=== PATIENT | male | born 1960 | race African-American/Black ===

== ENCOUNTER 2018-01-24 15:12 | Emergency (ER) | payer MEDICAID, OTHER ==
[~2018-01-24] VITALS: Ht 193 cm; Wt 146.0 kg
[2018-01-24] MEDS ORDERED: KETOROLAC 30MG/ML VIAL IV ONE (15:45)
[2018-01-24 18:36] LABS: CLARITY URINE CLEAR (CLEAR); COLOR URINE DARK YELLOW (YELLOW); KETONES URINE TRACE (NEGATIVE); LEUKOCYTE ESTERASE URINE NEGATIVE (NEGATIVE); NITRITE URINE NEGATIVE (NEGATIVE); OCCULT BLOOD URINE 1+ (NEGATIVE); PH URINE 5.5 (4.5-8.0); PROTEIN URINE 3+ (NEGATIVE); SPECIFIC GRAVITY URINE 1.043 (1.005-1.030)
[2018-01-24] MEDS ORDERED: FENTANYL CITRATE/PF 50MCG/ML 2ML VIAL IV ONE (18:45)
[2018-01-24 21:05] VITALS: BP 192/101
== END 2018-01-24 22:15 | disposition home or self-care (01) ==
LOC: ER 15:12
DX: R07.89 Other chest pain (principal); R07.81 Pleurodynia; N40.0 Benign prostatic hyperplasia without lower urinary tract symptoms; K86.9 Disease of pancreas, unspecified; E11.9 Type 2 diabetes mellitus without complications; I10 Essential (primary) hypertension; V43.92XA Unspecified car occupant injured in collision with other type car in traffic accident, initial encounter; W22.10XA Striking against or struck by unspecified automobile airbag, initial encounter; Y93.89 Activity, other specified; Y92.488 Other paved roadways as the place of occurrence of the external cause
CPT/HCPCS: 71101; 71250; 74176; 76705; 81003; 96374; 96375; 99284; J1885; J3010

== ENCOUNTER 2021-02-03 13:32 | Inpatient (IN) | payer MEDICAID ==
[~2021-02-03] VITALS: Ht 170.2 cm; Wt 157.0 kg
[2021-02-03] VITALS (10 sets, daily range): BP systolic 68–129; BP diastolic 29–85
[2021-02-03] MEDS ORDERED: CEFTRIAXONE 1 G PREMIX 50 ML IV ONE (14:00)
[2021-02-03] MEDS ORDERED: SODIUM CHLORIDE 0.9% 1000ML BAG (SEPSIS BOLUS) IV ONE (14:00)
[2021-02-03 14:20] LABS: HEMOGLOBIN. 13.5 g/dL (14.0-18.0); MEAN CORPUSCULAR HEMOGLOBIN 27.5 pg (28.0-32.0); MEAN CORPUSCULAR VOLUME 85.8 fL (80.0-94.0); PLATELET 191 x1000/uL (130-400); RED CELL DISTRIBUTION WIDTH 14.1 % (11.6-14.6)
[2021-02-03 14:25] LABS: CHLORIDE 94 mEq/L (98-107)
[2021-02-03 14:29] LABS: INR 1.3; PROTHROMBIN TIME 13.5 sec (9.6-11.0)
[2021-02-03 14:42] LABS: CLARITY URINE TURBID (CLEAR); COLOR URINE YELLOW (YELLOW); KETONES URINE 1+ (NEGATIVE); LEUKOCYTE ESTERASE URINE 2+ (NEGATIVE); NITRITE URINE NEGATIVE (NEGATIVE); OCCULT BLOOD URINE 3+ (NEGATIVE); PROTEIN URINE 2+ (NEGATIVE)
[2021-02-03] MEDS ORDERED: ASPIRIN 81MG TABLET PO ONE (15:00)
[2021-02-03] MEDS ORDERED: HEPARIN 25,000 UNITS PREMIX 250 ML IV ONE (15:00)
[2021-02-03] MEDS ORDERED: HEPARIN 5000 UNITS/ML VIAL IV ONE (15:00)
[2021-02-03] MEDS ORDERED: PIPERACILLIN/TAZ 3.375G PREMIX 50 ML IV ONE (15:45)
[2021-02-03] MEDS ORDERED: VANCOMYCIN 1 G PREMIX 200 ML IV ONE (15:45)
[2021-02-03] MEDS ORDERED: HEPARIN BOLUS PRN aPTT 30-44 IV ×2 (15:45→15:52)
[2021-02-03] MEDS ORDERED: HEPARIN BOLUS PRN aPTT <30 IV ×2 (15:45→15:52)
[2021-02-03] MEDS ORDERED: INSULIN REGULAR (DRIP) 100 UNITS in SODIUM CHLORIDE 0.9% 100 ML IV SCH (16:00)
[2021-02-03] MEDS ORDERED: HEPARIN 60 UNITS/KG BOLUS IV NR (16:00)
[2021-02-03] MEDS ORDERED: HEPARIN 25,000 UNITS in DEXT 5% WATER 250 ML IV SCH (16:00)
[2021-02-03 16:16] LABS: PLATELET ESTIMATE NORMAL
[2021-02-03 16:25] LABS: CREATINE KINASE 9217 IU/L (39-308)
[2021-02-03 18:48] LABS: PHOSPHORUS 3.6 mg/dL (2.5-4.9)
[2021-02-03] MEDS ORDERED: INSULIN REGULAR (DRIP) 100 UNITS in SODIUM CHLORIDE 0.9% 99 ML IV ONE (19:45)
[2021-02-03] MEDS ORDERED: DEXTROSE 50% WATER 50ML SYRINGE IV PRN ×2 (20:00)
[2021-02-03] MEDS: BLOOD SUGAR DIAGNOSTIC STRIP TEST SCH ×5 (20:11→23:22)
[2021-02-03] MEDS ORDERED: ONDANSETRON HCL 4MG/2ML INJ IV PRN (20:15)
[2021-02-03] MEDS ORDERED: ACETAMINOPHEN 650MG/20.3ML UDC GT PRN (20:15)
[2021-02-03] MEDS ORDERED: IPRATROPIUM/ALBUTEROL 0.5-3(2.5)MG/3ML NEB HHN PRN (20:15)
[2021-02-03] MEDS ORDERED: SODIUM CHLORIDE 0.9% 1,000 ML IV ONE (20:30)
[2021-02-03 20:32] LABS: BG CARBOXYHEMOGLOBIN 0.3 % (0.5-1.5); BG DEOXYHEMOGLOBIN 4.3 % (0.0-5.0); BG FRACTION INSPIRED OXYGEN 32; BG HCO3 ACT 23.4 mmol/L (22.0-26.0); BG METHEMOGLOBIN 0.2 % (0.0-1.5); BG OXYGEN SATURATION 95.7 % (92.0-98.5); BG OXYHEMOGLOBIN 95.2 % (94.0-97.0); BG PCO2 30.7 mmHg (35.0-45.0); BG PO2 79.7 mmHg (75.0-100.0); BG SAMPLE SITE LEFT RADIAL; BG TOTAL HEMOGLOBIN 13.2 g/dL (12.0-18.0); BG VENT MODE NASAL CANNULA
[2021-02-03] MEDS ORDERED: SODIUM POLYSTYRENE SULFONATE 15 G/60 ML BOT PO NR ×2 (21:00→23:00)
[2021-02-03] MEDS ORDERED: SODIUM CHLORIDE 0.9% 1000ML BAG (SEPSIS BOLUS) IV NR (21:00)
[2021-02-03] MEDS ORDERED: VANCOMYCIN 1 G PREMIX 200 ML IV NR ×2 (21:00→23:00)
[2021-02-03] MEDS ORDERED: SODIUM BICARBONATE 8.4% 1 MEQ/ML 50ML SYR IV NR (21:00)
[2021-02-03] MEDS ORDERED: CALCIUM GLUCONATE 1GM PREMIX 50 ML IV NR (21:00)
[2021-02-03] MEDS ORDERED: HEPARIN 25,000 UNITS PREMIX 250 ML IV SCH (21:30)
[2021-02-03] MEDS ORDERED: PIPERACILLIN/TAZOBACTAM 3.375 G in DEXTROSE 5% WATER 50 ML IV SCH (22:00)
[2021-02-03] MEDS: PIPERACILLIN/TAZOBACTAM 3.375 G in DEXTROSE 5% WATER 50 ML IV SCH (22:18)
[2021-02-03] MEDS ORDERED: NOREPINEPHRINE 8 MG in DEXTROSE 5% WATER 250 ML IV PRN (22:45)
[2021-02-03] MEDS ORDERED: AMIODARONE HCL 150 MG in DEXT 5% WATER 100 ML IV NR (23:00)
[2021-02-03 23:36] LABS: PHOSPHORUS 1.5 mg/dL (2.5-4.9)
[2021-02-03 23:41] LABS: CREATINE KINASE MB FRACTION 22.1 ng/mL (0.5-3.6)
[2021-02-03 23:59] LABS: HEPATITIS B SURFACE ANTIGEN NEGATIVE
[2021-02-04] VITALS (93 sets, daily range): BP systolic 86–143; BP diastolic 22–97
[2021-02-04] MEDS ORDERED: INSULIN REGULAR (DRIP) 100 UNITS in SODIUM CHLORIDE 0.9% 100 ML IV SCH
[2021-02-04] MEDS: AMIODARONE HCL 900 MG in DEXT 5% WATER 500 ML IV SCH ×2 (00:41→15:52)
[2021-02-04] MEDS: INSULIN REGULAR (DRIP) 100 UNITS in SODIUM CHLORIDE 0.9% 100 ML IV SCH ×2 (01:13→16:54)
[2021-02-04 06:26] LABS: HEMATOCRIT. 37.5 % (42.0-52.0); HEMOGLOBIN. 12.6 g/dL (14.0-18.0); MEAN CORPUSCULAR HEMOGLOBIN 27.8 pg (28.0-32.0); MEAN CORPUSCULAR VOLUME 82.8 fL (80.0-94.0); MEAN PLATELET VOLUME 9.4 fl (7.4-10.4); PLATELET 164 x1000/uL (130-400); RED BLOOD CELL COUNT 4.53 mill/uL (4.7-6.1)
[2021-02-04 06:30] LABS: CHLORIDE 113 mEq/L (98-107)
[2021-02-04] MEDS ORDERED: PHENYLEPHRINE 50 MG in DEXT 5% WATER 245 ML IV PRN (07:30)
[2021-02-04] MEDS: BLOOD SUGAR DIAGNOSTIC STRIP TEST SCH ×3 (08:00→12:00)
[2021-02-04] MEDS ORDERED: SODIUM CHLORIDE 0.9% 1,000 ML IV SCH (08:00)
[2021-02-04 08:14] LABS: BG BASE EXCESS -0.3 mmol/L (-2.0-2.0); BG CARBOXYHEMOGLOBIN 0.3 % (0.5-1.5); BG DEOXYHEMOGLOBIN 2.8 % (0.0-5.0); BG FRACTION INSPIRED OXYGEN 36; BG HCO3 ACT 23.7 mmol/L (22.0-26.0); BG METHEMOGLOBIN 0.3 % (0.0-1.5); BG OXYGEN SATURATION 97.2 % (92.0-98.5); BG OXYHEMOGLOBIN 96.6 % (94.0-97.0); BG PCO2 36.9 mmHg (35.0-45.0); BG PH 7.426 (7.350-7.450); BG PO2 98.6 mmHg (75.0-100.0); BG SAMPLE SITE RIGHT RADIAL; BG TOTAL HEMOGLOBIN 12.5 g/dL (12.0-18.0)
[2021-02-04] MEDS ORDERED: ASPIRIN 325MG EC TABLET PO SCH (09:00)
[2021-02-04] MEDS: SODIUM CHLORIDE 0.45% 1,000 ML IV SCH ×3 (09:05→21:46)
[2021-02-04] MEDS ORDERED: LIDOCAINE HCL 1% 10 MG/ML 10ML VIAL ONE (11:08)
[2021-02-04] MEDS ORDERED: IPRATROPIUM/ALBUTEROL 0.5-3(2.5)MG/3ML NEB HHN PRN (11:15)
[2021-02-04 11:35] LABS: PLATELET ESTIMATE NORMAL
[2021-02-04] MEDS ORDERED: DILTIAZEM HCL 5MG/ML 5ML VIAL IV NR (14:15)
[2021-02-04] MEDS ORDERED: AMIODARONE HCL 50MG/ML 3ML VIAL IV ONE (14:30)
[2021-02-04] MEDS ORDERED: AMIODARONE HCL 150 MG in DEXT 5% WATER 100 ML IV NR (15:00)
[2021-02-04] MEDS: PANTOPRAZOLE SODIUM 40 MG/VIAL IV SCH ×2 (15:02→20:09)
[2021-02-04] MEDS: PIPERACILLIN/TAZOBACTAM 3.375 G in DEXTROSE 5% WATER 50 ML IV SCH ×3 (15:59→21:46)
[2021-02-04] MEDS ORDERED: AMIODARONE HCL 150 MG in DEXT 5% WATER 97 ML IV PRN (19:00)
[2021-02-04] MEDS: METOPROLOL TARTRATE 25MG TABLET PO SCH (20:09)
[2021-02-04] MEDS: IPRATROPIUM BROMIDE (0.02%) 0.5MG/2.5ML NEB HHN SCH (20:36)
[2021-02-05] VITALS (104 sets, daily range): BP systolic 56–162; BP diastolic 26–114
[2021-02-05] MEDS: IPRATROPIUM BROMIDE (0.02%) 0.5MG/2.5ML NEB HHN SCH ×4 (01:28→20:13)
[2021-02-05 05:19] LABS: CHLORIDE 111 mEq/L (98-107); HEMATOCRIT. 35.7 % (42.0-52.0); HEMOGLOBIN. 11.7 g/dL (14.0-18.0); MEAN CORPUSCULAR HEMOGLOBIN 27.5 pg (28.0-32.0); MEAN CORPUSCULAR VOLUME 83.9 fL (80.0-94.0); MEAN PLATELET VOLUME 9.5 fl (7.4-10.4); PLATELET 130 x1000/uL (130-400); RED BLOOD CELL COUNT 4.26 mill/uL (4.7-6.1)
[2021-02-05 05:32] LABS: PHOSPHORUS 3.1 mg/dL (2.5-4.9)
[2021-02-05 05:42] LABS: CREATINE KINASE 3024 IU/L (39-308)
[2021-02-05] MEDS: ACETAMINOPHEN 650MG/20.3ML UDC GT PRN (05:54)
[2021-02-05] MEDS: SODIUM CHLORIDE 0.45% 1,000 ML IV SCH ×5 (06:00→18:20)
[2021-02-05] MEDS: AMIODARONE HCL 900 MG in DEXT 5% WATER 500 ML IV SCH (06:17)
[2021-02-05] MEDS: PIPERACILLIN/TAZOBACTAM 3.375 G in DEXTROSE 5% WATER 50 ML IV SCH ×3 (06:17→21:00)
[2021-02-05] MEDS: BLOOD SUGAR DIAGNOSTIC STRIP TEST SCH ×9 (06:33→22:00)
[2021-02-05] MEDS: PANTOPRAZOLE SODIUM 40 MG/VIAL IV SCH ×2 (09:14→20:59)
[2021-02-05] MEDS: METOPROLOL TARTRATE 25MG TABLET PO SCH ×2 (09:14→20:59)
[2021-02-05 09:45] LABS: BG BASE EXCESS -3.3 mmol/L (-2.0-2.0); BG CARBOXYHEMOGLOBIN 0.7 % (0.5-1.5); BG DEOXYHEMOGLOBIN 2.5 % (0.0-5.0); BG FRACTION INSPIRED OXYGEN 36; BG METHEMOGLOBIN 0.2 % (0.0-1.5); BG OXYGEN SATURATION 97.5 % (92.0-98.5); BG OXYHEMOGLOBIN 96.6 % (94.0-97.0); BG PCO2 35.2 mmHg (35.0-45.0); BG PH 7.393 (7.350-7.450); BG PO2 101.9 mmHg (75.0-100.0); BG SAMPLE SITE RIGHT RADIAL; BG TOTAL HEMOGLOBIN 12.5 g/dL (12.0-18.0); BG VENT MODE NASAL CANNULA
[2021-02-05] MEDS ORDERED: LABETALOL HCL 5MG/ML VIAL 20ML IV ONE (10:20)
[2021-02-05 10:25] LABS: PLATELET ESTIMATE NORMAL
[2021-02-05] MEDS: INSULIN REGULAR (DRIP) 100 UNITS in SODIUM CHLORIDE 0.9% 100 ML IV SCH (22:50)
[2021-02-06] VITALS (48 sets, daily range): BP systolic 58–155; BP diastolic 35–97
[2021-02-06] MEDS ORDERED: DEXTROSE 50% WATER 50ML SYRINGE IV PRN (00:30)
[2021-02-06] MEDS: SODIUM CHLORIDE 0.45% 1,000 ML IV SCH ×3 (00:45→21:46)
[2021-02-06] MEDS: AMIODARONE HCL 900 MG in DEXT 5% WATER 482 ML IV SCH ×2 (00:45→23:18)
[2021-02-06] MEDS: INSULIN GLARGINE UD 100 UNITS/ML SYR SUBCUT SCH ×2 (00:56→21:44)
[2021-02-06] MEDS: IPRATROPIUM BROMIDE (0.02%) 0.5MG/2.5ML NEB HHN SCH ×4 (02:07→20:43)
[2021-02-06] MEDS: ACETAMINOPHEN 650MG/20.3ML UDC GT PRN (02:37)
[2021-02-06 05:48] LABS: HEMATOCRIT. 36.9 % (42.0-52.0); HEMOGLOBIN. 12.3 g/dL (14.0-18.0); MEAN CORPUSCULAR HEMOGLOBIN 27.6 pg (28.0-32.0); MEAN CORPUSCULAR VOLUME 82.8 fL (80.0-94.0); MEAN PLATELET VOLUME 9.7 fl (7.4-10.4); PLATELET 133 x1000/uL (130-400); RED BLOOD CELL COUNT 4.46 mill/uL (4.7-6.1); RED CELL DISTRIBUTION WIDTH 13.9 % (11.6-14.6)
[2021-02-06 05:49] LABS: CHLORIDE 110 mEq/L (98-107)
[2021-02-06 05:59] LABS: PHOSPHORUS 3.5 mg/dL (2.5-4.9)
[2021-02-06] MEDS: BLOOD SUGAR DIAGNOSTIC STRIP TEST SCH ×4 (06:04→21:34)
[2021-02-06] MEDS: PIPERACILLIN/TAZOBACTAM 3.375 G in DEXTROSE 5% WATER 50 ML IV SCH ×2 (06:41→14:55)
[2021-02-06] MEDS: INSULIN LISPRO 100 UNITS/ML SUBCUT SCH ×7 (06:44→21:45)
[2021-02-06 08:10] LABS: BG BASE EXCESS -4.8 mmol/L (-2.0-2.0); BG CARBOXYHEMOGLOBIN 0.8 % (0.5-1.5); BG DEOXYHEMOGLOBIN 2.3 % (0.0-5.0); BG HCO3 ACT 19.8 mmol/L (22.0-26.0); BG METHEMOGLOBIN 0.2 % (0.0-1.5); BG OXYGEN SATURATION 97.7 % (92.0-98.5); BG OXYHEMOGLOBIN 96.7 % (94.0-97.0); BG PCO2 35.2 mmHg (35.0-45.0); BG PH 7.368 (7.350-7.450); BG PO2 112.4 mmHg (75.0-100.0); BG SAMPLE SITE RIGHT RADIAL; BG TOTAL HEMOGLOBIN 13.1 g/dL (12.0-18.0); BG VENT MODE NASAL CANNULA
[2021-02-06] MEDS: METOPROLOL TARTRATE 25MG TABLET PO SCH ×2 (09:36→20:38)
[2021-02-06] MEDS: PANTOPRAZOLE SODIUM 40 MG/VIAL IV SCH ×2 (09:36→20:38)
[2021-02-06] MEDS ORDERED: VANCOMYCIN 1250MG in DEXTROSE 5% WATER 250ML IV SCH (11:00)
[2021-02-06 11:55] LABS: NUCLEATED RED BLOOD CELLS 1 /100 WBC
[2021-02-06 11:56] LABS: PLATELET ESTIMATE NORMAL
[2021-02-06] MEDS ORDERED: ALBUMIN HUMAN 25GM/100ML (25%) IV NR (14:00)
[2021-02-06] MEDS ORDERED: CEFTRIAXONE 2 G PREMIX 50 ML IV SCH (17:15)
[2021-02-06] MEDS: CEFTRIAXONE 2 G in DEXTROSE 5% WATER 50 ML IV SCH (19:51)
[2021-02-06] MEDS: CHLORPROMAZINE HCL 10 MG TABLET PO SCH (21:43)
[2021-02-07] VITALS (51 sets, daily range): BP systolic 125–183; BP diastolic 60–113
[2021-02-07] MEDS: IPRATROPIUM BROMIDE (0.02%) 0.5MG/2.5ML NEB HHN SCH ×4 (00:31→21:10)
[2021-02-07] MEDS: SODIUM CHLORIDE 0.45% 1,000 ML IV SCH ×4 (01:31→22:22)
[2021-02-07 05:07] LABS: HEMATOCRIT. 35.4 % (42.0-52.0); HEMOGLOBIN. 11.7 g/dL (14.0-18.0); MEAN CORPUSCULAR HEMOGLOBIN 27.3 pg (28.0-32.0); MEAN CORPUSCULAR VOLUME 82.6 fL (80.0-94.0); MEAN PLATELET VOLUME 9.5 fl (7.4-10.4); PLATELET 139 x1000/uL (130-400); RED BLOOD CELL COUNT 4.29 mill/uL (4.7-6.1); RED CELL DISTRIBUTION WIDTH 14.1 % (11.6-14.6)
[2021-02-07 05:30] LABS: PHOSPHORUS 3.4 mg/dL (2.5-4.9)
[2021-02-07] MEDS: BLOOD SUGAR DIAGNOSTIC STRIP TEST SCH ×4 (06:12→21:00)
[2021-02-07] MEDS: CHLORPROMAZINE HCL 10 MG TABLET PO SCH (06:15)
[2021-02-07] MEDS: INSULIN LISPRO 100 UNITS/ML SUBCUT SCH ×8 (06:16→22:08)
[2021-02-07] MEDS: PANTOPRAZOLE SODIUM 40 MG/VIAL IV SCH ×2 (09:00→22:05)
[2021-02-07] MEDS: METOPROLOL TARTRATE 25MG TABLET PO SCH ×2 (09:00→22:06)
[2021-02-07 09:15] LABS: PLATELET ESTIMATE NORMAL
[2021-02-07] MEDS ORDERED: CHLORPROMAZINE HCL 10 MG TABLET PO PRN (12:15)
[2021-02-07] MEDS ORDERED: CLONIDINE 0.1MG TABLET PO PRN (13:15)
[2021-02-07] MEDS: AMLODIPINE 5MG TABLET PO SCH ×2 (14:20→22:05)
[2021-02-07] MEDS: INSULIN GLARGINE UD 100 UNITS/ML SYR SUBCUT SCH ×2 (14:21→22:07)
[2021-02-07] MEDS: HYDRALAZINE HCL 25MG TABLET PO SCH (17:44)
[2021-02-07] MEDS: CEFTRIAXONE 2 G in DEXTROSE 5% WATER 50 ML IV SCH (22:34)
[2021-02-07] MEDS: AMIODARONE HCL 900 MG in DEXT 5% WATER 482 ML IV SCH (23:32)
[2021-02-08] VITALS (11 sets, daily range): BP systolic 120–144; BP diastolic 53–80
[2021-02-08] MEDS: IPRATROPIUM BROMIDE (0.02%) 0.5MG/2.5ML NEB HHN SCH ×3 (01:30→21:53)
[2021-02-08 06:16] LABS: HEMATOCRIT. 34.6 % (42.0-52.0); HEMOGLOBIN. 11.5 g/dL (14.0-18.0); MEAN CORPUSCULAR HEMOGLOBIN 27.3 pg (28.0-32.0); MEAN CORPUSCULAR VOLUME 82.2 fL (80.0-94.0); MEAN PLATELET VOLUME 9.4 fl (7.4-10.4); PLATELET 120 x1000/uL (130-400); RED BLOOD CELL COUNT 4.21 mill/uL (4.7-6.1); RED CELL DISTRIBUTION WIDTH 13.8 % (11.6-14.6)
[2021-02-08 07:30] LABS: PHOSPHORUS 3.2 mg/dL (2.5-4.9)
[2021-02-08] MEDS: BLOOD SUGAR DIAGNOSTIC STRIP TEST SCH ×4 (07:37→21:29)
[2021-02-08] MEDS: INSULIN LISPRO 100 UNITS/ML SUBCUT SCH ×8 (07:44→21:33)
[2021-02-08] MEDS: PANTOPRAZOLE SODIUM 40 MG/VIAL IV SCH ×2 (10:07→21:30)
[2021-02-08] MEDS: HYDRALAZINE HCL 25MG TABLET PO SCH ×2 (10:07→18:03)
[2021-02-08] MEDS: METOPROLOL TARTRATE 25MG TABLET PO SCH ×2 (10:08→21:31)
[2021-02-08] MEDS: AMLODIPINE 5MG TABLET PO SCH ×2 (10:08→21:30)
[2021-02-08] MEDS: INSULIN GLARGINE UD 100 UNITS/ML SYR SUBCUT SCH ×2 (10:09→21:34)
[2021-02-08] MEDS: SODIUM CHLORIDE 0.45% 1,000 ML IV SCH (10:15)
[2021-02-08] MEDS ORDERED: THROAT LOZENGES-BENZOCAINE/MENTH/CETYLPYRD CL LOZENGES MM PRN (10:30)
[2021-02-08 12:17] LABS: PLATELET ESTIMATE SLIGHTLY DECREASED
[2021-02-08] MEDS: SODIUM CHLORIDE 0.9% 1,000 ML IV SCH ×2 (14:33→23:25)
[2021-02-08] MEDS: CEFTRIAXONE 2 G in DEXTROSE 5% WATER 50 ML IV SCH (18:03)
[2021-02-09] VITALS (12 sets, daily range): BP systolic 107–160; BP diastolic 56–93
[2021-02-09] MEDS: IPRATROPIUM BROMIDE (0.02%) 0.5MG/2.5ML NEB HHN SCH ×3 (01:00→21:50)
[2021-02-09] MEDS: BLOOD SUGAR DIAGNOSTIC STRIP TEST SCH ×4 (06:19→21:41)
[2021-02-09 06:43] LABS: HEMATOCRIT. 34.5 % (42.0-52.0); HEMOGLOBIN. 11.6 g/dL (14.0-18.0); MEAN CORPUSCULAR HEMOGLOBIN 27.8 pg (28.0-32.0); MEAN CORPUSCULAR VOLUME 82.7 fL (80.0-94.0); MEAN PLATELET VOLUME 9.6 fl (7.4-10.4); PLATELET 126 x1000/uL (130-400); RED BLOOD CELL COUNT 4.17 mill/uL (4.7-6.1)
[2021-02-09 09:03] LABS: PHOSPHORUS 2.9 mg/dL (2.5-4.9)
[2021-02-09] MEDS: HYDRALAZINE HCL 25MG TABLET PO SCH ×2 (09:56→18:04)
[2021-02-09] MEDS: INSULIN LISPRO 100 UNITS/ML SUBCUT SCH ×8 (09:57→21:41)
[2021-02-09] MEDS: AMLODIPINE 5MG TABLET PO SCH ×2 (09:57→21:39)
[2021-02-09] MEDS: SODIUM CHLORIDE 0.9% 1,000 ML IV SCH ×2 (09:57→21:37)
[2021-02-09] MEDS: METOPROLOL TARTRATE 25MG TABLET PO SCH ×2 (09:57→21:39)
[2021-02-09] MEDS: PANTOPRAZOLE SODIUM 40 MG/VIAL IV SCH ×2 (09:59→21:39)
[2021-02-09] MEDS: INSULIN GLARGINE UD 100 UNITS/ML SYR SUBCUT SCH ×2 (10:06→21:42)
[2021-02-09] MEDS ORDERED: POTASSIUM CHLORIDE 20MEQ TABLET SR PO SCH (13:45)
[2021-02-09] MEDS: CEFTRIAXONE 2 G in DEXTROSE 5% WATER 50 ML IV SCH (18:04)
[2021-02-09 20:20] LABS: PLATELET ESTIMATE DECREASED
[2021-02-10] VITALS (11 sets, daily range): BP systolic 110–168; BP diastolic 55–86
[2021-02-10] MEDS: APIXABAN 5 MG TABLET PO SCH ×3 (01:05→17:44)
[2021-02-10] MEDS: ACETAMINOPHEN 650MG/20.3ML UDC GT PRN ×2 (01:16→10:29)
[2021-02-10] MEDS: IPRATROPIUM BROMIDE (0.02%) 0.5MG/2.5ML NEB HHN SCH ×4 (02:59→21:10)
[2021-02-10] MEDS: SODIUM CHLORIDE 0.9% 1,000 ML IV SCH (05:45)
[2021-02-10] MEDS: BLOOD SUGAR DIAGNOSTIC STRIP TEST SCH ×4 (06:28→20:26)
[2021-02-10] MEDS: INSULIN LISPRO 100 UNITS/ML SUBCUT SCH ×8 (06:28→20:42)
[2021-02-10 07:10] LABS: HEMATOCRIT. 32.1 % (42.0-52.0); HEMOGLOBIN. 10.8 g/dL (14.0-18.0); MEAN CORPUSCULAR HEMOGLOBIN 27.8 pg (28.0-32.0); MEAN CORPUSCULAR VOLUME 82.6 fL (80.0-94.0); MEAN PLATELET VOLUME 8.8 fl (7.4-10.4); PLATELET 157 x1000/uL (130-400); RED BLOOD CELL COUNT 3.89 mill/uL (4.7-6.1)
[2021-02-10] MEDS ORDERED: MAGNESIUM OXIDE 400MG TABLET PO SCH (08:30)
[2021-02-10 10:11] LABS: PLATELET ESTIMATE NORMAL
[2021-02-10] MEDS: ASPIRIN 81MG TABLET PO SCH (10:17)
[2021-02-10] MEDS: HYDRALAZINE HCL 50MG TABLET PO SCH ×2 (10:18→20:01)
[2021-02-10] MEDS: METOPROLOL TARTRATE 50MG TABLET PO SCH ×2 (10:19→20:01)
[2021-02-10] MEDS: AMLODIPINE 5MG TABLET PO SCH ×2 (10:19→20:01)
[2021-02-10] MEDS: PANTOPRAZOLE SODIUM 40 MG/VIAL IV SCH ×2 (10:19→20:01)
[2021-02-10] MEDS: INSULIN GLARGINE UD 100 UNITS/ML SYR SUBCUT SCH ×2 (10:22→22:31)
[2021-02-10] MEDS: CEFTRIAXONE 2 G in DEXTROSE 5% WATER 50 ML IV SCH (19:59)
[2021-02-11] VITALS (8 sets, daily range): BP systolic 124–170; BP diastolic 67–93
[2021-02-11] MEDS: IPRATROPIUM BROMIDE (0.02%) 0.5MG/2.5ML NEB HHN SCH ×3 (00:55→13:17)
[2021-02-11] MEDS: BLOOD SUGAR DIAGNOSTIC STRIP TEST SCH ×3 (06:10→17:08)
[2021-02-11 06:52] LABS: HEMATOCRIT. 31.8 % (42.0-52.0); HEMOGLOBIN. 10.8 g/dL (14.0-18.0); MEAN CORPUSCULAR HEMOGLOBIN 27.8 pg (28.0-32.0); MEAN PLATELET VOLUME 8.9 fl (7.4-10.4); PLATELET 244 x1000/uL (130-400); RED BLOOD CELL COUNT 3.88 mill/uL (4.7-6.1); RED CELL DISTRIBUTION WIDTH 14.2 % (11.6-14.6)
[2021-02-11 07:07] LABS: PHOSPHORUS 3.3 mg/dL (2.5-4.9)
[2021-02-11] MEDS: INSULIN LISPRO 100 UNITS/ML SUBCUT SCH ×6 (07:20→17:20)
[2021-02-11] MEDS: ASPIRIN 81MG TABLET PO SCH (08:40)
[2021-02-11] MEDS: PANTOPRAZOLE SODIUM 40 MG/VIAL IV SCH (08:40)
[2021-02-11] MEDS: AMLODIPINE 5MG TABLET PO SCH (08:41)
[2021-02-11] MEDS: APIXABAN 5 MG TABLET PO SCH ×2 (08:41→17:14)
[2021-02-11] MEDS: HYDRALAZINE HCL 50MG TABLET PO SCH (08:41)
[2021-02-11] MEDS: METOPROLOL TARTRATE 50MG TABLET PO SCH (08:41)
[2021-02-11] MEDS ORDERED: MAGNESIUM 2 G PREMIX 50 ML IV NR (11:00)
[2021-02-11 11:11] LABS: PLATELET ESTIMATE NORMAL
[2021-02-11] MEDS: INSULIN GLARGINE UD 100 UNITS/ML SYR SUBCUT SCH (11:22)
[2021-02-11] MEDS ORDERED: LEVOFLOXACIN 250MG TABLET PO SCH (16:30)
== END 2021-02-11 18:41 | DRG 720 ==
LOC: EDBEDREQSVC 14:37 → EDBEDREQTM 14:37 → ER 14:49 → EDBEDREQTM 15:48 → EDBEDREQ 15:48 → EDBEDREQSVC 15:48 → ENRESERV 20:22 → MICUNO 21:09 → 3WST 02-07 16:25
PROVIDERS: ADMIT Internal Medicine; ATTEND Internal Medicine
PROC: 02HV33Z Insertion of Infusion Device into Superior Vena Cava, Percutaneous Approach (ICD-10-PCS; principal; 2021-02-04)
PROC: B548ZZA Ultrasonography of Superior Vena Cava, Guidance (ICD-10-PCS; 2021-02-04)
DX: A41.51 Sepsis due to Escherichia coli [E. coli] (principal); N17.0 Acute kidney failure with tubular necrosis; J96.00 Acute respiratory failure, unspecified whether with hypoxia or hypercapnia; R65.21 Severe sepsis with septic shock; E11.10 Type 2 diabetes mellitus with ketoacidosis without coma; D68.59 Other primary thrombophilia; E43 Unspecified severe protein-calorie malnutrition; E87.1 Hypo-osmolality and hyponatremia; I21.4 Non-ST elevation (NSTEMI) myocardial infarction; G92.8 Other toxic encephalopathy; Z68.43 Body mass index [BMI] 50.0-59.9, adult; I27.29 Other secondary pulmonary hypertension; I48.20 Chronic atrial fibrillation, unspecified; E87.0 Hyperosmolality and hypernatremia; I42.9 Cardiomyopathy, unspecified; M62.82 Rhabdomyolysis; E86.1 Hypovolemia; I50.20 Unspecified systolic (congestive) heart failure; E87.5 Hyperkalemia; N12 Tubulo-interstitial nephritis, not specified as acute or chronic; E78.5 Hyperlipidemia, unspecified; G89.29 Other chronic pain; M54.50 Low back pain, unspecified; E78.00 Pure hypercholesterolemia, unspecified; R74.01 Elevation of levels of liver transaminase levels; K92.1 Melena; K40.90 Unilateral inguinal hernia, without obstruction or gangrene, not specified as recurrent; D64.9 Anemia, unspecified; E87.8 Other disorders of electrolyte and fluid balance, not elsewhere classified; S00.03XA Contusion of scalp, initial encounter; E66.9 Obesity, unspecified; M16.11 Unilateral primary osteoarthritis, right hip; R79.89 Other specified abnormal findings of blood chemistry; R19.7 Diarrhea, unspecified; I11.0 Hypertensive heart disease with heart failure; J45.909 Unspecified asthma, uncomplicated; E87.3 Alkalosis; X58.XXXA Exposure to other specified factors, initial encounter; Z79.01 Long term (current) use of anticoagulants; Y93.89 Activity, other specified; Y92.89 Other specified places as the place of occurrence of the external cause; Y99.8 Other external cause status; Z82.49 Family history of ischemic heart disease and other diseases of the circulatory system; Z83.3 Family history of diabetes mellitus; Z86.73 Personal history of transient ischemic attack (TIA), and cerebral infarction without residual deficits
CPT/HCPCS: 36415; 36600; 71045; 71250; 74176; 76937; 80048; 80053; 80061; 80202; 81003; 82010; 82140; 82270; 82375; 82550; 82553; 82805; 82962; 83036; 83605; 83735; 83930; 84100; 84145; 84484; 84550; 85025; 86705; 86709; 86803; 87077; 87186; 87340; 93005; 93306; 93970; 94640; 97110; 97162; 97166; 97530; 99291; C1725; C9113; J0282; J0610; J0696; J1644; J1815; J2405; J2543; J3370; J3475; J3490; J7030; J7040; J7050; J7060; P9047; Q0161

== ENCOUNTER 2021-04-04 20:56 | Emergency (ER) | payer MEDICAID ==
[~2021-04-04] VITALS: Ht 182.9 cm; Wt 127.0 kg
[2021-04-04 23:01] LABS: CLARITY URINE CLEAR (CLEAR); COLOR URINE YELLOW (YELLOW); KETONES URINE NEGATIVE (NEGATIVE); LEUKOCYTE ESTERASE URINE 1+ (NEGATIVE); NITRITE URINE NEGATIVE (NEGATIVE); OCCULT BLOOD URINE NEGATIVE (NEGATIVE); PH URINE 6.5 (4.5-8.0); PROTEIN URINE 1+ (NEGATIVE); SPECIFIC GRAVITY URINE 1.011 (1.005-1.030); UROBILINOGEN URINE 0.2 E.U./dL (0.2-1.0)
[2021-04-04 23:27] LABS: CHLORIDE 104 mEq/L (98-107)
[2021-04-04 23:31] LABS: BASOPHILS % 0.4 % (0.0-2.0); EOSINOPHILS % 0.2 % (0.0-5.0); HEMATOCRIT. 34.6 % (42.0-52.0); HEMOGLOBIN. 11.7 g/dL (14.0-18.0); LYMPHOCYTES % 11.8 % (20.0-50.0); MEAN CORPUSCULAR HEMOGLOBIN 27.6 pg (28.0-32.0); MEAN CORPUSCULAR VOLUME 81.3 fL (80.0-94.0); MEAN PLATELET VOLUME 8.2 fl (7.4-10.4); MONOCYTES % 6.2 % (2.0-8.0); NEUTROPHILS % 81.4 % (40.0-76.0); PLATELET 110 x1000/uL (130-400); RED BLOOD CELL COUNT 4.25 mill/uL (4.7-6.1); RED CELL DISTRIBUTION WIDTH 15.1 % (11.6-14.6)
[2021-04-05] MEDS ORDERED: CEFTRIAXONE 1 G PREMIX 50 ML IV ONE
[2021-04-05] MEDS ORDERED: IPRATROPIUM BROMIDE (0.02%) 0.5MG/2.5ML NEB HHN STA (00:31)
[2021-04-05] MEDS ORDERED: SODIUM CHLORIDE 0.9% 1,000 ML IV ONE (00:45)
[2021-04-05] MEDS ORDERED: ALBUTEROL (0.083%) 2.5MG/3ML NEB HHN SCH (01:00)
[2021-04-05 02:00] VITALS: BP 165/103
[2021-04-05] MEDS ORDERED: CEFP200T13 MT (02:01)
== END 2021-04-05 03:17 | disposition home or self-care (01) ==
LOC: ER 20:56
DX: N39.0 Urinary tract infection, site not specified (principal); E11.649 Type 2 diabetes mellitus with hypoglycemia without coma; I10 Essential (primary) hypertension; Z20.822 Contact with and (suspected) exposure to COVID-19; E78.00 Pure hypercholesterolemia, unspecified; Z79.4 Long term (current) use of insulin; Z79.899 Other long term (current) drug therapy
CPT/HCPCS: 36415; 71045; 80053; 81003; 82962; 83880; 84484; 85025; 87426; 93005; 96365; 99285; J0696; J7030

== ENCOUNTER 2022-02-09 08:35 | Inpatient (IN) | payer MEDICAID, OTHER ==
[~2022-02-09] VITALS: Ht 188 cm; Wt 131.5 kg
[~2022-02-09 08:35] MED LIST: CEFP200T13 MT
[2022-02-09] MEDS ORDERED: SODIUM CHLORIDE 0.9% 1,000 ML IV ONE (09:30)
[2022-02-09 10:07] LABS: HEMATOCRIT. 40.3 % (42.0-52.0); HEMOGLOBIN. 13.5 g/dL (14.0-18.0); MEAN CORPUSCULAR HEMOGLOBIN 27.2 pg (28.0-32.0); MEAN CORPUSCULAR VOLUME 80.9 fL (80.0-94.0); MEAN PLATELET VOLUME 8.8 fl (7.4-10.4); PLATELET 417 x1000/uL (130-400); RED BLOOD CELL COUNT 4.98 mill/uL (4.7-6.1); RED CELL DISTRIBUTION WIDTH 14.1 % (11.6-14.6)
[2022-02-09 10:16] LABS: INR 1.1; PROTHROMBIN TIME 11.9 sec (9.6-11.0)
[2022-02-09 10:18] LABS: CHLORIDE 95 mEq/L (98-107)
[2022-02-09 10:37] LABS: CREATINE KINASE 1248 IU/L (39-308)
[2022-02-09 10:50] LABS: PLATELET ESTIMATE INCREASED
[2022-02-09] MEDS ORDERED: CALCIUM CHLORIDE 1GM/10ML SYR IV ONE (11:00)
[2022-02-09] MEDS ORDERED: INSULIN REGULAR (HUMULIN R) 300UNITS/3ML VIAL IV ONE ×2 (11:00→13:15)
[2022-02-09 11:32] LABS: BG BASE EXCESS -7.8 mmol/L (-2.0-2.0); BG CARBOXYHEMOGLOBIN 0.8 % (0.5-1.5); BG DEOXYHEMOGLOBIN 3.9 % (0.0-5.0); BG FRACTION INSPIRED OXYGEN 21; BG HCO3 ACT 17.1 mmol/L (22.0-26.0); BG METHEMOGLOBIN 0.3 % (0.0-1.5); BG OXYGEN SATURATION 96.1 % (92.0-98.5); BG PCO2 33.2 mmHg (35.0-45.0); BG PO2 86.3 mmHg (75.0-100.0); BG SAMPLE SITE RIGHT RADIAL; BG TOTAL HEMOGLOBIN 13.4 g/dL (12.0-18.0); BG VENT MODE ROOM AIR
[2022-02-09] MEDS ORDERED: INSULIN REGULAR (DRIP) 100 UNITS in SODIUM CHLORIDE 0.9% 99 ML IV SCH (11:45)
[2022-02-09] MEDS ORDERED: MORPHINE SULFATE 4 MG/ML CPJ (NOT FOR IM USE) IV ONE ×2 (11:45→15:45)
[2022-02-09] MEDS ORDERED: INSULIN REGULAR 100U/100ML PMX 100 ML IV SCH (11:48)
[2022-02-09 12:14] LABS: CLARITY URINE CLEAR (CLEAR); COLOR URINE YELLOW (YELLOW); KETONES URINE 1+ (NEGATIVE); LEUKOCYTE ESTERASE URINE NEGATIVE (NEGATIVE); NITRITE URINE NEGATIVE (NEGATIVE); OCCULT BLOOD URINE 2+ (NEGATIVE); PROTEIN URINE 1+ (NEGATIVE); SPECIFIC GRAVITY URINE 1.023 (1.005-1.030); UROBILINOGEN URINE 0.2 E.U./dL (0.2-1.0)
[2022-02-09 16:03] LABS: PHOSPHORUS 4.2 mg/dL (2.5-4.9)
[2022-02-10] MEDS ORDERED: DEXAMETHASONE 4MG/ML 1ML VIAL IV SCH
[2022-02-10 01:14] VITALS: BP 114/57
[2022-02-10 08:00] VITALS: BP 98/62
[2022-02-10] MEDS ORDERED: DEXTROSE 50% WATER 50ML SYRINGE IV PRN (09:00)
[2022-02-10] MEDS ORDERED: ONDANSETRON HCL 4MG/2ML INJ IV PRN (09:00)
[2022-02-10] MEDS ORDERED: NALOXONE HCL 0.4MG/ML VIAL IV PRN (09:00)
[2022-02-10] MEDS ORDERED: ACETAMINOPHEN 325MG TABLET PO PRN (09:30)
[2022-02-10] MEDS: HYDROCODONE/ACETAMINOPHEN 10/325MG TABLET PO SCH ×3 (10:53→19:28)
[2022-02-10] MEDS: SODIUM CHLORIDE 0.9% 1,000 ML IV SCH ×2 (10:58→19:29)
[2022-02-10] MEDS: INSULIN GLARGINE 100 UNITS/ML SUBCUT SCH ×2 (10:59→22:04)
[2022-02-10 11:59] LABS: HEMATOCRIT. 35.9 % (42.0-52.0); HEMOGLOBIN. 11.9 g/dL (14.0-18.0); MEAN CORPUSCULAR HEMOGLOBIN 26.7 pg (28.0-32.0); MEAN CORPUSCULAR VOLUME 80.8 fL (80.0-94.0); MEAN PLATELET VOLUME 8.8 fl (7.4-10.4); PLATELET 398 x1000/uL (130-400); RED BLOOD CELL COUNT 4.45 mill/uL (4.7-6.1)
[2022-02-10] MEDS: BLOOD SUGAR DIAGNOSTIC STRIP TEST SCH ×3 (12:20→21:00)
[2022-02-10] MEDS ORDERED: SODIUM POLYSTYRENE SULFONATE 15 G/60 ML BOT PO NR (13:00)
[2022-02-10] MEDS: INSULIN LISPRO 100 UNITS/ML SUBCUT SCH ×3 (15:41→22:03)
[2022-02-10] MEDS ORDERED: INSULIN LISPRO 100 UNITS/ML SUBCUT SCH (17:20)
[2022-02-10 18:09] LABS: PLATELET ESTIMATE NORMAL
[2022-02-10 20:00] VITALS: BP 147/82
[2022-02-11] VITALS: BP 129/83
[2022-02-11 04:00] VITALS: BP 116/58
[2022-02-11] MEDS: HYDROCODONE/ACETAMINOPHEN 10/325MG TABLET PO SCH ×3 (05:03→20:00)
[2022-02-11] MEDS: SODIUM CHLORIDE 0.9% 1,000 ML IV SCH ×2 (05:04→16:27)
[2022-02-11] MEDS: BLOOD SUGAR DIAGNOSTIC STRIP TEST SCH ×4 (07:35→21:39)
[2022-02-11 07:54] LABS: BASOPHILS % 0.1 % (0.0-2.0); EOSINOPHILS % 0.5 % (0.0-5.0); HEMATOCRIT. 34.4 % (42.0-52.0); HEMOGLOBIN. 11.6 g/dL (14.0-18.0); LYMPHOCYTES % 15.3 % (20.0-50.0); MEAN CORPUSCULAR HEMOGLOBIN 26.9 pg (28.0-32.0); MEAN CORPUSCULAR VOLUME 79.7 fL (80.0-94.0); MEAN PLATELET VOLUME 8.4 fl (7.4-10.4); MONOCYTES % 10.7 % (2.0-8.0); NEUTROPHILS % 73.4 % (40.0-76.0); PLATELET 356 x1000/uL (130-400); RED BLOOD CELL COUNT 4.32 mill/uL (4.7-6.1); RED CELL DISTRIBUTION WIDTH 13.8 % (11.6-14.6)
[2022-02-11 08:00] VITALS: BP 126/75
[2022-02-11] MEDS: INSULIN GLARGINE 100 UNITS/ML SUBCUT SCH ×2 (10:01→21:38)
[2022-02-11] MEDS: INSULIN LISPRO 100 UNITS/ML SUBCUT SCH ×4 (10:02→21:39)
[2022-02-11 12:00] VITALS: BP 112/65
[2022-02-11] MEDS ORDERED: VANCOMYCIN 2,000 MG in DEXT 5% WATER 500 ML IV NR (15:00)
[2022-02-11 16:00] VITALS: BP 111/71
[2022-02-11] MEDS: CEFTRIAXONE 1,000 MG in DEXTROSE 5% WATER 50 ML IV SCH (16:25)
[2022-02-11] MEDS: MORPHINE SULFATE 2 MG/ML CPJ (NOT FOR IM USE) IV PRN ×2 (16:30→21:24)
[2022-02-11] MEDS ORDERED: GADOTERATE MEGLUMINE 5 MMOL/10 ML VIAL IV ONE (19:54)
[2022-02-11 20:00] VITALS: BP 102/60
[2022-02-12] VITALS (59 sets, daily range): BP systolic 90–159; BP diastolic 3–77
[2022-02-12] MEDS: SODIUM CHLORIDE 0.9% 1,000 ML IV SCH (01:08)
[2022-02-12] MEDS: HYDROCODONE/ACETAMINOPHEN 10/325MG TABLET PO SCH ×5 (04:00→20:12)
[2022-02-12] MEDS ORDERED: LIDOCAINE HCL 1%/EPI 1:200,000 30 ML VIAL ONE (06:19)
[2022-02-12] MEDS ORDERED: THROMBIN (BOVINE) 5000 UNITS/VIAL TOP ONE (06:19)
[2022-02-12] MEDS ORDERED: GENTAMICIN SULF 40MG/ML 2ML VIAL ONE (06:19)
[2022-02-12] MEDS ORDERED: PROPOFOL 200MG/20ML VIAL IV ONE (06:31)
[2022-02-12] MEDS ORDERED: ROCURONIUM BROMIDE 10MG/ML VIAL 5ML IV ONE ×4 (06:31→09:50)
[2022-02-12] MEDS ORDERED: FENTANYL CITRATE/PF 50MCG/ML 2ML VIAL ONE (06:31)
[2022-02-12] MEDS ORDERED: MIDAZOLAM HCL 2 MG/2 ML VIAL ONE (06:32)
[2022-02-12] MEDS: INSULIN LISPRO 100 UNITS/ML SUBCUT SCH ×3 (06:33→21:25)
[2022-02-12] MEDS: BLOOD SUGAR DIAGNOSTIC STRIP TEST SCH ×3 (06:33→21:31)
[2022-02-12] MEDS ORDERED: PHENYLEPHRINE HCL 10 MG/ML 1ML (IV VIAL) IV ONE (06:34)
[2022-02-12] MEDS ORDERED: HYDROMORPHONE HCL/PF 2MG/ML CPJ ONE (07:57)
[2022-02-12 08:10] LABS: BASOPHILS % 0.3 % (0.0-2.0); EOSINOPHILS % 0.7 % (0.0-5.0); HEMATOCRIT. 35.7 % (42.0-52.0); HEMOGLOBIN. 12.2 g/dL (14.0-18.0); LYMPHOCYTES % 17.6 % (20.0-50.0); MEAN CORPUSCULAR HEMOGLOBIN 27.5 pg (28.0-32.0); MEAN CORPUSCULAR VOLUME 80.8 fL (80.0-94.0); MEAN PLATELET VOLUME 8.3 fl (7.4-10.4); MONOCYTES % 12.8 % (2.0-8.0); NEUTROPHILS % 68.6 % (40.0-76.0); PLATELET 312 x1000/uL (130-400); RED BLOOD CELL COUNT 4.42 mill/uL (4.7-6.1)
[2022-02-12] MEDS ORDERED: EPHEDRINE SULFATE 50MG/ML VIAL ONE (08:28)
[2022-02-12 08:32] LABS: CHLORIDE 100 mEq/L (98-107)
[2022-02-12] MEDS ORDERED: LIDOCAINE HCL 1% 10 MG/ML 10ML VIAL ONE (08:33)
[2022-02-12] MEDS ORDERED: CEFAZOLIN SODIUM 1000MG/VIAL ONE (08:33)
[2022-02-12] MEDS: INSULIN GLARGINE 100 UNITS/ML SUBCUT SCH ×2 (10:00→21:23)
[2022-02-12] MEDS ORDERED: NEOSTIGMINE METHYLSULFATE 1MG/ML 10 ML VIAL ONE (10:04)
[2022-02-12] MEDS ORDERED: GLYCOPYRROLATE 0.2 MG/ML 2ML VIAL ONE ×2 (10:04→10:05)
[2022-02-12] MEDS: NICARDIPINE 100 MG in SODIUM CHLORIDE 0.9% 60 ML IV PRN ×2 (11:35→20:08)
[2022-02-12] MEDS: DEXT 5%/LACTATED RINGERS 1,000 ML IV SCH (11:36)
[2022-02-12] MEDS: VANCOMYCIN 1G PREMIX 200 ML IV SCH (13:44)
[2022-02-12] MEDS ORDERED: VANCOMYCIN 1.25GM PMX (XELLIA) 250 ML IV SCH (15:00)
[2022-02-12] MEDS: CEFTRIAXONE 1,000 MG in DEXTROSE 5% WATER 50 ML IV SCH (15:26)
[2022-02-12] MEDS: MORPHINE SULFATE 4 MG/ML CPJ (NOT FOR IM USE) IV PRN ×2 (18:17→21:22)
[2022-02-12] MEDS ORDERED: INSULIN LISPRO 100 UNITS/ML SUBCUT NR (21:00)
[2022-02-13] VITALS (89 sets, daily range): BP systolic 64–167; BP diastolic 46–165
[2022-02-13] MEDS: MORPHINE SULFATE 4 MG/ML CPJ (NOT FOR IM USE) IV PRN ×3 (02:40→14:37)
[2022-02-13] MEDS: DEXT 5%/LACTATED RINGERS 1,000 ML IV SCH ×3 (02:44→10:51)
[2022-02-13] MEDS: HYDROCODONE/ACETAMINOPHEN 10/325MG TABLET PO SCH ×6 (03:51→20:18)
[2022-02-13 05:34] LABS: BASOPHILS % 0.4 % (0.0-2.0); EOSINOPHILS % 0.1 % (0.0-5.0); HEMATOCRIT. 31.4 % (42.0-52.0); HEMOGLOBIN. 10.4 g/dL (14.0-18.0); MEAN CORPUSCULAR HEMOGLOBIN 27.1 pg (28.0-32.0); MEAN CORPUSCULAR VOLUME 81.7 fL (80.0-94.0); MEAN PLATELET VOLUME 8.5 fl (7.4-10.4); MONOCYTES % 12.6 % (2.0-8.0); NEUTROPHILS % 77.9 % (40.0-76.0); PLATELET 272 x1000/uL (130-400); RED BLOOD CELL COUNT 3.85 mill/uL (4.7-6.1); RED CELL DISTRIBUTION WIDTH 13.7 % (11.6-14.6)
[2022-02-13] MEDS: BLOOD SUGAR DIAGNOSTIC STRIP TEST SCH ×4 (05:53→21:13)
[2022-02-13] MEDS: VANCOMYCIN 1G PREMIX 200 ML IV SCH (05:53)
[2022-02-13] MEDS: INSULIN LISPRO 100 UNITS/ML SUBCUT SCH ×7 (06:01→21:18)
[2022-02-13] MEDS: NICARDIPINE 100 MG in SODIUM CHLORIDE 0.9% 60 ML IV PRN (09:12)
[2022-02-13] MEDS: INSULIN GLARGINE 100 UNITS/ML SUBCUT SCH ×2 (09:15→21:18)
[2022-02-13] MEDS ORDERED: CLONIDINE 0.1MG TABLET PO PRN (12:15)
[2022-02-13] MEDS ORDERED: HYDRALAZINE HCL 100MG TABLET PO NR (12:15)
[2022-02-13] MEDS: AMLODIPINE 10MG TABLET PO SCH (13:23)
[2022-02-13] MEDS: SODIUM CHLORIDE 0.9% 1,000 ML IV SCH (13:24)
[2022-02-13] MEDS: CEFTRIAXONE 1,000 MG in DEXTROSE 5% WATER 50 ML IV SCH (14:33)
[2022-02-13] MEDS: HYDRALAZINE HCL 100MG TABLET PO SCH (20:17)
[2022-02-14] VITALS (46 sets, daily range): BP systolic 99–149; BP diastolic 56–84
[2022-02-14] MEDS: VANCOMYCIN 1G PREMIX 200 ML IV SCH (00:28)
[2022-02-14] MEDS: HYDROCODONE/ACETAMINOPHEN 10/325MG TABLET PO SCH ×7 (04:16→21:30)
[2022-02-14 05:55] LABS: BASOPHILS % 0.1 % (0.0-2.0); EOSINOPHILS % 1.1 % (0.0-5.0); HEMOGLOBIN. 9.7 g/dL (14.0-18.0); LYMPHOCYTES % 15.5 % (20.0-50.0); MEAN CORPUSCULAR HEMOGLOBIN 26.8 pg (28.0-32.0); MEAN CORPUSCULAR VOLUME 80.5 fL (80.0-94.0); MEAN PLATELET VOLUME 8.3 fl (7.4-10.4); MONOCYTES % 12.4 % (2.0-8.0); NEUTROPHILS % 70.9 % (40.0-76.0); PLATELET 242 x1000/uL (130-400); RED BLOOD CELL COUNT 3.61 mill/uL (4.7-6.1); RED CELL DISTRIBUTION WIDTH 13.9 % (11.6-14.6)
[2022-02-14] MEDS: BLOOD SUGAR DIAGNOSTIC STRIP TEST SCH ×4 (06:04→21:00)
[2022-02-14] MEDS: INSULIN LISPRO 100 UNITS/ML SUBCUT SCH ×5 (06:06→21:32)
[2022-02-14] MEDS: HYDRALAZINE HCL 100MG TABLET PO SCH ×2 (08:35→21:00)
[2022-02-14] MEDS: SODIUM CHLORIDE 0.9% 1,000 ML IV SCH (08:35)
[2022-02-14] MEDS: AMLODIPINE 10MG TABLET PO SCH (08:36)
[2022-02-14] MEDS: INSULIN GLARGINE 100 UNITS/ML SUBCUT SCH ×2 (10:11→21:31)
[2022-02-14] MEDS: MORPHINE SULFATE 4 MG/ML CPJ (NOT FOR IM USE) IV PRN (11:42)
[2022-02-14] MEDS: TAMSULOSIN HCL 0.4MG SR CAPSULE PO SCH ×2 (12:30→18:10)
[2022-02-14] MEDS: FINASTERIDE 5MG TABLET PO SCH (13:47)
[2022-02-14] MEDS: CEFTRIAXONE 1,000 MG in DEXTROSE 5% WATER 50 ML IV SCH (16:10)
[2022-02-14] MEDS ORDERED: DIPHENHYDRAMINE 25MG CAPSULE PO PRN (18:15)
[2022-02-14] MEDS: RIFAMPIN 300MG CAPSULE PO SCH (21:30)
[2022-02-15] VITALS: BP 100/52
[2022-02-15 04:00] VITALS: BP 99/68
[2022-02-15] MEDS: SODIUM CHLORIDE 0.9% 1,000 ML IV SCH (04:15)
[2022-02-15] MEDS: HYDROCODONE/ACETAMINOPHEN 10/325MG TABLET PO SCH ×3 (04:30→08:44)
[2022-02-15] MEDS: INSULIN LISPRO 100 UNITS/ML SUBCUT SCH ×4 (06:27→21:00)
[2022-02-15] MEDS: BLOOD SUGAR DIAGNOSTIC STRIP TEST SCH ×4 (06:27→21:22)
[2022-02-15 06:28] LABS: HEMOGLOBIN. 8.6 g/dL (14.0-18.0); MEAN CORPUSCULAR HEMOGLOBIN 27.5 pg (28.0-32.0); MEAN CORPUSCULAR VOLUME 80.5 fL (80.0-94.0); MEAN PLATELET VOLUME 7.8 fl (7.4-10.4); PLATELET 235 x1000/uL (130-400); RED BLOOD CELL COUNT 3.11 mill/uL (4.7-6.1); RED CELL DISTRIBUTION WIDTH 13.9 % (11.6-14.6)
[2022-02-15 08:00] VITALS: BP 106/52
[2022-02-15] MEDS: FINASTERIDE 5MG TABLET PO SCH (08:43)
[2022-02-15] MEDS: AMLODIPINE 10MG TABLET PO SCH (08:43)
[2022-02-15] MEDS: TAMSULOSIN HCL 0.4MG SR CAPSULE PO SCH ×2 (08:43→17:36)
[2022-02-15] MEDS: RIFAMPIN 300MG CAPSULE PO SCH ×2 (08:43→21:30)
[2022-02-15] MEDS: HYDRALAZINE HCL 100MG TABLET PO SCH (08:44)
[2022-02-15 10:29] LABS: PLATELET ESTIMATE NORMAL
[2022-02-15] MEDS: INSULIN GLARGINE 100 UNITS/ML SUBCUT SCH ×2 (10:32→21:31)
[2022-02-15 12:00] VITALS: BP 94/54
[2022-02-15] MEDS: CEFTRIAXONE 1,000 MG in DEXTROSE 5% WATER 50 ML IV SCH (15:40)
[2022-02-15 16:00] VITALS: BP 107/56
[2022-02-15 20:00] VITALS: BP 122/66
[2022-02-15] MEDS: HYDRALAZINE HCL 25MG TABLET PO SCH (21:00)
[2022-02-16] VITALS (7 sets, daily range): BP systolic 97–183; BP diastolic 50–87
[2022-02-16] MEDS: HYDROCODONE/ACETAMINOPHEN 10/325MG TABLET PO PRN ×4 (02:36→22:46)
[2022-02-16] MEDS: SODIUM CHLORIDE 0.9% 1,000 ML IV SCH ×2 (02:40→21:00)
[2022-02-16] MEDS: INSULIN LISPRO 100 UNITS/ML SUBCUT SCH ×4 (06:15→21:00)
[2022-02-16] MEDS: BLOOD SUGAR DIAGNOSTIC STRIP TEST SCH ×4 (06:15→21:00)
[2022-02-16 06:16] LABS: BASOPHILS % 0.5 % (0.0-2.0); EOSINOPHILS % 1.8 % (0.0-5.0); HEMOGLOBIN. 8.2 g/dL (14.0-18.0); LYMPHOCYTES % 15.5 % (20.0-50.0); MEAN CORPUSCULAR HEMOGLOBIN 27.8 pg (28.0-32.0); MEAN PLATELET VOLUME 7.7 fl (7.4-10.4); MONOCYTES % 14.5 % (2.0-8.0); NEUTROPHILS % 67.7 % (40.0-76.0); PLATELET 230 x1000/uL (130-400); RED BLOOD CELL COUNT 2.96 mill/uL (4.7-6.1)
[2022-02-16 07:27] LABS: CLARITY URINE CLEAR (CLEAR); COLOR URINE YELLOW (YELLOW); KETONES URINE NEGATIVE (NEGATIVE); LEUKOCYTE ESTERASE URINE NEGATIVE (NEGATIVE); NITRITE URINE NEGATIVE (NEGATIVE); OCCULT BLOOD URINE 1+ (NEGATIVE); PROTEIN URINE 1+ (NEGATIVE); UROBILINOGEN URINE 0.2 E.U./dL (0.2-1.0)
[2022-02-16] MEDS: RIFAMPIN 300MG CAPSULE PO SCH ×2 (08:48→21:00)
[2022-02-16] MEDS: TAMSULOSIN HCL 0.4MG SR CAPSULE PO SCH ×2 (08:48→18:12)
[2022-02-16] MEDS: FINASTERIDE 5MG TABLET PO SCH (08:48)
[2022-02-16] MEDS: AMLODIPINE 10MG TABLET PO SCH (08:49)
[2022-02-16] MEDS: HYDRALAZINE HCL 25MG TABLET PO SCH ×2 (08:49→21:00)
[2022-02-16] MEDS: INSULIN GLARGINE 100 UNITS/ML SUBCUT SCH ×2 (10:37→22:00)
[2022-02-16] MEDS ORDERED: VANCOMYCIN 1G PREMIX 200 ML IV NR (14:00)
[2022-02-16] MEDS: FAMOTIDINE 20MG TABLET PO SCH (18:13)
[2022-02-16] MEDS: DOCUSATE SODIUM 250MG CAPSULE PO SCH (18:13)
[2022-02-17] MEDS: HYDROCODONE/ACETAMINOPHEN 10/325MG TABLET PO PRN (03:22)
[2022-02-17 04:00] VITALS: BP 149/69
[2022-02-17] MEDS: INSULIN LISPRO 100 UNITS/ML SUBCUT SCH ×2 (05:57→12:57)
[2022-02-17] MEDS: BLOOD SUGAR DIAGNOSTIC STRIP TEST SCH ×2 (05:57→12:53)
[2022-02-17 07:55] VITALS: BP 147/78
[2022-02-17] MEDS ORDERED: LIDOCAINE HCL 1% 10 MG/ML 10ML VIAL ONE (09:06)
[2022-02-17] MEDS: FINASTERIDE 5MG TABLET PO SCH (09:16)
[2022-02-17] MEDS: FAMOTIDINE 20MG TABLET PO SCH (09:16)
[2022-02-17] MEDS: TAMSULOSIN HCL 0.4MG SR CAPSULE PO SCH (09:16)
[2022-02-17] MEDS: AMLODIPINE 10MG TABLET PO SCH (09:16)
[2022-02-17] MEDS: DOCUSATE SODIUM 250MG CAPSULE PO SCH (09:16)
[2022-02-17] MEDS: HYDRALAZINE HCL 25MG TABLET PO SCH (09:16)
[2022-02-17] MEDS: RIFAMPIN 300MG CAPSULE PO SCH (09:16)
[2022-02-17] MEDS: INSULIN GLARGINE 100 UNITS/ML SUBCUT SCH (10:27)
[2022-02-17 11:54] VITALS: BP 150/69
[2022-02-17] MEDS ORDERED: TAMS-11 PO (13:44)
[2022-02-17] MEDS ORDERED: LANTUSUD SUBCUT (13:44)
[2022-02-17] MEDS ORDERED: HYDR-4009 PO (13:44)
[2022-02-17] MEDS ORDERED: DOCU250C14 PO (13:44)
[2022-02-17] MEDS ORDERED: HYDR-4135 MT (13:44)
[2022-02-17] MEDS ORDERED: FINA5TAB11 PO (13:44)
[2022-02-17] MEDS ORDERED: AMLO10TA80 PO (13:44)
[2022-02-17 14:02] VITALS: BP 150/69
== END 2022-02-17 15:10 | disposition home health service (06) | DRG 304 ==
LOC: ER 08:35 → EDBEDREQSVC 12:31 → 6EST 21:20 → EDBEDREQ 21:25 → EDBEDREQTM 21:25 → EDBEDREQSVC 21:25 → MICUNO 02-12 12:11 → 8WST 02-14 13:27
PROVIDERS: ADMIT Internal Medicine; ATTEND Internal Medicine
PROC: 0SG3071 Fusion of Lumbosacral Joint with Autologous Tissue Substitute, Posterior Approach, Posterior Column, Open Approach (ICD-10-PCS; principal; 2022-02-11)
PROC: 01NR0ZZ Release Sacral Nerve, Open Approach (ICD-10-PCS; 2022-02-11)
PROC: 01NB0ZZ Release Lumbar Nerve, Open Approach (ICD-10-PCS; 2022-02-11)
PROC: 02HV33Z Insertion of Infusion Device into Superior Vena Cava, Percutaneous Approach (ICD-10-PCS; 2022-02-17)
PROC: B5181ZA Fluoroscopy of Superior Vena Cava using Low Osmolar Contrast, Guidance (ICD-10-PCS; 2022-02-17)
PROC: B548ZZA Ultrasonography of Superior Vena Cava, Guidance (ICD-10-PCS; 2022-02-17)
DX: M48.07 Spinal stenosis, lumbosacral region (principal); N17.0 Acute kidney failure with tubular necrosis; S14.103A Unspecified injury at C3 level of cervical spinal cord, initial encounter; G06.1 Intraspinal abscess and granuloma; G82.50 Quadriplegia, unspecified; E87.1 Hypo-osmolality and hyponatremia; M46.22 Osteomyelitis of vertebra, cervical region; M47.12 Other spondylosis with myelopathy, cervical region; I48.91 Unspecified atrial fibrillation; M46.26 Osteomyelitis of vertebra, lumbar region; M48.02 Spinal stenosis, cervical region; S14.109A Unspecified injury at unspecified level of cervical spinal cord, initial encounter; S91.301A Unspecified open wound, right foot, initial encounter; S91.302A Unspecified open wound, left foot, initial encounter; E11.65 Type 2 diabetes mellitus with hyperglycemia; E87.5 Hyperkalemia; E66.01 Morbid (severe) obesity due to excess calories; Z68.37 Body mass index [BMI] 37.0-37.9, adult; E86.9 Volume depletion, unspecified; I12.9 Hypertensive chronic kidney disease with stage 1 through stage 4 chronic kidney disease, or unspecified chronic kidney disease; N18.9 Chronic kidney disease, unspecified; E11.22 Type 2 diabetes mellitus with diabetic chronic kidney disease; E78.00 Pure hypercholesterolemia, unspecified; E78.5 Hyperlipidemia, unspecified; M46.47 Discitis, unspecified, lumbosacral region; E11.69 Type 2 diabetes mellitus with other specified complication; G89.29 Other chronic pain; N40.0 Benign prostatic hyperplasia without lower urinary tract symptoms; J45.909 Unspecified asthma, uncomplicated; M48.57XA Collapsed vertebra, not elsewhere classified, lumbosacral region, initial encounter for fracture; Z83.3 Family history of diabetes mellitus; Z91.81 History of falling; Z96.649 Presence of unspecified artificial hip joint; W18.30XA Fall on same level, unspecified, initial encounter; X58.XXXA Exposure to other specified factors, initial encounter; Y93.89 Activity, other specified; Y92.89 Other specified places as the place of occurrence of the external cause; Y99.8 Other external cause status
CPT/HCPCS: 36415; 36573; 36600; 71045; 72100; 72131; 72141; 72142; 72146; 72148; 72192; 76000; 80048; 80053; 80202; 81003; 82010; 82375; 82550; 82805; 82947; 82962; 83735; 83880; 84100; 84145; 84484; 85025; 85651; 86850; 86900; 87070; 87075; 87077; 87186; 87426; 88304; 88311; 93005; 93306; 93923; 97162; 97166; 97530; 99285; A9577; C1725; C1769; J0690; J0696; J1100; J1170; J1580; J1815; J2250; J2270; J2370; J2704; J2710; J3010; J3370; J3490; J7030; J7050; J7060; J7121; A4315; C1713; C1762

== ENCOUNTER 2024-10-05 13:54 | Inpatient (IN) | payer MEDICAID ==
[~2024-10-05] VITALS: Ht 177.8 cm; Wt 120.0 kg
[2024-10-05] VITALS (36 sets, daily range): BP systolic 82–150; BP diastolic 62–107; PULSE 89–114; RESP 10–23; TEMP 36.5292–37.3; O2SAT 98–100
[~2024-10-05 13:54] MED LIST changes: +AMLO10TA80 PO; +APIX5TAB MT; -CEFP200T13 MT; +DOCU250C14 PO; +FINA5TAB11 PO; +HYDR-4009 PO; +HYDR50TA40 MT; +LANTUSUD SUBCUT; +TAMS-54 PO
[2024-10-05] MEDS: FENTANYL 2500MCG/250ML PMX 250 ML IV SCH (14:15)
[2024-10-05] MEDS: PROPOFOL 10MG/ML 100ML 100 ML IV PRN (14:29)
[2024-10-05] MEDS: NOREPINEPHRINE 8MG/250ML PMX 250 ML IV PRN (14:31)
[2024-10-05] MEDS: ROCURONIUM BROMIDE 10MG/ML VIAL 5ML IV ONE (14:32)
[2024-10-05 14:49] LABS: BASOPHILS % 0.3 % (0.0-2.0); EOSINOPHILS % 0.1 % (0.0-5.0); HEMATOCRIT. 27.5 % (42.0-52.0); HEMOGLOBIN. 9.0 g/dL (14.0-18.0); LYMPHOCYTES % 13.1 % (20.0-50.0); MEAN PLATELET VOLUME 7.7 fl (7.4-10.4); MONOCYTES % 7.0 % (2.0-8.0); NEUTROPHILS % 79.5 % (40.0-76.0); PLATELET 354 x1000/uL (130-400); RED BLOOD CELL COUNT 3.29 mill/uL (4.7-6.1); RED CELL DISTRIBUTION WIDTH 16.2 % (11.6-14.6)
[2024-10-05 14:56] LABS: INR 1.1
[2024-10-05 15:08] LABS: ETHANOL BLOOD < 10 mg/dL (<10); TROPONIN I HIGH SENSITIVITY 7 ng/L (3.0-53); UREA NITROGEN BLOOD 62 mg/dL (9-23)
[2024-10-05 15:09] LABS: BILIRUBIN DIRECT 0.2 mg/dL (<=3.0)
[2024-10-05 15:10] LABS: BILIRUBIN TOTAL 0.5 mg/dL (0.1-1.0); PROTEIN TOTAL 6.9 g/dL (6.0-8.3)
[2024-10-05 15:12] LABS: ASPARTATE AMINOTRANSFERASE < 8 IU/L (<34); CREATININE 3.2 mg/dL (0.6-1.3)
[2024-10-05] MEDS ORDERED: VANCOMYCIN 1G PREMIX 200 ML IV ONE (15:45)
[2024-10-05] MEDS: PIPERACILLIN/TAZO 3.375G/50ML 50 ML IV ONE (16:11)
[2024-10-05] MEDS: SODIUM CHLORIDE 0.9% (SEPSIS BOLUS) IV ONE (16:11)
[2024-10-05] MEDS ORDERED: ACETAMINOPHEN 650MG SUPP PR PRN (16:15)
[2024-10-05] MEDS ORDERED: SODIUM BICARBONATE 8.4% 50MEQ/50ML VIAL IV NR (16:15)
[2024-10-05] MEDS: DEXTROSE 50% WATER 50ML SYRINGE IV NR (16:36)
[2024-10-05] MEDS: CALCIUM GLUCONATE 100MG/ML 10ML VIAL IV NR (16:36)
[2024-10-05 16:37] LABS: COLOR URINE YELLOW (YELLOW); GLUCOSE URINE 3+ (NEGATIVE); KETONES URINE TRACE (NEGATIVE); LEUKOCYTE ESTERASE URINE NEGATIVE (NEGATIVE); NITRITE URINE NEGATIVE (NEGATIVE); OCCULT BLOOD URINE 2+ (NEGATIVE); PH URINE 5.0 (4.5-8.0); PROTEIN URINE 1+ (NEGATIVE); SPECIFIC GRAVITY URINE 1.018 (1.005-1.030); UROBILINOGEN URINE 0.2 E.U./dL (0.2-1.0)
[2024-10-05] MEDS: INSULIN REGULAR (HUMULIN R) 1000UNITS/10ML VIAL IV NR (16:37)
[2024-10-05] MEDS: SODIUM CHLORIDE 0.9% 1,000 ML IV NR (16:46)
[2024-10-05 16:50] LABS: *AMPHETAMINES SCREEN URINE NEGATIVE (NEGATIVE); *BARBITURATES SCREEN URINE NEGATIVE (NEGATIVE); *BENZODIAZEPINES SCREEN URINE NEGATIVE (NEGATIVE); *COCAINE SCREEN URINE NEGATIVE (NEGATIVE); CANNABINOID URINE SCREEN NEGATIVE (NEGATIVE); ECSTASY MDMA SCREEN URINE NEGATIVE (NEGATIVE); METHADONE URINE SCREEN NEGATIVE (NEGATIVE); OPIATES URINE SCREEN NEGATIVE (NEGATIVE); PHENCYCLIDINE URINE SCREEN NEGATIVE (NEGATIVE)
[2024-10-05 16:53] LABS: TROPONIN I HIGH SENSITIVITY 51 ng/L (3.0-53)
[2024-10-05] MEDS: SODIUM BICARBONATE 8.4% 50MEQ/50ML VIAL IV NR (16:55)
[2024-10-05 17:11] LABS: CLARITY URINE SL HAZY (CLEAR)
[2024-10-05 17:14] LABS: BACTERIA URINE TRACE; SQUAMOUS EPITHELIAL CELL URINE RARE /lpf (RARE/1+); YEAST URINE 1+
[2024-10-05 17:15] LABS: HYALINE CASTS URINE 0-5 /lpf; MUCUS URINE TRACE /lpf (NONE/TRACE)
[2024-10-05 18:15] LABS: BG BASE EXCESS -13.2 mmol/L (-2.0-3.0); BG CARBOXYHEMOGLOBIN 0.4 % (0.5-1.5); BG DEOXYHEMOGLOBIN 1.3 % (0.0-5.0); BG FRACTION INSPIRED OXYGEN 100; BG HCO3 ACT 12.5 mmol/L (21.0-28.0); BG METHEMOGLOBIN 0.2 % (0.5-1.5); BG OXYGEN SATURATION 98.7 % (94.0-98.0); BG OXYHEMOGLOBIN 98.1 % (94.0-98.0); BG PCO2 28.4 mmHg (35.0-48.0); BG PEEP (cmH2O) 5.0 cmH2O; BG PH 7.261 (7.350-7.450); BG PO2 140.2 mmHg (83.0-108.0); BG SAMPLE SITE RIGHT RADIAL; BG TIDAL VOLUME(mL) 550.0 mL; BG TOTAL HEMOGLOBIN 11.1 g/dL (13.5-17.5); BG VENT MODE VENT - AC; BG VENT RATE 14.0 set
[2024-10-05] MEDS: BLOOD SUGAR DIAGNOSTIC STRIP TEST SCH (18:47)
[2024-10-05] MEDS: SODIUM BICARBONATE 8.4% 50MEQ/50ML SYR IV NR (18:52)
[2024-10-05] MEDS: INSULIN LISPRO 100 UNITS/ML SUBCUT SCH (18:53)
[2024-10-05] MEDS ORDERED: PROPOFOL 10MG/ML 100ML 100 ML IV PRN (19:00)
[2024-10-05 19:51] LABS: TROPONIN I HIGH SENSITIVITY 456 ng/L (3.0-53)
[2024-10-05] MEDS: IPRATROPIUM/ALBUTEROL 0.5-3(2.5)MG/3ML NEB HHN SCH (20:15)
[2024-10-05 21:06] LABS: BG BASE EXCESS -6.9 mmol/L (-2.0-3.0); BG CARBOXYHEMOGLOBIN 0.3 % (0.5-1.5); BG DEOXYHEMOGLOBIN 1.3 % (0.0-5.0); BG FRACTION INSPIRED OXYGEN 40; BG HCO3 ACT 17.1 mmol/L (21.0-28.0); BG METHEMOGLOBIN 0.3 % (0.5-1.5); BG OXYGEN SATURATION 98.7 % (94.0-98.0); BG OXYHEMOGLOBIN 98.1 % (94.0-98.0); BG PCO2 29.3 mmHg (35.0-48.0); BG PEEP (cmH2O) 5.0 cmH2O; BG PH 7.383 (7.350-7.450); BG PO2 145.5 mmHg (83.0-108.0); BG SAMPLE SITE RIGHT RADIAL; BG TIDAL VOLUME(mL) 500.0 mL; BG TOTAL HEMOGLOBIN 10.6 g/dL (13.5-17.5); BG VENT MODE VENT - AC; BG VENT RATE 16.0 set
[2024-10-05] MEDS: VANCOMYCIN 1.5GM PMX (XELLIA) 300 ML IV SCH (21:30)
[2024-10-05] MEDS: ENOXAPARIN 30MG/0.3ML SYR SUBCUT SCH (21:31)
[2024-10-05] MEDS: PIPERACILLIN/TAZO 3.375G/50ML 50 ML IV SCH (21:32)
[2024-10-05] MEDS: IOHEXOL-350 100 ML BOTTLE ONE (23:28)
[2024-10-05 23:30] LABS: CREATININE 3.0 mg/dL (0.6-1.3); UREA NITROGEN BLOOD 54.0 mg/dL (9-23)
[2024-10-06] VITALS (115 sets, daily range): BP systolic 62–168; BP diastolic 41–114; PULSE 70–99; RESP 0–33; TEMP 36.4–37.5; O2SAT 85–100
[2024-10-06] MEDS: SODIUM BICARBONATE 8.4% 50MEQ/50ML SYR IV SCH ×2 (00:49→08:34)
[2024-10-06] MEDS: CALCIUM GLUCONATE 100MG/ML 10ML VIAL IV SCH (00:49)
[2024-10-06] MEDS: DEXTROSE 50% WATER 50ML SYRINGE IV PRN (00:50)
[2024-10-06] MEDS: SODIUM ZIRCONIUM CYCLOSILICATE 10GM/PACKET PO SCH (00:50)
[2024-10-06] MEDS: INSULIN REGULAR (HUMULIN R) 1000UNITS/10ML VIAL IV SCH ×2 (00:50→08:48)
[2024-10-06] MEDS: DEXTROSE 50% WATER 50ML SYRINGE IV SCH ×2 (01:00→08:33)
[2024-10-06] MEDS: NOREPINEPHRINE 8MG/250ML PMX 250 ML IV PRN (03:22)
[2024-10-06 05:17] LABS: HEMATOCRIT. 27.5 % (42.0-52.0); HEMOGLOBIN. 9.3 g/dL (14.0-18.0); MEAN PLATELET VOLUME 7.7 fl (7.4-10.4); PLATELET 343 x1000/uL (130-400); RED BLOOD CELL COUNT 3.41 mill/uL (4.7-6.1); RED CELL DISTRIBUTION WIDTH 16.3 % (11.6-14.6)
[2024-10-06 05:36] LABS: CREATININE 2.7 mg/dL (0.6-1.3)
[2024-10-06 05:37] LABS: TRIGLYCERIDE 87 mg/dL (0-150); TROPONIN I HIGH SENSITIVITY 1131 ng/L (3.0-53); UREA NITROGEN BLOOD 59 mg/dL (9-23)
[2024-10-06] MEDS ORDERED: CALCIUM GLUCONATE 100MG/ML 10ML VIAL IV ONE (07:45)
[2024-10-06] MEDS ORDERED: ACETAMINOPHEN 325MG TABLET PO PRN (08:00)
[2024-10-06] MEDS ORDERED: DOCUSATE SODIUM 100MG CAPSULE PO PRN (08:00)
[2024-10-06] MEDS ORDERED: ONDANSETRON HCL 4MG/2ML INJ IV PRN (08:00)
[2024-10-06] MEDS: ACETAMINOPHEN 325MG TABLET PO PRN (08:33)
[2024-10-06] MEDS: PANTOPRAZOLE SODIUM 40 MG/VIAL IV SCH (08:34)
[2024-10-06] MEDS: FUROSEMIDE 40MG/4ML VIAL IV SCH (08:34)
[2024-10-06] MEDS: ASPIRIN 81MG TABLET PO SCH (08:37)
[2024-10-06] MEDS: CALCIUM CHLORIDE 1GM/10ML SYR IV SCH (08:56)
[2024-10-06] MEDS: ALBUTEROL (0.5%) 2.5MG/0.5ML NEB HHN SCH (09:00)
[2024-10-06 10:59] LABS: BG BASE EXCESS -6.6 mmol/L (-2.0-3.0); BG FRACTION INSPIRED OXYGEN 40; BG HCO3 ACT 17.8 mmol/L (21.0-28.0); BG PCO2 32.5 mmHg (35.0-48.0); BG PEEP (cmH2O) 5.0 cmH2O; BG PH 7.356 (7.350-7.450); BG PO2 102.2 mmHg (83.0-108.0); BG SAMPLE SITE RIGHT BRACHIAL; BG TIDAL VOLUME(mL) 500.0 mL; BG TOTAL HEMOGLOBIN 0.0 g/dL (13.5-17.5); BG VENT MODE VENT - AC; BG VENT RATE 16.0 set
[2024-10-06] MEDS: LIDOCAINE HCL 1% 10 MG/ML 10ML VIAL ONE (12:08)
[2024-10-06] MEDS ORDERED: AZITHROMYCIN 500MG/250ML 250 ML IV SCH (13:00)
[2024-10-06] MEDS: AZITHROMYCIN 500MG/250ML 250 ML IV SCH (13:40)
[2024-10-06 14:09] LABS: HEPATITIS A AB IGM NEGATIVE (Negative)
[2024-10-06 14:10] LABS: HEPATITIS B CORE AB IGM NEGATIVE (Negative)
[2024-10-06 14:11] LABS: HEPATITIS C AB NON REACTIVE (Neg) (Negative)
[2024-10-06] MEDS ORDERED: SODIUM BICARBONATE 8.4% 50MEQ/50ML SYR IV NR (16:00)
[2024-10-06 16:10] LABS: BAND% 7.0 % (1.0-6.0); LYMPHOCYTES % MANUAL 5.0 % (20.0-50.0); MONOCYTES % MANUAL 4.0 % (2.0-8.0); NEUTROPHILS % MANUAL 84.0 % (45.0-75.0); PLATELET ESTIMATE NORMAL
[2024-10-06] MEDS: VANCOMYCIN 500MG/100ML IV SCH (17:05)
[2024-10-06] MEDS: ATORVASTATIN CALCIUM 40MG TABLET PO SCH (20:35)
[2024-10-07] VITALS (103 sets, daily range): BP systolic 65–132; BP diastolic 44–95; PULSE 80–95; RESP 0–29; TEMP 37.3; O2SAT 99–100
[2024-10-07 06:09] LABS: HEMATOCRIT. 30.7 % (42.0-52.0); HEMOGLOBIN. 10.1 g/dL (14.0-18.0); MEAN PLATELET VOLUME 8.0 fl (7.4-10.4); PLATELET 404 x1000/uL (130-400); RED BLOOD CELL COUNT 3.78 mill/uL (4.7-6.1); RED CELL DISTRIBUTION WIDTH 16.7 % (11.6-14.6)
[2024-10-07 06:14] LABS: INR 1.2
[2024-10-07 06:32] LABS: CREATININE 2.0 mg/dL (0.6-1.3); FOLIC ACID (FOLATE) SERUM 1.62 ng/mL (>5.38); TRIGLYCERIDE 104 mg/dL (0-150); UREA NITROGEN BLOOD 38 mg/dL (9-23)
[2024-10-07 06:33] LABS: LDL CHOLESTEROL 71 mg/dL (5-100); VITAMIN B12 SERUM 555 pg/mL (211-911)
[2024-10-07 06:34] LABS: ASPARTATE AMINOTRANSFERASE 28 IU/L (<34); BILIRUBIN DIRECT 0.4 mg/dL (<=3.0); PHOSPHORUS 4.5 mg/dL (2.5-4.9)
[2024-10-07 06:35] LABS: BILIRUBIN TOTAL 0.8 mg/dL (0.1-1.0); PROTEIN TOTAL 6.3 g/dL (6.0-8.3)
[2024-10-07 09:56] LABS: BG BASE EXCESS 0.3 mmol/L (-2.0-3.0); BG CARBOXYHEMOGLOBIN 0.0 % (0.5-1.5); BG DEOXYHEMOGLOBIN 0.8 % (0.0-5.0); BG FRACTION INSPIRED OXYGEN 40; BG HCO3 ACT 23.6 mmol/L (21.0-28.0); BG METHEMOGLOBIN 0.3 % (0.5-1.5); BG OXYGEN SATURATION 99.2 % (94.0-98.0); BG OXYHEMOGLOBIN 98.9 % (94.0-98.0); BG PCO2 33.5 mmHg (35.0-48.0); BG PEEP (cmH2O) 5.0 cmH2O; BG PH 7.466 (7.350-7.450); BG PO2 145.0 mmHg (83.0-108.0); BG SAMPLE SITE RIGHT BRACHIAL; BG TIDAL VOLUME(mL) 500.0 mL; BG TOTAL HEMOGLOBIN 10.4 g/dL (13.5-17.5); BG TOTAL RESPIRATORY RATE 22 b/min; BG VENT MODE VENT - AC; BG VENT RATE 16.0 set
[2024-10-07] MEDS: FOLIC ACID 1 MG in SODIUM CHLORIDE 0.9% 500 ML IV SCH (11:39)
[2024-10-07 12:54] LABS: BAND% 4.0 % (1.0-6.0); LYMPHOCYTES % MANUAL 7.0 % (20.0-50.0); NEUTROPHILS % MANUAL 89.0 % (45.0-75.0)
[2024-10-07 12:55] LABS: PLATELET ESTIMATE SLIGHTLY INCREASED
[2024-10-07] MEDS ORDERED: DOCUSATE SODIUM SUGAR FREE 100MG/10ML UDC NG PRN (13:59)
[2024-10-07] MEDS: ACETAMINOPHEN 650MG/20.3ML UDC NG PRN (15:53)
[2024-10-07] MEDS: ENOXAPARIN 40MG/0.4ML SYR SUBCUT SCH (15:54)
[2024-10-07] MEDS: VANCOMYCIN 1GM/200ML PMX (BAXTER) IV SCH (15:54)
[2024-10-07] MEDS: ATORVASTATIN CALCIUM 40MG TABLET NG SCH (21:50)
[2024-10-08] VITALS (105 sets, daily range): BP systolic 66–133; BP diastolic 45–88; PULSE 81–93; RESP 6–27; TEMP 36.4–37.1; O2SAT 94–100
[2024-10-08 05:53] LABS: PLATELET 369 x1000/uL (130-400); RED BLOOD CELL COUNT 3.54 mill/uL (4.7-6.1); RED CELL DISTRIBUTION WIDTH 16.2 % (11.6-14.6)
[2024-10-08 06:03] LABS: CREATININE 2.3 mg/dL (0.6-1.3)
[2024-10-08 06:04] LABS: UREA NITROGEN BLOOD 41.0 mg/dL (9-23)
[2024-10-08] MEDS: FERROUS SULFATE 325MG TABLET PO SCH (06:09)
[2024-10-08 09:30] LABS: BG BASE EXCESS 2.3 mmol/L (-2.0-3.0); BG CARBOXYHEMOGLOBIN 0.1 % (0.5-1.5); BG DEOXYHEMOGLOBIN 0.7 % (0.0-5.0); BG FRACTION INSPIRED OXYGEN 40; BG HCO3 ACT 26.0 mmol/L (21.0-28.0); BG METHEMOGLOBIN 0.3 % (0.5-1.5); BG OXYGEN SATURATION 99.3 % (94.0-98.0); BG OXYHEMOGLOBIN 98.9 % (94.0-98.0); BG PCO2 36.8 mmHg (35.0-48.0); BG PEEP (cmH2O) 5.0 cmH2O; BG PH 7.467 (7.350-7.450); BG PO2 161.7 mmHg (83.0-108.0); BG SAMPLE SITE LEFT BRACHIAL; BG TIDAL VOLUME(mL) 500.0 mL; BG TOTAL HEMOGLOBIN 9.8 g/dL (13.5-17.5); BG TOTAL RESPIRATORY RATE 17 b/min; BG VENT MODE VENT - AC; BG VENT RATE 16.0 set
[2024-10-08] MEDS: FOLIC ACID/VITAMIN B COMP W-C TABLET NG SCH (09:36)
[2024-10-08] MEDS: FOLIC ACID 1MG TABLET PO SCH (09:36)
[2024-10-08] MEDS: ASPIRIN 81MG TABLET NG SCH (09:36)
[2024-10-09] VITALS (99 sets, daily range): BP systolic 85–141; BP diastolic 61–116; PULSE 86–98; RESP 8–21; TEMP 36.8–37.4; O2SAT 95–100
[2024-10-09 06:41] LABS: HEMATOCRIT. 28.4 % (42.0-52.0); HEMOGLOBIN. 9.4 g/dL (14.0-18.0); MEAN PLATELET VOLUME 8.2 fl (7.4-10.4); PLATELET 367 x1000/uL (130-400); RED BLOOD CELL COUNT 3.42 mill/uL (4.7-6.1); RED CELL DISTRIBUTION WIDTH 16.1 % (11.6-14.6)
[2024-10-09 07:06] LABS: CREATININE 2.5 mg/dL (0.6-1.3); UREA NITROGEN BLOOD 44.0 mg/dL (9-23)
[2024-10-09 11:21] LABS: BG BASE EXCESS -1.3 mmol/L (-2.0-3.0); BG CARBOXYHEMOGLOBIN 0.1 % (0.5-1.5); BG DEOXYHEMOGLOBIN 0.9 % (0.0-5.0); BG FRACTION INSPIRED OXYGEN 40; BG HCO3 ACT 22.9 mmol/L (21.0-28.0); BG METHEMOGLOBIN 0.1 % (0.5-1.5); BG OXYGEN SATURATION 99.1 % (94.0-98.0); BG OXYHEMOGLOBIN 98.9 % (94.0-98.0); BG PCO2 36.3 mmHg (35.0-48.0); BG PEEP (cmH2O) 5.0 cmH2O; BG PH 7.418 (7.350-7.450); BG PO2 162.5 mmHg (83.0-108.0); BG SAMPLE SITE LEFT RADIAL; BG TIDAL VOLUME(mL) 500.0 mL; BG TOTAL HEMOGLOBIN 9.4 g/dL (13.5-17.5); BG VENT MODE VENT - SIMV; BG VENT RATE 16.0 set
[2024-10-09 15:11] LABS: EOSINOPHILS % MANUAL 1.0 % (0.0-5.0); LYMPHOCYTES % MANUAL 12.0 % (20.0-50.0); MONOCYTES % MANUAL 9.0 % (2.0-8.0); NEUTROPHILS % MANUAL 78.0 % (45.0-75.0); PLATELET ESTIMATE NORMAL
[2024-10-09 15:37] LABS: BG BASE EXCESS -0.1 mmol/L (-2.0-3.0); BG CARBOXYHEMOGLOBIN 0.5 % (0.5-1.5); BG DEOXYHEMOGLOBIN 0.8 % (0.0-5.0); BG FRACTION INSPIRED OXYGEN 40; BG HCO3 ACT 23.4 mmol/L (21.0-28.0); BG METHEMOGLOBIN 0.0 % (0.5-1.5); BG OXYGEN SATURATION 99.2 % (94.0-98.0); BG OXYHEMOGLOBIN 98.7 % (94.0-98.0); BG PCO2 33.7 mmHg (35.0-48.0); BG PEEP (cmH2O) 5.0 cmH2O; BG PH 7.460 (7.350-7.450); BG PO2 147.0 mmHg (83.0-108.0); BG SAMPLE SITE RIGHT BRACHIAL; BG TOTAL HEMOGLOBIN 9.2 g/dL (13.5-17.5); BG VENT MODE VENT - CPAP
[2024-10-09] MEDS: FAMOTIDINE 20MG/2ML VIAL IV SCH (22:14)
[2024-10-10] VITALS (98 sets, daily range): BP systolic 93–145; BP diastolic 62–99; PULSE 52–98; RESP 0–30; TEMP 36.6–37.4; O2SAT 90–100
[2024-10-10 06:18] LABS: PLATELET 336 x1000/uL (130-400); RED BLOOD CELL COUNT 3.17 mill/uL (4.7-6.1); RED CELL DISTRIBUTION WIDTH 16.2 % (11.6-14.6)
[2024-10-10 07:31] LABS: CREATININE 2.5 mg/dL (0.6-1.3); UREA NITROGEN BLOOD 46 mg/dL (9-23)
[2024-10-10 07:33] LABS: PHOSPHORUS 2.8 mg/dL (2.5-4.9)
[2024-10-10 08:35] LABS: BG BASE EXCESS 1.9 mmol/L (-2.0-3.0); BG CARBOXYHEMOGLOBIN 0.3 % (0.5-1.5); BG DEOXYHEMOGLOBIN 0.8 % (0.0-5.0); BG FRACTION INSPIRED OXYGEN 40; BG HCO3 ACT 26.3 mmol/L (21.0-28.0); BG METHEMOGLOBIN 0.3 % (0.5-1.5); BG OXYGEN SATURATION 99.2 % (94.0-98.0); BG OXYHEMOGLOBIN 98.6 % (94.0-98.0); BG PCO2 40.7 mmHg (35.0-48.0); BG PEEP (cmH2O) 5.0 cmH2O; BG PH 7.429 (7.350-7.450); BG PO2 163.4 mmHg (83.0-108.0); BG SAMPLE SITE LEFT BRACHIAL; BG TIDAL VOLUME(mL) 500.0 mL; BG TOTAL HEMOGLOBIN 9.9 g/dL (13.5-17.5); BG VENT MODE VENT - SIMV; BG VENT RATE 16.0 set
[2024-10-10] MEDS: VANCOMYCIN 1.25GM/250ML IV SCH (09:07)
[2024-10-11] VITALS (74 sets, daily range): BP systolic 89–159; BP diastolic 66–94; PULSE 85–100; RESP 0–19; TEMP 36.7–37; O2SAT 94–100
[2024-10-11 05:38] LABS: HEMATOCRIT. 26.6 % (42.0-52.0); HEMOGLOBIN. 8.7 g/dL (14.0-18.0); MEAN PLATELET VOLUME 8.1 fl (7.4-10.4); PLATELET 374 x1000/uL (130-400); RED BLOOD CELL COUNT 3.22 mill/uL (4.7-6.1); RED CELL DISTRIBUTION WIDTH 16.4 % (11.6-14.6)
[2024-10-11 05:55] LABS: CREATININE 2.2 mg/dL (0.6-1.3); UREA NITROGEN BLOOD 45.0 mg/dL (9-23)
[2024-10-11] MEDS: FERROUS SULFATE 300MG/5ML UDC PO SCH (06:31)
[2024-10-11] MEDS: POTASSIUM CHLORIDE 20MEQ/PACKET PO NR (07:10)
[2024-10-11] MEDS: INSULIN GLARGINE 100 UNITS/ML SUBCUT SCH (11:08)
[2024-10-11 11:27] LABS: BG BASE EXCESS 4.0 mmol/L (-2.0-3.0); BG CARBOXYHEMOGLOBIN 0.3 % (0.5-1.5); BG DEOXYHEMOGLOBIN 0.8 % (0.0-5.0); BG FRACTION INSPIRED OXYGEN 40; BG HCO3 ACT 28.1 mmol/L (21.0-28.0); BG METHEMOGLOBIN 0.2 % (0.5-1.5); BG OXYGEN SATURATION 99.2 % (94.0-98.0); BG OXYHEMOGLOBIN 98.7 % (94.0-98.0); BG PCO2 40.2 mmHg (35.0-48.0); BG PEEP (cmH2O) 5.0 cmH2O; BG PH 7.462 (7.350-7.450); BG PO2 179.9 mmHg (83.0-108.0); BG SAMPLE SITE LEFT RADIAL; BG TOTAL HEMOGLOBIN 13.0 g/dL (13.5-17.5); BG VENT MODE VENT - CPAP
[2024-10-11] MEDS: POTASSIUM CHLORIDE 20MEQ/PACKET PO SCH (11:30)
[2024-10-11] MEDS: IPRATROPIUM/ALBUTEROL 0.5-3(2.5)MG/3ML NEB HHN PRN (12:13)
[2024-10-12 07:28] LABS: CREATININE 2.2 mg/dL (0.6-1.3); UREA NITROGEN BLOOD 40 mg/dL (9-23)
[2024-10-12 07:30] LABS: ASPARTATE AMINOTRANSFERASE 14 IU/L (<34)
[2024-10-12 07:31] LABS: BILIRUBIN DIRECT 0.2 mg/dL (<=3.0); BILIRUBIN TOTAL 0.5 mg/dL (0.1-1.0); PHOSPHORUS 2.0 mg/dL (2.5-4.9); PROTEIN TOTAL 6.7 g/dL (6.0-8.3)
[2024-10-12 07:39] LABS: HEMATOCRIT. 30.7 % (42.0-52.0); HEMOGLOBIN. 10.0 g/dL (14.0-18.0); MEAN PLATELET VOLUME 7.9 fl (7.4-10.4); PLATELET 416 x1000/uL (130-400); RED BLOOD CELL COUNT 3.69 mill/uL (4.7-6.1); RED CELL DISTRIBUTION WIDTH 16.4 % (11.6-14.6)
[2024-10-12 08:00] VITALS: BP 86/55; PULSE 88; RESP 18; TEMP 36.7; O2SAT 97
[2024-10-12 12:00] VITALS: BP 85/54; PULSE 95; RESP 18; TEMP 36.5; O2SAT 98
[2024-10-12 14:02] LABS: BAND% 4.0 % (1.0-6.0); EOSINOPHILS % MANUAL 3.0 % (0.0-5.0); LYMPHOCYTES % MANUAL 15.0 % (20.0-50.0); MONOCYTES % MANUAL 7.0 % (2.0-8.0); NEUTROPHILS % MANUAL 71.0 % (45.0-75.0); PLATELET ESTIMATE INCREASED
[2024-10-12 14:40] LABS: BAND% 1.0 % (1.0-6.0); BASOPHILS % MANUAL 1.0 % (0.0-2.0); EOSINOPHILS % MANUAL 5.0 % (0.0-5.0); LYMPHOCYTES % MANUAL 17.0 % (20.0-50.0); METAMYELOCYTES % 1.0 % (0-0); MONOCYTES % MANUAL 8.0 % (2.0-8.0); NEUTROPHILS % MANUAL 67.0 % (45.0-75.0); PLATELET ESTIMATE NORMAL
[2024-10-12 16:00] VITALS: BP 85/51; PULSE 93; RESP 18; TEMP 36.5; O2SAT 98
[2024-10-12 20:00] VITALS: BP 83/53; PULSE 103; RESP 22; TEMP 36.6; O2SAT 96
[2024-10-12] MEDS: VANCOMYCIN 1GM PMX (XELLIA) 200 ML IV SCH (22:31)
[2024-10-13] VITALS (85 sets, daily range): BP systolic 77–206; BP diastolic 35–127; PULSE 81–127; RESP 6–39; TEMP 36.3–37.4; O2SAT 85–100
[2024-10-13] MEDS: MIDODRINE HCL 5MG TABLET PO PRN (01:15)
[2024-10-13] MEDS: EPINEPHRINE 10 MG in SODIUM CHLORIDE 0.9% 240 ML IV PRN (06:49)
[2024-10-13] MEDS: PHENYLEPHRINE 50MG/250ML PMX 250 ML IV PRN (06:50)
[2024-10-13] MEDS: VASOPRESSIN 20 UNIT in SODIUM CHLORIDE 0.9% 99 ML IV PRN (06:50)
[2024-10-13] MEDS: DOPAMINE 400MG/250ML PREMIX 250 ML IV PRN (06:51)
[2024-10-13] MEDS: NOREPINEPHRINE 8MG/250ML PMX 250 ML IV PRN (06:51)
[2024-10-13] MEDS: NOREPINEPHRINE 32 MG in DEXT 5% WATER 218 ML IV PRN (07:58)
[2024-10-13] MEDS: PHENYLEPHRINE 100 MG in DEXT 5% WATER 240 ML IV PRN (07:58)
[2024-10-13 08:46] LABS: BG BASE EXCESS -1.6 mmol/L (-2.0-3.0); BG CARBOXYHEMOGLOBIN 0.3 % (0.5-1.5); BG DEOXYHEMOGLOBIN 12.5 % (0.0-5.0); BG FRACTION INSPIRED OXYGEN 100; BG HCO3 ACT 24.1 mmol/L (21.0-28.0); BG METHEMOGLOBIN 0.3 % (0.5-1.5); BG OXYGEN SATURATION 87.4 % (94.0-98.0); BG OXYHEMOGLOBIN 86.9 % (94.0-98.0); BG PCO2 44.4 mmHg (35.0-48.0); BG PEEP (cmH2O) 5.0 cmH2O; BG PH 7.352 (7.350-7.450); BG PO2 57.3 mmHg (83.0-108.0); BG SAMPLE SITE RIGHT BRACHIAL; BG TIDAL VOLUME(mL) 500.0 mL; BG TOTAL HEMOGLOBIN 11.7 g/dL (13.5-17.5); BG VENT MODE VENT - AC; BG VENT RATE 20.0 set
[2024-10-13 10:56] LABS: HEMATOCRIT. 44.1 % (42.0-52.0); HEMOGLOBIN. 13.3 g/dL (14.0-18.0); MEAN PLATELET VOLUME 7.5 fl (7.4-10.4); PLATELET 479 x1000/uL (130-400); RED BLOOD CELL COUNT 4.94 mill/uL (4.7-6.1); RED CELL DISTRIBUTION WIDTH 16.9 % (11.6-14.6)
[2024-10-13 10:59] LABS: CREATININE 2.7 mg/dL (0.6-1.3); UREA NITROGEN BLOOD 44 mg/dL (9-23)
[2024-10-13 11:01] LABS: ASPARTATE AMINOTRANSFERASE 46 IU/L (<34); BILIRUBIN TOTAL 0.8 mg/dL (0.1-1.0); PHOSPHORUS 3.4 mg/dL (2.5-4.9); PROTEIN TOTAL 7.8 g/dL (6.0-8.3)
[2024-10-13 12:14] LABS: BAND% 2.0 % (1.0-6.0); EOSINOPHILS % MANUAL 1.0 % (0.0-5.0); LYMPHOCYTES % MANUAL 3.0 % (20.0-50.0); METAMYELOCYTES % 1.0 % (0-0); MONOCYTES % MANUAL 5.0 % (2.0-8.0); NEUTROPHILS % MANUAL 88.0 % (45.0-75.0); PLATELET ESTIMATE INCREASED
[2024-10-13] MEDS: SODIUM CHLORIDE 0.45% 500 ML IV ONE (13:28)
[2024-10-13 13:58] LABS: PLATELET 533 x1000/uL (130-400); RED BLOOD CELL COUNT 3.84 mill/uL (4.7-6.1); RED CELL DISTRIBUTION WIDTH 16.4 % (11.6-14.6)
[2024-10-13 14:29] LABS: TROPONIN I HIGH SENSITIVITY 224 ng/L (3.0-53)
[2024-10-13 15:26] LABS: TROPONIN I HIGH SENSITIVITY 277 ng/L (3.0-53)
[2024-10-14] VITALS (101 sets, daily range): BP systolic 74–116; BP diastolic 53–96; PULSE 79–102; RESP 13–25; TEMP 36.6–38.1; O2SAT 80–100
[2024-10-14 06:25] LABS: HEMATOCRIT. 28.5 % (42.0-52.0); HEMOGLOBIN. 9.1 g/dL (14.0-18.0); MEAN PLATELET VOLUME 8.2 fl (7.4-10.4); PLATELET 473 x1000/uL (130-400); RED BLOOD CELL COUNT 3.44 mill/uL (4.7-6.1); RED CELL DISTRIBUTION WIDTH 16.1 % (11.6-14.6)
[2024-10-14 06:40] LABS: FOLIC ACID (FOLATE) SERUM 9.43 ng/mL (>5.38); VITAMIN B12 SERUM 569 pg/mL (211-911)
[2024-10-14 06:54] LABS: CREATININE 2.9 mg/dL (0.6-1.3); UREA NITROGEN BLOOD 57.0 mg/dL (9-23)
[2024-10-14 07:20] LABS: TROPONIN I HIGH SENSITIVITY 172 ng/L (3.0-53)
[2024-10-14 09:01] LABS: BG BASE EXCESS -0.6 mmol/L (-2.0-3.0); BG CARBOXYHEMOGLOBIN 0.3 % (0.5-1.5); BG DEOXYHEMOGLOBIN 1.7 % (0.0-5.0); BG FRACTION INSPIRED OXYGEN 100; BG HCO3 ACT 22.5 mmol/L (21.0-28.0); BG METHEMOGLOBIN 0.3 % (0.5-1.5); BG OXYGEN SATURATION 98.3 % (94.0-98.0); BG OXYHEMOGLOBIN 97.7 % (94.0-98.0); BG PCO2 31.2 mmHg (35.0-48.0); BG PEEP (cmH2O) 5.0 cmH2O; BG PH 7.475 (7.350-7.450); BG PO2 109.4 mmHg (83.0-108.0); BG SAMPLE SITE RIGHT RADIAL; BG TIDAL VOLUME(mL) 500.0 mL; BG TOTAL HEMOGLOBIN 9.7 g/dL (13.5-17.5); BG VENT MODE VENT - AC; BG VENT RATE 20.0 set
[2024-10-14] MEDS ORDERED: NON FORMULARY MED XX SCH (10:45)
[2024-10-14] MEDS: IRON SUCROSE COMPLEX 100 MG/5 ML ML IV SCH (11:14)
[2024-10-14] MEDS: MIDODRINE HCL 5MG TABLET PO SCH (12:52)
[2024-10-14] MEDS ORDERED: MIDODRINE HCL 5MG TABLET PO SCH (13:00)
[2024-10-14] MEDS: ACETAMINOPHEN 650MG/20.3ML UDC NG PRN (16:11)
[2024-10-14 16:43] LABS: LYMPHOCYTES % MANUAL 9.0 % (20.0-50.0); MONOCYTES % MANUAL 6.0 % (2.0-8.0); NEUTROPHILS % MANUAL 85.0 % (45.0-75.0); PLATELET ESTIMATE NORMAL
[2024-10-15] VITALS (105 sets, daily range): BP systolic 64–198; BP diastolic 50–105; PULSE 75–88; RESP 8–22; TEMP 36.1–37.1; O2SAT 92–100
[2024-10-15 04:52] LABS: HEMATOCRIT. 25.4 % (42.0-52.0); HEMOGLOBIN. 8.2 g/dL (14.0-18.0); MEAN PLATELET VOLUME 8.2 fl (7.4-10.4); PLATELET 403 x1000/uL (130-400); RED BLOOD CELL COUNT 3.07 mill/uL (4.7-6.1); RED CELL DISTRIBUTION WIDTH 16.6 % (11.6-14.6)
[2024-10-15 04:54] LABS: CREATININE 2.8 mg/dL (0.6-1.3)
[2024-10-15 04:55] LABS: UREA NITROGEN BLOOD 67.0 mg/dL (9-23)
[2024-10-15 08:55] LABS: BG BASE EXCESS 0.9 mmol/L (-2.0-3.0); BG CARBOXYHEMOGLOBIN 0.9 % (0.5-1.5); BG DEOXYHEMOGLOBIN 1.7 % (0.0-5.0); BG FRACTION INSPIRED OXYGEN 50; BG HCO3 ACT 25.1 mmol/L (21.0-28.0); BG METHEMOGLOBIN 0.1 % (0.5-1.5); BG OXYGEN SATURATION 98.3 % (94.0-98.0); BG OXYHEMOGLOBIN 97.3 % (94.0-98.0); BG PCO2 38.1 mmHg (35.0-48.0); BG PEEP (cmH2O) 5.0 cmH2O; BG PH 7.437 (7.350-7.450); BG PO2 108.7 mmHg (83.0-108.0); BG SAMPLE SITE LEFT BRACHIAL; BG TIDAL VOLUME(mL) 500.0 mL; BG TOTAL HEMOGLOBIN 8.2 g/dL (13.5-17.5); BG VENT MODE VENT - AC; BG VENT RATE 16.0 set
[2024-10-15] MEDS: SODIUM CHLORIDE 0.45% 1,000 ML IV SCH (13:34)
[2024-10-15] MEDS ORDERED: FENTANYL CITRATE/PF 50MCG/ML 2ML VIAL ONE (20:52)
[2024-10-15] MEDS ORDERED: ROCURONIUM BROMIDE 10MG/ML VIAL 5ML IV ONE (20:54)
[2024-10-16] VITALS (103 sets, daily range): BP systolic 61–187; BP diastolic 47–100; PULSE 72–90; RESP 8–25; TEMP 36.5–37.1; O2SAT 93–100
[2024-10-16 04:44] LABS: CREATININE 2.9 mg/dL (0.6-1.3); UREA NITROGEN BLOOD 67 mg/dL (9-23)
[2024-10-16 04:45] LABS: ASPARTATE AMINOTRANSFERASE 27 IU/L (<34); HEMATOCRIT. 27.6 % (42.0-52.0); HEMOGLOBIN. 8.6 g/dL (14.0-18.0); MEAN PLATELET VOLUME 8.4 fl (7.4-10.4); PLATELET 387 x1000/uL (130-400); RED BLOOD CELL COUNT 3.23 mill/uL (4.7-6.1); RED CELL DISTRIBUTION WIDTH 16.5 % (11.6-14.6)
[2024-10-16 04:46] LABS: BILIRUBIN DIRECT 0.2 mg/dL (<=3.0); BILIRUBIN TOTAL 0.3 mg/dL (0.1-1.0); PROTEIN TOTAL 6.2 g/dL (6.0-8.3)
[2024-10-16 09:25] LABS: BG BASE EXCESS -0.4 mmol/L (-2.0-3.0); BG CARBOXYHEMOGLOBIN 0.3 % (0.5-1.5); BG DEOXYHEMOGLOBIN 3.9 % (0.0-5.0); BG FRACTION INSPIRED OXYGEN 50; BG HCO3 ACT 23.6 mmol/L (21.0-28.0); BG METHEMOGLOBIN 0.3 % (0.5-1.5); BG OXYGEN SATURATION 96.1 % (94.0-98.0); BG OXYHEMOGLOBIN 95.5 % (94.0-98.0); BG PCO2 35.7 mmHg (35.0-48.0); BG PEEP (cmH2O) 5.0 cmH2O; BG PH 7.438 (7.350-7.450); BG PO2 83.7 mmHg (83.0-108.0); BG SAMPLE SITE RIGHT RADIAL; BG TIDAL VOLUME(mL) 500.0 mL; BG TOTAL HEMOGLOBIN 8.2 g/dL (13.5-17.5); BG VENT MODE VENT - AC; BG VENT RATE 16.0 set
[2024-10-16 09:41] LABS: BAND% 5.0 % (1.0-6.0); EOSINOPHILS % MANUAL 1.0 % (0.0-5.0); LYMPHOCYTES % MANUAL 6.0 % (20.0-50.0); MONOCYTES % MANUAL 2.0 % (2.0-8.0); NEUTROPHILS % MANUAL 86.0 % (45.0-75.0)
[2024-10-16 09:48] LABS: PLATELET ESTIMATE SLIGHTLY INCREASED
[2024-10-16] MEDS ORDERED: LIDOCAINE HCL 1% 10 MG/ML 10ML VIAL ONE (10:21)
[2024-10-16 12:11] LABS: BAND% 2.0 % (1.0-6.0); LYMPHOCYTES % MANUAL 10.0 % (20.0-50.0); MONOCYTES % MANUAL 5.0 % (2.0-8.0); NEUTROPHILS % MANUAL 83.0 % (45.0-75.0); PLATELET ESTIMATE NORMAL
[2024-10-16] MEDS: SODIUM CHLORIDE 0.9% 1,000 ML IV ONE (18:43)
[2024-10-16] MEDS: MICAFUNGIN 100 MG in SODIUM CHLORIDE 0.9% 100 ML IV SCH (18:44)
[2024-10-16] MEDS ORDERED: ENOXAPARIN 30MG/0.3ML SYR SUBCUT SCH (21:00)
[2024-10-16] MEDS: ENOXAPARIN 40MG/0.4ML SYR SUBCUT SCH (21:00)
[2024-10-16] MEDS: MIDODRINE HCL 5MG TABLET PO SCH (21:10)
[2024-10-17] VITALS (106 sets, daily range): BP systolic 69–151; BP diastolic 48–78; PULSE 67–83; RESP 8–24; TEMP 36.3–36.8; O2SAT 90–100
[2024-10-17 06:24] LABS: BASOPHILS % 0.4 % (0.0-2.0); EOSINOPHILS % 1.5 % (0.0-5.0); HEMATOCRIT. 23.8 % (42.0-52.0); HEMOGLOBIN. 7.9 g/dL (14.0-18.0); LYMPHOCYTES % 8.6 % (20.0-50.0); MEAN PLATELET VOLUME 8.3 fl (7.4-10.4); MONOCYTES % 5.3 % (2.0-8.0); NEUTROPHILS % 84.2 % (40.0-76.0); PLATELET 470 x1000/uL (130-400); RED BLOOD CELL COUNT 2.89 mill/uL (4.7-6.1); RED CELL DISTRIBUTION WIDTH 16.4 % (11.6-14.6)
[2024-10-17 06:45] LABS: CREATININE 3.2 mg/dL (0.6-1.3); UREA NITROGEN BLOOD 72.0 mg/dL (9-23)
[2024-10-17] MEDS: FUROSEMIDE 20MG/2ML VIAL IVP NR (09:03)
[2024-10-17] MEDS: POTASSIUM CHLORIDE 20MEQ/PACKET PO NR (09:03)
[2024-10-17 09:32] LABS: BG BASE EXCESS 0.6 mmol/L (-2.0-3.0); BG CARBOXYHEMOGLOBIN 0.1 % (0.5-1.5); BG DEOXYHEMOGLOBIN 4.1 % (0.0-5.0); BG FRACTION INSPIRED OXYGEN 40; BG HCO3 ACT 24.6 mmol/L (21.0-28.0); BG METHEMOGLOBIN 0.1 % (0.5-1.5); BG OXYGEN SATURATION 95.9 % (94.0-98.0); BG OXYHEMOGLOBIN 95.7 % (94.0-98.0); BG PCO2 36.7 mmHg (35.0-48.0); BG PEEP (cmH2O) 5.0 cmH2O; BG PH 7.445 (7.350-7.450); BG PO2 79.5 mmHg (83.0-108.0); BG SAMPLE SITE RIGHT RADIAL; BG TIDAL VOLUME(mL) 500.0 mL; BG TOTAL HEMOGLOBIN 6.6 g/dL (13.5-17.5); BG VENT MODE VENT - AC; BG VENT RATE 16.0 set
[2024-10-18] VITALS (32 sets, daily range): BP systolic 97–130; BP diastolic 56–74; PULSE 70–80; RESP 0–25; TEMP 36.1–37.5; O2SAT 89–100
[2024-10-18 07:36] LABS: BASOPHILS % 0.3 % (0.0-2.0); EOSINOPHILS % 1.7 % (0.0-5.0); HEMATOCRIT. 26.1 % (42.0-52.0); HEMOGLOBIN. 8.4 g/dL (14.0-18.0); LYMPHOCYTES % 9.4 % (20.0-50.0); MEAN PLATELET VOLUME 8.2 fl (7.4-10.4); MONOCYTES % 7.3 % (2.0-8.0); NEUTROPHILS % 81.3 % (40.0-76.0); PLATELET 466 x1000/uL (130-400); RED BLOOD CELL COUNT 3.17 mill/uL (4.7-6.1); RED CELL DISTRIBUTION WIDTH 16.4 % (11.6-14.6)
[2024-10-18 08:00] LABS: CREATININE 3.4 mg/dL (0.6-1.3); UREA NITROGEN BLOOD 76.0 mg/dL (9-23)
[2024-10-18 09:02] LABS: BG BASE EXCESS -1.3 mmol/L (-2.0-3.0); BG CARBOXYHEMOGLOBIN 1.4 % (0.5-1.5); BG DEOXYHEMOGLOBIN 3.1 % (0.0-5.0); BG FRACTION INSPIRED OXYGEN 40; BG HCO3 ACT 22.3 mmol/L (21.0-28.0); BG METHEMOGLOBIN 0.1 % (0.5-1.5); BG OXYGEN SATURATION 96.9 % (94.0-98.0); BG OXYHEMOGLOBIN 95.4 % (94.0-98.0); BG PCO2 32.6 mmHg (35.0-48.0); BG PEEP (cmH2O) 5.0 cmH2O; BG PH 7.452 (7.350-7.450); BG PO2 86.6 mmHg (83.0-108.0); BG SAMPLE SITE RIGHT RADIAL; BG TIDAL VOLUME(mL) 500.0 mL; BG TOTAL HEMOGLOBIN 8.5 g/dL (13.5-17.5); BG VENT MODE VENT - AC; BG VENT RATE 16.0 set
[2024-10-19] VITALS (23 sets, daily range): BP systolic 92–133; BP diastolic 53–67; PULSE 69–81; RESP 11–24; TEMP 36.8–37.4; O2SAT 93–99
[2024-10-19 08:14] LABS: BASOPHILS % 0.5 % (0.0-2.0); EOSINOPHILS % 1.5 % (0.0-5.0); HEMATOCRIT. 25.8 % (42.0-52.0); HEMOGLOBIN. 8.5 g/dL (14.0-18.0); LYMPHOCYTES % 11.1 % (20.0-50.0); MEAN PLATELET VOLUME 8.3 fl (7.4-10.4); MONOCYTES % 9.2 % (2.0-8.0); NEUTROPHILS % 77.7 % (40.0-76.0); PLATELET 472 x1000/uL (130-400); RED BLOOD CELL COUNT 3.12 mill/uL (4.7-6.1); RED CELL DISTRIBUTION WIDTH 16.8 % (11.6-14.6)
[2024-10-19 08:44] LABS: CREATININE 3.2 mg/dL (0.6-1.3)
[2024-10-19 08:45] LABS: UREA NITROGEN BLOOD 77 mg/dL (9-23)
[2024-10-19 08:47] LABS: PHOSPHORUS 3.3 mg/dL (2.5-4.9)
[2024-10-20] VITALS (17 sets, daily range): BP systolic 109–146; BP diastolic 57–69; PULSE 72–85; RESP 0–27; TEMP 36.3–37.1; O2SAT 97–99
[2024-10-20 07:20] LABS: BASOPHILS % 0.6 % (0.0-2.0); CREATININE 3.0 mg/dL (0.6-1.3); EOSINOPHILS % 1.7 % (0.0-5.0); HEMATOCRIT. 23.7 % (42.0-52.0); HEMOGLOBIN. 7.9 g/dL (14.0-18.0); LYMPHOCYTES % 9.2 % (20.0-50.0); MEAN PLATELET VOLUME 8.3 fl (7.4-10.4); MONOCYTES % 9.8 % (2.0-8.0); NEUTROPHILS % 78.7 % (40.0-76.0); PLATELET 501 x1000/uL (130-400); RED BLOOD CELL COUNT 2.87 mill/uL (4.7-6.1); RED CELL DISTRIBUTION WIDTH 16.7 % (11.6-14.6); UREA NITROGEN BLOOD 74.0 mg/dL (9-23)
[2024-10-21] VITALS (23 sets, daily range): BP systolic 103–133; BP diastolic 58–72; PULSE 70–92; RESP 0–28; TEMP 36.4–36.6; O2SAT 93–99
[2024-10-21 06:05] LABS: INR 1.1
[2024-10-21 06:16] LABS: CREATININE 2.6 mg/dL (0.6-1.3)
[2024-10-21 06:17] LABS: UREA NITROGEN BLOOD 71.0 mg/dL (9-23)
[2024-10-21 06:44] LABS: BASOPHILS % 0.9 % (0.0-2.0); EOSINOPHILS % 2.2 % (0.0-5.0); HEMATOCRIT. 23.3 % (42.0-52.0); HEMOGLOBIN. 7.8 g/dL (14.0-18.0); LYMPHOCYTES % 15.5 % (20.0-50.0); MEAN PLATELET VOLUME 8.1 fl (7.4-10.4); MONOCYTES % 11.1 % (2.0-8.0); NEUTROPHILS % 70.3 % (40.0-76.0); PLATELET 538 x1000/uL (130-400); RED BLOOD CELL COUNT 2.83 mill/uL (4.7-6.1); RED CELL DISTRIBUTION WIDTH 16.8 % (11.6-14.6)
[2024-10-21] MEDS: DEXT 5%/0.45% NACL 1000ML 1,000 ML IV SCH (09:39)
[2024-10-22] VITALS (25 sets, daily range): BP systolic 122–137; BP diastolic 66–79; PULSE 75–89; RESP 8–20; TEMP 37.2–37.8; O2SAT 9–100
[2024-10-22 06:20] LABS: CREATININE 2.3 mg/dL (0.6-1.3); UREA NITROGEN BLOOD 58.0 mg/dL (9-23)
[2024-10-22 06:33] LABS: BASOPHILS % 0.6 % (0.0-2.0); EOSINOPHILS % 2.3 % (0.0-5.0); HEMATOCRIT. 24.7 % (42.0-52.0); HEMOGLOBIN. 8.2 g/dL (14.0-18.0); LYMPHOCYTES % 12.9 % (20.0-50.0); MEAN PLATELET VOLUME 8.0 fl (7.4-10.4); MONOCYTES % 7.9 % (2.0-8.0); NEUTROPHILS % 76.3 % (40.0-76.0); PLATELET 592 x1000/uL (130-400); RED BLOOD CELL COUNT 2.93 mill/uL (4.7-6.1); RED CELL DISTRIBUTION WIDTH 17.6 % (11.6-14.6)
[2024-10-22] MEDS: ASCORBIC ACID 250 MG TABLET NG SCH (10:35)
[2024-10-22] MEDS: FERROUS SULFATE 300MG/5ML UDC NG SCH (10:35)
[2024-10-22] MEDS: PIPERACILLIN/TAZO 3.375G/50ML 50 ML IV SCH (14:50)
[2024-10-22] MEDS ORDERED: VANCOMYCIN 750MG PMX (XELLIA) 150 ML IV NR (15:00)
[2024-10-22] MEDS: VANCOMYCIN 1.5GM PMX (XELLIA) 300 ML IV SCH (17:11)
[2024-10-22] MEDS: DEXTROSE 5% WATER 1,000 ML IV SCH (23:45)
[2024-10-23] VITALS (23 sets, daily range): BP systolic 95–137; BP diastolic 62–87; PULSE 76–92; RESP 7–22; TEMP 36.1–36.7; O2SAT 92–100
[2024-10-23 10:53] LABS: BASOPHILS % 0.4 % (0.0-2.0); EOSINOPHILS % 1.8 % (0.0-5.0); HEMATOCRIT. 28.0 % (42.0-52.0); HEMOGLOBIN. 8.9 g/dL (14.0-18.0); LYMPHOCYTES % 7.9 % (20.0-50.0); MEAN PLATELET VOLUME 7.7 fl (7.4-10.4); MONOCYTES % 6.3 % (2.0-8.0); NEUTROPHILS % 83.6 % (40.0-76.0); PLATELET 649 x1000/uL (130-400); RED BLOOD CELL COUNT 3.29 mill/uL (4.7-6.1); RED CELL DISTRIBUTION WIDTH 17.9 % (11.6-14.6)
[2024-10-23 11:10] LABS: INR 1.1
[2024-10-23 11:18] LABS: CREATININE 2.0 mg/dL (0.6-1.3)
[2024-10-23 11:19] LABS: UREA NITROGEN BLOOD 47.0 mg/dL (9-23)
[2024-10-23] MEDS ORDERED: EPHEDRINE SULFATE 50MG/ML VIAL ONE (16:22)
[2024-10-23] MEDS ORDERED: PROPOFOL 200MG/20ML VIAL IV ONE (16:22)
[2024-10-24] VITALS (22 sets, daily range): BP systolic 82–157; BP diastolic 57–90; PULSE 70–90; RESP 10–19; TEMP 36.6–37.4; O2SAT 94–100
[2024-10-24 07:35] LABS: HEMATOCRIT. 24.5 % (42.0-52.0); HEMOGLOBIN. 7.8 g/dL (14.0-18.0); MEAN PLATELET VOLUME 8.0 fl (7.4-10.4); PLATELET 697 x1000/uL (130-400); RED BLOOD CELL COUNT 2.89 mill/uL (4.7-6.1); RED CELL DISTRIBUTION WIDTH 17.1 % (11.6-14.6)
[2024-10-24 07:54] LABS: CREATININE 1.9 mg/dL (0.6-1.3); UREA NITROGEN BLOOD 43.0 mg/dL (9-23)
[2024-10-24 13:41] LABS: BAND% 3.0 % (1.0-6.0); EOSINOPHILS % MANUAL 3.0 % (0.0-5.0); LYMPHOCYTES % MANUAL 6.0 % (20.0-50.0); MONOCYTES % MANUAL 6.0 % (2.0-8.0); NEUTROPHILS % MANUAL 82.0 % (45.0-75.0); PLATELET ESTIMATE INCREASED
[2024-10-24] MEDS ORDERED: IPRATROPIUM/ALBUTEROL 0.5-3(2.5)MG/3ML NEB HHN PRN (17:15)
[2024-10-25] VITALS (23 sets, daily range): BP systolic 101–147; BP diastolic 67–91; PULSE 68–84; RESP 13–22; TEMP 36.4–37; O2SAT 98–100
[2024-10-25] MEDS: ACETYLCYSTEINE 200MG/ML 20% VIAL 4ML INH SCH (00:44)
[2024-10-25] MEDS: IPRATROPIUM/ALBUTEROL 0.5-3(2.5)MG/3ML NEB HHN SCH (00:44)
[2024-10-25 07:43] LABS: BASOPHILS % 0.6 % (0.0-2.0); EOSINOPHILS % 2.9 % (0.0-5.0); HEMATOCRIT. 25.0 % (42.0-52.0); HEMOGLOBIN. 8.2 g/dL (14.0-18.0); LYMPHOCYTES % 11.3 % (20.0-50.0); MEAN PLATELET VOLUME 7.7 fl (7.4-10.4); MONOCYTES % 5.0 % (2.0-8.0); NEUTROPHILS % 80.2 % (40.0-76.0); PLATELET 680 x1000/uL (130-400); RED BLOOD CELL COUNT 3.00 mill/uL (4.7-6.1); RED CELL DISTRIBUTION WIDTH 17.6 % (11.6-14.6)
[2024-10-25 08:11] LABS: CREATININE 2.0 mg/dL (0.6-1.3); UREA NITROGEN BLOOD 40.0 mg/dL (9-23)
[2024-10-25] MEDS: VANCOMYCIN 750MG PMX (XELLIA) 150 ML IV SCH (21:58)
[2024-10-26] VITALS (22 sets, daily range): BP systolic 87–154; BP diastolic 62–95; PULSE 71–84; RESP 11–22; TEMP 36.4–37.2; O2SAT 99–100
[2024-10-26 05:29] LABS: CREATININE 1.9 mg/dL (0.6-1.3); UREA NITROGEN BLOOD 34.0 mg/dL (9-23)
[2024-10-26 07:03] LABS: BASOPHILS % 0.6 % (0.0-2.0); EOSINOPHILS % 3.0 % (0.0-5.0); HEMATOCRIT. 24.5 % (42.0-52.0); HEMOGLOBIN. 7.8 g/dL (14.0-18.0); LYMPHOCYTES % 12.0 % (20.0-50.0); MEAN PLATELET VOLUME 7.6 fl (7.4-10.4); MONOCYTES % 6.9 % (2.0-8.0); NEUTROPHILS % 77.5 % (40.0-76.0); PLATELET 641 x1000/uL (130-400); RED BLOOD CELL COUNT 2.92 mill/uL (4.7-6.1); RED CELL DISTRIBUTION WIDTH 17.3 % (11.6-14.6)
[2024-10-26] MEDS: METOCLOPRAMIDE HCL 10MG/2ML VIAL IV NR (13:18)
[2024-10-26] MEDS: METOCLOPRAMIDE HCL 10MG/2ML VIAL IV SCH (17:33)
[2024-10-27] VITALS (23 sets, daily range): BP systolic 88–136; BP diastolic 52–83; PULSE 60–86; RESP 11–24; TEMP 36.2–37; O2SAT 99–100
[2024-10-27 05:36] LABS: CREATININE 1.7 mg/dL (0.6-1.3); UREA NITROGEN BLOOD 29.0 mg/dL (9-23)
[2024-10-27] MEDS: DEXTROSE 5% WATER 1,000 ML IV SCH (06:22)
[2024-10-27 06:37] LABS: PLATELET 684 x1000/uL (130-400); RED BLOOD CELL COUNT 2.81 mill/uL (4.7-6.1); RED CELL DISTRIBUTION WIDTH 17.5 % (11.6-14.6)
[2024-10-27] MEDS: VANCOMYCIN 1GM PMX (XELLIA) 200 ML IV SCH (20:03)
[2024-10-28] VITALS (24 sets, daily range): BP systolic 102–135; BP diastolic 60–89; PULSE 73–99; RESP 12–23; TEMP 36.6–37.9; O2SAT 90–100
[2024-10-28 06:51] LABS: CREATININE 1.7 mg/dL (0.6-1.3); UREA NITROGEN BLOOD 25.0 mg/dL (9-23)
[2024-10-28 07:21] LABS: BASOPHILS % 0.4 % (0.0-2.0); EOSINOPHILS % 2.5 % (0.0-5.0); HEMATOCRIT. 27.1 % (42.0-52.0); HEMOGLOBIN. 8.9 g/dL (14.0-18.0); LYMPHOCYTES % 8.0 % (20.0-50.0); MEAN PLATELET VOLUME 7.2 fl (7.4-10.4); MONOCYTES % 7.3 % (2.0-8.0); NEUTROPHILS % 81.8 % (40.0-76.0); PLATELET 739 x1000/uL (130-400); RED BLOOD CELL COUNT 3.29 mill/uL (4.7-6.1); RED CELL DISTRIBUTION WIDTH 17.6 % (11.6-14.6)
[2024-10-28] MEDS ORDERED: TOBRAMYCIN SULFATE 80MG/2ML 30ML INH SCH (12:00)
[2024-10-29] VITALS (26 sets, daily range): BP systolic 110–148; BP diastolic 71–119; PULSE 70–100; RESP 12–21; TEMP 36.8–37; O2SAT 98–100
[2024-10-29 08:51] LABS: HEMATOCRIT. 22.3 % (42.0-52.0); HEMOGLOBIN. 7.6 g/dL (14.0-18.0); MEAN PLATELET VOLUME 7.2 fl (7.4-10.4); PLATELET 649 x1000/uL (130-400); RED BLOOD CELL COUNT 2.73 mill/uL (4.7-6.1); RED CELL DISTRIBUTION WIDTH 17.1 % (11.6-14.6)
[2024-10-29 09:03] LABS: CREATININE 1.7 mg/dL (0.6-1.3)
[2024-10-29 09:04] LABS: UREA NITROGEN BLOOD 27.0 mg/dL (9-23)
[2024-10-29 10:56] LABS: BAND% 2.0 % (1.0-6.0); EOSINOPHILS % MANUAL 1.0 % (0.0-5.0); LYMPHOCYTES % MANUAL 6.0 % (20.0-50.0); MONOCYTES % MANUAL 2.0 % (2.0-8.0); NEUTROPHILS % MANUAL 89.0 % (45.0-75.0)
[2024-10-29 10:57] LABS: PLATELET ESTIMATE INCREASED
[2024-10-30] VITALS (25 sets, daily range): BP systolic 118–150; BP diastolic 70–90; PULSE 66–89; RESP 13–20; TEMP 36.1–37.1; O2SAT 91–100
[2024-10-30] MEDS ORDERED: CEFEPIME 2GM IN DEXT 5% 100ML IV SCH
[2024-10-30] MEDS: CEFEPIME 2GM PREMIX 100ML IV SCH (00:43)
[2024-10-30] MEDS: TOBRAMYCIN SULFATE 40MG/ML 2ML INH SCH (01:00)
[2024-10-30] MEDS: IPRATROPIUM/ALBUTEROL 0.5-3(2.5)MG/3ML NEB HHN SCH (17:59)
[2024-10-30] MEDS: ACETYLCYSTEINE 200MG/ML 20% VIAL 4ML INH SCH (18:00)
[2024-10-31] VITALS (23 sets, daily range): BP systolic 105–157; BP diastolic 68–92; PULSE 70–95; RESP 15–21; TEMP 36.6–37.1; O2SAT 98–100
[2024-10-31 06:35] LABS: BASOPHILS % 0.5 % (0.0-2.0); EOSINOPHILS % 4.6 % (0.0-5.0); HEMATOCRIT. 21.4 % (42.0-52.0); HEMOGLOBIN. 7.2 g/dL (14.0-18.0); LYMPHOCYTES % 10.5 % (20.0-50.0); MEAN PLATELET VOLUME 7.4 fl (7.4-10.4); MONOCYTES % 7.8 % (2.0-8.0); NEUTROPHILS % 76.6 % (40.0-76.0); PLATELET 572 x1000/uL (130-400); RED BLOOD CELL COUNT 2.66 mill/uL (4.7-6.1); RED CELL DISTRIBUTION WIDTH 17.0 % (11.6-14.6)
[2024-10-31 06:55] LABS: CREATININE 1.7 mg/dL (0.6-1.3); UREA NITROGEN BLOOD 28.0 mg/dL (9-23)
[2024-11-01] VITALS (25 sets, daily range): BP systolic 124–148; BP diastolic 74–87; PULSE 71–85; RESP 9–19; TEMP 36.4–37.2; O2SAT 96–100
[2024-11-02] VITALS (23 sets, daily range): BP systolic 107–130; BP diastolic 64–82; PULSE 66–83; RESP 1–18; TEMP 36.4–36.9; O2SAT 33–100
[2024-11-02 17:41] LABS: BASOPHILS % 1.2 % (0.0-2.0); EOSINOPHILS % 5.1 % (0.0-5.0); HEMATOCRIT. 22.2 % (42.0-52.0); HEMOGLOBIN. 7.2 g/dL (14.0-18.0); LYMPHOCYTES % 14.6 % (20.0-50.0); MEAN PLATELET VOLUME 7.7 fl (7.4-10.4); MONOCYTES % 8.5 % (2.0-8.0); NEUTROPHILS % 70.6 % (40.0-76.0); PLATELET 522 x1000/uL (130-400); RED BLOOD CELL COUNT 2.74 mill/uL (4.7-6.1); RED CELL DISTRIBUTION WIDTH 17.1 % (11.6-14.6)
[2024-11-02 17:58] LABS: CREATININE 1.7 mg/dL (0.6-1.3); UREA NITROGEN BLOOD 33.0 mg/dL (9-23)
[2024-11-02] MEDS: INSULIN LISPRO 100 UNITS/ML SUBCUT SCH (23:00)
[2024-11-02] MEDS: BLOOD SUGAR DIAGNOSTIC STRIP TEST SCH (23:26)
[2024-11-03] VITALS (29 sets, daily range): BP systolic 105–178; BP diastolic 64–107; PULSE 72–94; RESP 10–22; TEMP 36.44736–37.16964; O2SAT 97–100
[2024-11-03 07:35] LABS: BASOPHILS % 1.0 % (0.0-2.0); EOSINOPHILS % 4.2 % (0.0-5.0); LYMPHOCYTES % 14.5 % (20.0-50.0); MONOCYTES % 9.8 % (2.0-8.0); NEUTROPHILS % 70.5 % (40.0-76.0); RED BLOOD CELL COUNT 2.45 mill/uL (4.7-6.1); RED CELL DISTRIBUTION WIDTH 17.3 % (11.6-14.6)
[2024-11-03 07:51] LABS: CREATININE 1.7 mg/dL (0.6-1.3)
[2024-11-03 07:52] LABS: UREA NITROGEN BLOOD 41.0 mg/dL (9-23)
[2024-11-03 08:25] LABS: HEMATOCRIT. 20.3 % (42.0-52.0); HEMOGLOBIN. 6.7 g/dL (14.0-18.0)
[2024-11-03 09:51] LABS: PLATELET 514 x1000/uL (130-400)
[2024-11-03] MEDS: SODIUM ZIRCONIUM CYCLOSILICATE 10GM/PACKET PO NR (13:41)
[2024-11-03] MEDS ORDERED: SODIUM ZIRCONIUM CYCLOSILICATE 10GM/PACKET PO SCH (14:00)
[2024-11-03] MEDS: DEXTROSE 50% WATER 50ML SYRINGE IV PRN (16:27)
[2024-11-03] MEDS: PANTOPRAZOLE SODIUM 40 MG/VIAL IV SCH (20:29)
[2024-11-03] MEDS: DEXTROSE 5% WATER 1,000 ML IV SCH (23:33)
[2024-11-04] VITALS (24 sets, daily range): BP systolic 124–158; BP diastolic 76–91; PULSE 75–91; RESP 12–19; TEMP 36.8–37.4; O2SAT 99–100
[2024-11-04 02:41] LABS: BASOPHILS % 1.2 % (0.0-2.0); EOSINOPHILS % 3.2 % (0.0-5.0); HEMATOCRIT. 26.9 % (42.0-52.0); HEMOGLOBIN. 8.9 g/dL (14.0-18.0); LYMPHOCYTES % 12.4 % (20.0-50.0); MEAN PLATELET VOLUME 7.2 fl (7.4-10.4); MONOCYTES % 11.8 % (2.0-8.0); NEUTROPHILS % 71.4 % (40.0-76.0); PLATELET 492 x1000/uL (130-400); RED BLOOD CELL COUNT 3.36 mill/uL (4.7-6.1); RED CELL DISTRIBUTION WIDTH 17.7 % (11.6-14.6)
[2024-11-04 02:52] LABS: CREATININE 1.7 mg/dL (0.6-1.3)
[2024-11-04 02:53] LABS: UREA NITROGEN BLOOD 35.0 mg/dL (9-23)
[2024-11-04] MEDS: HYDRALAZINE 20MG/ML VIAL IV PRN (06:44)
[2024-11-04 07:12] LABS: CLARITY URINE TURBID (CLEAR); COLOR URINE RED (YELLOW)
[2024-11-04 07:32] LABS: GLUCOSE URINE NEGATIVE (NEGATIVE); KETONES URINE NEGATIVE (NEGATIVE); PH URINE 6.5 (4.5-8.0); PROTEIN URINE 2+ (NEGATIVE); SPECIFIC GRAVITY URINE 1.013 (1.005-1.030)
[2024-11-04 07:33] LABS: LEUKOCYTE ESTERASE URINE TRACE (NEGATIVE); NITRITE URINE NEGATIVE (NEGATIVE); OCCULT BLOOD URINE 3+ (NEGATIVE); UROBILINOGEN URINE 0.2 E.U./dL (0.2-1.0)
[2024-11-04 08:23] LABS: RBC URINE TNTC /hpf (0-2)
[2024-11-04 08:24] LABS: SQUAMOUS EPITHELIAL CELL URINE FEW /lpf (RARE/1+)
[2024-11-04 08:27] LABS: WBC URINE 25-50 /hpf (0-2)
[2024-11-04 08:28] LABS: BACTERIA URINE NONE SEEN; YEAST URINE NONE SEEN
[2024-11-05] VITALS (24 sets, daily range): BP systolic 106–141; BP diastolic 68–84; PULSE 72–84; RESP 14–18; TEMP 36.8–37.2; O2SAT 95–100
[2024-11-05 05:53] LABS: CREATININE 1.8 mg/dL (0.6-1.3); UREA NITROGEN BLOOD 36.0 mg/dL (9-23)
[2024-11-05 05:57] LABS: HEMATOCRIT. 25.0 % (42.0-52.0); HEMOGLOBIN. 8.3 g/dL (14.0-18.0); MEAN PLATELET VOLUME 7.5 fl (7.4-10.4); PLATELET 465 x1000/uL (130-400); RED BLOOD CELL COUNT 3.13 mill/uL (4.7-6.1); RED CELL DISTRIBUTION WIDTH 17.6 % (11.6-14.6)
[2024-11-05 19:38] LABS: EOSINOPHILS % MANUAL 3.0 % (0.0-5.0); LYMPHOCYTES % MANUAL 13.0 % (20.0-50.0); MONOCYTES % MANUAL 12.0 % (2.0-8.0); NEUTROPHILS % MANUAL 72.0 % (45.0-75.0); PLATELET ESTIMATE INCREASED
[2024-11-06] VITALS (25 sets, daily range): BP systolic 102–144; BP diastolic 63–100; PULSE 70–96; RESP 12–20; TEMP 36.8–37.1; O2SAT 93–100
[2024-11-06 07:00] LABS: BASOPHILS % 1.2 % (0.0-2.0); EOSINOPHILS % 4.8 % (0.0-5.0); HEMATOCRIT. 25.6 % (42.0-52.0); HEMOGLOBIN. 8.5 g/dL (14.0-18.0); LYMPHOCYTES % 19.8 % (20.0-50.0); MEAN PLATELET VOLUME 7.3 fl (7.4-10.4); MONOCYTES % 9.2 % (2.0-8.0); NEUTROPHILS % 65.0 % (40.0-76.0); PLATELET 484 x1000/uL (130-400); RED BLOOD CELL COUNT 3.19 mill/uL (4.7-6.1); RED CELL DISTRIBUTION WIDTH 18.1 % (11.6-14.6)
[2024-11-06 07:04] LABS: CREATININE 1.8 mg/dL (0.6-1.3); UREA NITROGEN BLOOD 37.0 mg/dL (9-23)
[2024-11-07] VITALS (24 sets, daily range): BP systolic 92–137; BP diastolic 57–80; PULSE 71–88; RESP 9–16; TEMP 36.3–37; O2SAT 97–100
[2024-11-07 07:15] LABS: BASOPHILS % 0.9 % (0.0-2.0); EOSINOPHILS % 3.9 % (0.0-5.0); HEMATOCRIT. 24.0 % (42.0-52.0); HEMOGLOBIN. 8.1 g/dL (14.0-18.0); LYMPHOCYTES % 14.6 % (20.0-50.0); MEAN PLATELET VOLUME 7.4 fl (7.4-10.4); MONOCYTES % 9.1 % (2.0-8.0); NEUTROPHILS % 71.5 % (40.0-76.0); PLATELET 414 x1000/uL (130-400); RED BLOOD CELL COUNT 2.96 mill/uL (4.7-6.1); RED CELL DISTRIBUTION WIDTH 17.4 % (11.6-14.6)
[2024-11-07 07:36] LABS: CREATININE 1.9 mg/dL (0.6-1.3); UREA NITROGEN BLOOD 36.0 mg/dL (9-23)
[2024-11-07] MEDS: SODIUM ZIRCONIUM CYCLOSILICATE 10GM/PACKET ONE (10:06)
[2024-11-07] MEDS: SODIUM ZIRCONIUM CYCLOSILICATE 10GM/PACKET PO NR (10:07)
[2024-11-08] VITALS (20 sets, daily range): BP systolic 110–147; BP diastolic 68–77; PULSE 71–85; RESP 0–18; TEMP 36.7–37.2; O2SAT 95–100
[2024-11-08 07:44] LABS: BASOPHILS % 1.0 % (0.0-2.0); EOSINOPHILS % 4.0 % (0.0-5.0); HEMATOCRIT. 23.1 % (42.0-52.0); HEMOGLOBIN. 7.9 g/dL (14.0-18.0); LYMPHOCYTES % 14.2 % (20.0-50.0); MEAN PLATELET VOLUME 7.3 fl (7.4-10.4); MONOCYTES % 7.1 % (2.0-8.0); NEUTROPHILS % 73.7 % (40.0-76.0); PLATELET 442 x1000/uL (130-400); RED BLOOD CELL COUNT 2.88 mill/uL (4.7-6.1); RED CELL DISTRIBUTION WIDTH 18.0 % (11.6-14.6)
[2024-11-08 08:03] LABS: CREATININE 1.9 mg/dL (0.6-1.3)
[2024-11-08 08:04] LABS: UREA NITROGEN BLOOD 35.0 mg/dL (9-23)
[2024-11-09] VITALS (24 sets, daily range): BP systolic 102–138; BP diastolic 63–80; PULSE 71–88; RESP 0–21; TEMP 36.7–37.503; O2SAT 96–100
[2024-11-09 06:42] LABS: BASOPHILS % 1.0 % (0.0-2.0); EOSINOPHILS % 4.0 % (0.0-5.0); HEMATOCRIT. 21.1 % (42.0-52.0); LYMPHOCYTES % 14.3 % (20.0-50.0); MEAN PLATELET VOLUME 7.4 fl (7.4-10.4); MONOCYTES % 6.0 % (2.0-8.0); NEUTROPHILS % 74.7 % (40.0-76.0); PLATELET 422 x1000/uL (130-400); RED BLOOD CELL COUNT 2.63 mill/uL (4.7-6.1); RED CELL DISTRIBUTION WIDTH 18.1 % (11.6-14.6)
[2024-11-09 06:49] LABS: CREATININE 1.9 mg/dL (0.6-1.3); UREA NITROGEN BLOOD 40.0 mg/dL (9-23)
[2024-11-09 07:04] LABS: HEMOGLOBIN. 7.0 g/dL (14.0-18.0)
[2024-11-09 14:09] LABS: BG BASE EXCESS -1.1 mmol/L (-2.0-3.0); BG CARBOXYHEMOGLOBIN 0.8 % (0.5-1.5); BG DEOXYHEMOGLOBIN 1.7 % (0.0-5.0); BG FRACTION INSPIRED OXYGEN 35; BG HCO3 ACT 21.9 mmol/L (21.0-28.0); BG METHEMOGLOBIN 0.1 % (0.5-1.5); BG OXYGEN SATURATION 98.3 % (94.0-98.0); BG OXYHEMOGLOBIN 97.4 % (94.0-98.0); BG PCO2 28.9 mmHg (35.0-48.0); BG PEEP (cmH2O) 5.0 cmH2O; BG PH 7.497 (7.350-7.450); BG PO2 107.9 mmHg (83.0-108.0); BG SAMPLE SITE LEFT RADIAL; BG TIDAL VOLUME(mL) 500.0 mL; BG TOTAL HEMOGLOBIN 7.2 g/dL (13.5-17.5); BG TOTAL RESPIRATORY RATE 16 b/min; BG VENT MODE VENT - AC; BG VENT RATE 16.0 set
[2024-11-10] VITALS (20 sets, daily range): BP systolic 112–146; BP diastolic 70–87; PULSE 77–94; RESP 0–21; TEMP 37.2–38.2; O2SAT 91–100
[2024-11-10 00:22] LABS: INR 1.1
[2024-11-10 06:26] LABS: BASOPHILS % 0.7 % (0.0-2.0); EOSINOPHILS % 2.4 % (0.0-5.0); HEMATOCRIT. 26.8 % (42.0-52.0); HEMOGLOBIN. 9.0 g/dL (14.0-18.0); LYMPHOCYTES % 11.3 % (20.0-50.0); MEAN PLATELET VOLUME 7.4 fl (7.4-10.4); MONOCYTES % 5.9 % (2.0-8.0); NEUTROPHILS % 79.7 % (40.0-76.0); PLATELET 418 x1000/uL (130-400); RED BLOOD CELL COUNT 3.23 mill/uL (4.7-6.1); RED CELL DISTRIBUTION WIDTH 19.2 % (11.6-14.6)
[2024-11-10 06:34] LABS: CREATININE 1.8 mg/dL (0.6-1.3)
[2024-11-10 06:35] LABS: UREA NITROGEN BLOOD 33.0 mg/dL (9-23)
[2024-11-11] VITALS (20 sets, daily range): BP systolic 115–151; BP diastolic 72–90; PULSE 72–83; RESP 10–18; TEMP 36.8–37.6; O2SAT 99–100
[2024-11-11 06:35] LABS: BASOPHILS % 0.7 % (0.0-2.0); EOSINOPHILS % 2.5 % (0.0-5.0); HEMATOCRIT. 23.5 % (42.0-52.0); HEMOGLOBIN. 7.8 g/dL (14.0-18.0); LYMPHOCYTES % 13.3 % (20.0-50.0); MEAN PLATELET VOLUME 7.4 fl (7.4-10.4); MONOCYTES % 6.8 % (2.0-8.0); NEUTROPHILS % 76.7 % (40.0-76.0); PLATELET 433 x1000/uL (130-400); RED BLOOD CELL COUNT 2.86 mill/uL (4.7-6.1); RED CELL DISTRIBUTION WIDTH 19.2 % (11.6-14.6)
[2024-11-11 07:25] LABS: CREATININE 1.7 mg/dL (0.6-1.3); UREA NITROGEN BLOOD 35.0 mg/dL (9-23)
[2024-11-11 07:31] LABS: ASPARTATE AMINOTRANSFERASE 33 IU/L (<34); BILIRUBIN DIRECT 0.2 mg/dL (<=3.0); BILIRUBIN TOTAL 0.4 mg/dL (0.1-1.0); PHOSPHORUS 2.4 mg/dL (2.5-4.9); PROTEIN TOTAL 6.0 g/dL (6.0-8.3)
[2024-11-11] MEDS: MAGNESIUM 2 G PREMIX 50 ML IV SCH (12:29)
[2024-11-11] MEDS: ACETAMINOPHEN 650MG/20.3ML UDC PO PRN (14:24)
[2024-11-11] MEDS: POTASSIUM PHOSPHATE 10 MMOL in DEXT 5% WATER 246.6667 ML IV SCH (14:34)
[2024-11-12] VITALS (23 sets, daily range): BP systolic 133–154; BP diastolic 77–101; PULSE 70–91; RESP 7–20; TEMP 36.8–37.2; O2SAT 97–100
[2024-11-12 05:34] LABS: BASOPHILS % 0.6 % (0.0-2.0); EOSINOPHILS % 2.9 % (0.0-5.0); HEMATOCRIT. 24.8 % (42.0-52.0); HEMOGLOBIN. 8.3 g/dL (14.0-18.0); LYMPHOCYTES % 12.9 % (20.0-50.0); MEAN PLATELET VOLUME 7.1 fl (7.4-10.4); MONOCYTES % 8.6 % (2.0-8.0); NEUTROPHILS % 75.0 % (40.0-76.0); PLATELET 434 x1000/uL (130-400); RED BLOOD CELL COUNT 3.00 mill/uL (4.7-6.1); RED CELL DISTRIBUTION WIDTH 19.4 % (11.6-14.6)
[2024-11-12 05:49] LABS: CREATININE 1.6 mg/dL (0.6-1.3)
[2024-11-12 05:50] LABS: UREA NITROGEN BLOOD 34.0 mg/dL (9-23)
[2024-11-12] MEDS: INSULIN GLARGINE 100 UNITS/ML SUBCUT SCH (23:40)
[2024-11-13] VITALS (23 sets, daily range): BP systolic 124–159; BP diastolic 70–90; PULSE 71–83; RESP 10–18; TEMP 36.8–37.6; O2SAT 95–100
[2024-11-13 09:11] LABS: BG BASE EXCESS 1.2 mmol/L (-2.0-3.0); BG CARBOXYHEMOGLOBIN 0.5 % (0.5-1.5); BG DEOXYHEMOGLOBIN 5.2 % (0.0-5.0); BG FRACTION INSPIRED OXYGEN 35; BG HCO3 ACT 25.9 mmol/L (21.0-28.0); BG METHEMOGLOBIN 0.3 % (0.5-1.5); BG OXYGEN SATURATION 94.8 % (94.0-98.0); BG OXYHEMOGLOBIN 94.0 % (94.0-98.0); BG PCO2 41.2 mmHg (35.0-48.0); BG PEEP (cmH2O) 5.0 cmH2O; BG PH 7.416 (7.350-7.450); BG PO2 71.5 mmHg (83.0-108.0); BG SAMPLE SITE RIGHT RADIAL; BG TIDAL VOLUME(mL) 500.0 mL; BG TOTAL HEMOGLOBIN 9.0 g/dL (13.5-17.5); BG VENT MODE VENT - AC; BG VENT RATE 14.0 set
[2024-11-14] VITALS (54 sets, daily range): BP systolic 66–147; BP diastolic 45–91; PULSE 66–130; RESP 0–28; TEMP 36.4–39.5; O2SAT 90–100
[2024-11-14] MEDS: IPRATROPIUM/ALBUTEROL 0.5-3(2.5)MG/3ML NEB HHN SCH (02:52)
[2024-11-14 07:24] LABS: BG BASE EXCESS -1.0 mmol/L (-2.0-3.0); BG CARBOXYHEMOGLOBIN 0.2 % (0.5-1.5); BG DEOXYHEMOGLOBIN 14.2 % (0.0-5.0); BG FRACTION INSPIRED OXYGEN 100; BG HCO3 ACT 22.4 mmol/L (21.0-28.0); BG METHEMOGLOBIN 0.3 % (0.5-1.5); BG OXYGEN SATURATION 85.7 % (94.0-98.0); BG OXYHEMOGLOBIN 85.3 % (94.0-98.0); BG PCO2 33.4 mmHg (35.0-48.0); BG PEEP (cmH2O) 10.0 cmH2O; BG PH 7.445 (7.350-7.450); BG PIP 18.0 cmH2O; BG PO2 47.7 mmHg (83.0-108.0); BG SAMPLE SITE LEFT RADIAL; BG TOTAL HEMOGLOBIN 13.1 g/dL (13.5-17.5); BG TOTAL RESPIRATORY RATE 18 b/min; BG VENT MODE VENT - P/C
[2024-11-14] MEDS: FUROSEMIDE 20MG/2ML VIAL IVP SCH (09:00)
[2024-11-14] MEDS ORDERED: CEFEPIME 2GM IN DEXT 5% 100ML IV SCH (09:15)
[2024-11-14] MEDS: SODIUM CHLORIDE 0.9% 250 ML IV ONE ×2 (09:54→11:00)
[2024-11-14] MEDS: MIDODRINE HCL 5MG TABLET PO SCH (09:55)
[2024-11-14] MEDS: IPRATROPIUM BROMIDE (0.02%) 0.5MG/2.5ML NEB HHN SCH (10:01)
[2024-11-14 10:45] LABS: HEMATOCRIT. 27.0 % (42.0-52.0); HEMOGLOBIN. 8.9 g/dL (14.0-18.0); MEAN PLATELET VOLUME 7.1 fl (7.4-10.4); PLATELET 422 x1000/uL (130-400); RED BLOOD CELL COUNT 3.17 mill/uL (4.7-6.1); RED CELL DISTRIBUTION WIDTH 19.7 % (11.6-14.6)
[2024-11-14 11:00] LABS: BG BASE EXCESS -4.7 mmol/L (-2.0-3.0); BG CARBOXYHEMOGLOBIN 0.3 % (0.5-1.5); BG DEOXYHEMOGLOBIN 0.7 % (0.0-5.0); BG FRACTION INSPIRED OXYGEN 100; BG HCO3 ACT 18.0 mmol/L (21.0-28.0); BG METHEMOGLOBIN 0.3 % (0.5-1.5); BG OXYGEN SATURATION 99.3 % (94.0-98.0); BG OXYHEMOGLOBIN 98.7 % (94.0-98.0); BG PCO2 25.3 mmHg (35.0-48.0); BG PEEP (cmH2O) 5.0 cmH2O; BG PH 7.471 (7.350-7.450); BG PIP 20.0 cmH2O; BG PO2 151.6 mmHg (83.0-108.0); BG SAMPLE SITE LEFT RADIAL; BG TOTAL HEMOGLOBIN 8.8 g/dL (13.5-17.5); BG TOTAL RESPIRATORY RATE 15 b/min; BG VENT MODE VENT - P/C; BG VENT RATE 14.0 set
[2024-11-14 11:01] LABS: CREATININE 1.6 mg/dL (0.6-1.3); UREA NITROGEN BLOOD 32.0 mg/dL (9-23)
[2024-11-14] MEDS ORDERED: NOREPINEPHRINE 8MG/250ML PMX 250 ML IV PRN (11:30)
[2024-11-14] MEDS: CEFEPIME 2GM PREMIX 100ML IV SCH (14:24)
[2024-11-14] MEDS: METHYLPREDNISOLONE SOD SUCC 125MG/2ML (ACT-O-VIAL) IV SCH (14:24)
[2024-11-14 14:26] LABS: BAND% 20.0 % (1.0-6.0); EOSINOPHILS % MANUAL 1.0 % (0.0-5.0); LYMPHOCYTES % MANUAL 7.0 % (20.0-50.0); MONOCYTES % MANUAL 11.0 % (2.0-8.0); NEUTROPHILS % MANUAL 61.0 % (45.0-75.0); PLATELET ESTIMATE INCREASED
[2024-11-14] MEDS: AZITHROMYCIN 500 MG TABLET GT SCH (18:57)
[2024-11-14 21:51] LABS: INFLUENZA TYPE A Presumptive Negative (Pres. Neg.); INFLUENZA TYPE B Presumptive Negative (Pres. Neg.)
[2024-11-14 21:52] LABS: RESPIRATORY SYNCYTIAL VIRUS Not Detected (Not Detectd)
[2024-11-15] VITALS (53 sets, daily range): BP systolic 107–157; BP diastolic 63–95; PULSE 70–99; RESP 11–29; TEMP 36.6–37.7; O2SAT 96–100
[2024-11-15] MEDS: TOBRAMYCIN SULFATE 80MG/2ML 30ML INH SCH (08:25)
[2024-11-15 08:30] LABS: BG BASE EXCESS -2.0 mmol/L (-2.0-3.0); BG CARBOXYHEMOGLOBIN 0.3 % (0.5-1.5); BG DEOXYHEMOGLOBIN 4.0 % (0.0-5.0); BG FRACTION INSPIRED OXYGEN 50; BG HCO3 ACT 22.2 mmol/L (21.0-28.0); BG METHEMOGLOBIN 0.3 % (0.5-1.5); BG OXYGEN SATURATION 96.0 % (94.0-98.0); BG OXYHEMOGLOBIN 95.4 % (94.0-98.0); BG PCO2 35.2 mmHg (35.0-48.0); BG PEEP (cmH2O) 5.0 cmH2O; BG PH 7.417 (7.350-7.450); BG PO2 76.9 mmHg (83.0-108.0); BG SAMPLE SITE RIGHT RADIAL; BG TOTAL HEMOGLOBIN 9.6 g/dL (13.5-17.5); BG VENT MODE VENT - P/C; BG VENT RATE 14.0 set
[2024-11-15] MEDS: METHYLPREDNISOLONE SOD SUCC 40MG/ML (ACT-O-VIAL) IV SCH (16:04)
[2024-11-16] VITALS (24 sets, daily range): BP systolic 112–158; BP diastolic 62–96; PULSE 71–91; RESP 12–21; TEMP 37–37.4; O2SAT 99–100
[2024-11-16 06:33] LABS: HEMATOCRIT. 24.1 % (42.0-52.0); HEMOGLOBIN. 8.1 g/dL (14.0-18.0); MEAN PLATELET VOLUME 8.0 fl (7.4-10.4); PLATELET 387 x1000/uL (130-400); RED BLOOD CELL COUNT 2.89 mill/uL (4.7-6.1); RED CELL DISTRIBUTION WIDTH 20.1 % (11.6-14.6)
[2024-11-16 06:39] LABS: UREA NITROGEN BLOOD 67.0 mg/dL (9-23)
[2024-11-16 06:41] LABS: CREATININE 3.0 mg/dL (0.6-1.3)
[2024-11-16] MEDS: SODIUM CHLORIDE 0.45% 1,000 ML IV SCH (13:14)
[2024-11-16 13:58] LABS: BAND% 16.0 % (1.0-6.0); LYMPHOCYTES % MANUAL 4.0 % (20.0-50.0); MONOCYTES % MANUAL 1.0 % (2.0-8.0); NEUTROPHILS % MANUAL 79.0 % (45.0-75.0); PLATELET ESTIMATE NORMAL
[2024-11-17] VITALS (24 sets, daily range): BP systolic 109–146; BP diastolic 68–85; PULSE 66–85; RESP 0–20; TEMP 36.4–37.5; O2SAT 98–100
[2024-11-17 06:56] LABS: HEMATOCRIT. 24.3 % (42.0-52.0); HEMOGLOBIN. 7.9 g/dL (14.0-18.0); MEAN PLATELET VOLUME 8.1 fl (7.4-10.4); PLATELET 361 x1000/uL (130-400); RED BLOOD CELL COUNT 2.90 mill/uL (4.7-6.1); RED CELL DISTRIBUTION WIDTH 19.8 % (11.6-14.6)
[2024-11-17 07:32] LABS: CREATININE 3.5 mg/dL (0.6-1.3); UREA NITROGEN BLOOD 78.0 mg/dL (9-23)
[2024-11-17] MEDS: INSULIN GLARGINE 100 UNITS/ML SUBCUT SCH (11:13)
[2024-11-17 14:31] LABS: EOSINOPHILS % MANUAL 1.0 % (0.0-5.0); LYMPHOCYTES % MANUAL 6.0 % (20.0-50.0); MONOCYTES % MANUAL 2.0 % (2.0-8.0); NEUTROPHILS % MANUAL 91.0 % (45.0-75.0); PLATELET ESTIMATE NORMAL
[2024-11-17] MEDS ORDERED: INSULIN GLARGINE 100 UNITS/ML SUBCUT SCH (22:00)
[2024-11-18] VITALS (23 sets, daily range): BP systolic 113–154; BP diastolic 67–85; PULSE 63–85; RESP 0–20; TEMP 36.6–37.3; O2SAT 96–100
[2024-11-18] MEDS: AMPICILLIN SOD/SULBACTAM NA 9 G in SODIUM CHLORIDE 0.9% 200 ML IV SCH (02:05)
[2024-11-18 05:45] LABS: HEMATOCRIT. 25.9 % (42.0-52.0); HEMOGLOBIN. 8.5 g/dL (14.0-18.0); MEAN PLATELET VOLUME 8.4 fl (7.4-10.4); PLATELET 349 x1000/uL (130-400); RED BLOOD CELL COUNT 3.09 mill/uL (4.7-6.1); RED CELL DISTRIBUTION WIDTH 19.4 % (11.6-14.6)
[2024-11-18 05:54] LABS: CREATININE 4.1 mg/dL (0.6-1.3)
[2024-11-18 05:56] LABS: UREA NITROGEN BLOOD 92.0 mg/dL (9-23)
[2024-11-18] MEDS: INSULIN LISPRO 100 UNITS/ML SUBCUT SCH ×2 (08:42→13:07)
[2024-11-18] MEDS: BLOOD SUGAR DIAGNOSTIC STRIP TEST SCH (13:05)
[2024-11-18 13:52] LABS: BAND% 8.0 % (1.0-6.0); LYMPHOCYTES % MANUAL 3.0 % (20.0-50.0); MONOCYTES % MANUAL 4.0 % (2.0-8.0); NEUTROPHILS % MANUAL 85.0 % (45.0-75.0); PLATELET ESTIMATE NORMAL
[2024-11-18] MEDS: COLISTIMETHATE SODIUM 75MG/3ML NEB SOLN NEB SCH (16:19)
[2024-11-19] VITALS (23 sets, daily range): BP systolic 124–150; BP diastolic 70–89; PULSE 69–93; RESP 13–27; TEMP 36.5–37.7; O2SAT 94–100
[2024-11-19] MEDS: AMPICILLIN/SULBACTAM 3G in SODIUM CHLORIDE 0.9% 100ML IV SCH (02:27)
[2024-11-19 08:21] LABS: HEMATOCRIT. 27.0 % (42.0-52.0); HEMOGLOBIN. 9.1 g/dL (14.0-18.0); MEAN PLATELET VOLUME 8.5 fl (7.4-10.4); PLATELET 346 x1000/uL (130-400); RED BLOOD CELL COUNT 3.25 mill/uL (4.7-6.1); RED CELL DISTRIBUTION WIDTH 19.6 % (11.6-14.6)
[2024-11-19 08:40] LABS: CREATININE 4.4 mg/dL (0.6-1.3)
[2024-11-19 09:04] LABS: UREA NITROGEN BLOOD 110.0 mg/dL (9-23)
[2024-11-19] MEDS: SODIUM CHLORIDE 0.9% 1,000 ML IV SCH (09:22)
[2024-11-19] MEDS: INSULIN LISPRO 100 UNITS/ML SUBCUT NR (13:53)
[2024-11-19 17:08] LABS: LYMPHOCYTES % MANUAL 4.0 % (20.0-50.0); MONOCYTES % MANUAL 7.0 % (2.0-8.0); NEUTROPHILS % MANUAL 89.0 % (45.0-75.0); PLATELET ESTIMATE NORMAL
[2024-11-20] VITALS (27 sets, daily range): BP systolic 96–148; BP diastolic 58–89; PULSE 78–92; RESP 13–22; TEMP 36.2–37.2; O2SAT 83–100
[2024-11-20 05:34] LABS: HEMATOCRIT. 26.5 % (42.0-52.0); HEMOGLOBIN. 8.7 g/dL (14.0-18.0); MEAN PLATELET VOLUME 8.3 fl (7.4-10.4); PLATELET 361 x1000/uL (130-400); RED BLOOD CELL COUNT 3.21 mill/uL (4.7-6.1); RED CELL DISTRIBUTION WIDTH 19.8 % (11.6-14.6)
[2024-11-20 05:43] LABS: CREATININE 4.8 mg/dL (0.6-1.3)
[2024-11-20 05:52] LABS: UREA NITROGEN BLOOD 125.0 mg/dL (9-23)
[2024-11-20] MEDS: IPRATROPIUM/ALBUTEROL 0.5-3(2.5)MG/3ML NEB HHN PRN (09:06)
[2024-11-20] MEDS ORDERED: LIDOCAINE HCL 1% 10 MG/ML 10ML VIAL ONE (10:09)
[2024-11-20 12:32] LABS: HEPATITIS A AB IGM NEGATIVE (Negative)
[2024-11-20 12:33] LABS: HEPATITIS B CORE AB IGM NEGATIVE (Negative)
[2024-11-20 12:34] LABS: HEPATITIS C AB NON REACTIVE (Neg) (Negative)
[2024-11-20] MEDS: INSULIN GLARGINE 100 UNITS/ML SUBCUT SCH (13:30)
[2024-11-20 14:10] LABS: LYMPHOCYTES % MANUAL 3.0 % (20.0-50.0); MONOCYTES % MANUAL 4.0 % (2.0-8.0); NEUTROPHILS % MANUAL 93.0 % (45.0-75.0); PLATELET ESTIMATE NORMAL
[2024-11-20] MEDS: ENOXAPARIN 30MG/0.3ML SYR SUBCUT SCH (18:29)
[2024-11-21] VITALS (22 sets, daily range): BP systolic 94–123; BP diastolic 58–72; PULSE 80–92; RESP 11–19; TEMP 36.4–37.3; O2SAT 92–100
[2024-11-21 06:59] LABS: HEMATOCRIT. 27.4 % (42.0-52.0); HEMOGLOBIN. 9.6 g/dL (14.0-18.0); MEAN PLATELET VOLUME 8.2 fl (7.4-10.4); PLATELET 352 x1000/uL (130-400); RED BLOOD CELL COUNT 3.42 mill/uL (4.7-6.1); RED CELL DISTRIBUTION WIDTH 20.4 % (11.6-14.6)
[2024-11-21 07:21] LABS: CREATININE 3.7 mg/dL (0.6-1.3); UREA NITROGEN BLOOD 89.0 mg/dL (9-23)
[2024-11-21 16:06] LABS: LYMPHOCYTES % MANUAL 6.0 % (20.0-50.0); MONOCYTES % MANUAL 13.0 % (2.0-8.0); NEUTROPHILS % MANUAL 81.0 % (45.0-75.0); PLATELET ESTIMATE NORMAL
[2024-11-22] VITALS (28 sets, daily range): BP systolic 89–137; BP diastolic 57–77; PULSE 81–91; RESP 0–20; TEMP 36.61404–37.1; O2SAT 93–100
[2024-11-22 11:36] LABS: HEMATOCRIT. 24.1 % (42.0-52.0); HEMOGLOBIN. 8.2 g/dL (14.0-18.0); MEAN PLATELET VOLUME 8.6 fl (7.4-10.4); PLATELET 292 x1000/uL (130-400); RED BLOOD CELL COUNT 2.94 mill/uL (4.7-6.1); RED CELL DISTRIBUTION WIDTH 20.5 % (11.6-14.6)
[2024-11-22 12:14] LABS: CREATININE 4.4 mg/dL (0.6-1.3); UREA NITROGEN BLOOD 100.0 mg/dL (9-23)
[2024-11-22 16:39] LABS: BAND% 3.0 % (1.0-6.0); EOSINOPHILS % MANUAL 2.0 % (0.0-5.0); LYMPHOCYTES % MANUAL 4.0 % (20.0-50.0); MONOCYTES % MANUAL 7.0 % (2.0-8.0); NEUTROPHILS % MANUAL 84.0 % (45.0-75.0); PLATELET ESTIMATE NORMAL
[2024-11-22] MEDS: ATORVASTATIN CALCIUM 40MG TABLET PO SCH (20:22)
[2024-11-23] VITALS (26 sets, daily range): BP systolic 89–121; BP diastolic 55–83; PULSE 79–90; RESP 8–21; TEMP 36.55848–37.1; O2SAT 36–100
[2024-11-23 06:07] LABS: HEMATOCRIT. 23.4 % (42.0-52.0); HEMOGLOBIN. 7.9 g/dL (14.0-18.0); MEAN PLATELET VOLUME 8.6 fl (7.4-10.4); PLATELET 310 x1000/uL (130-400); RED BLOOD CELL COUNT 2.83 mill/uL (4.7-6.1); RED CELL DISTRIBUTION WIDTH 20.1 % (11.6-14.6)
[2024-11-23 06:14] LABS: CREATININE 3.3 mg/dL (0.6-1.3); UREA NITROGEN BLOOD 63.0 mg/dL (9-23)
[2024-11-23] MEDS: ASPIRIN 81MG TABLET PO SCH (09:44)
[2024-11-23] MEDS: POTASSIUM CHLORIDE 20MEQ TABLET SR PO NR (09:44)
[2024-11-23] MEDS: POTASSIUM CHLORIDE 20MEQ/PACKET PO NR (10:03)
[2024-11-23] MEDS: MICAFUNGIN 100 MG in SODIUM CHLORIDE 0.9% 100 ML IV SCH (11:46)
[2024-11-23 19:56] LABS: BAND% 5.0 % (1.0-6.0); LYMPHOCYTES % MANUAL 5.0 % (20.0-50.0); METAMYELOCYTES % 2.0 % (0-0); MONOCYTES % MANUAL 9.0 % (2.0-8.0); MYELOCYTES % 2.0 % (0-0); NEUTROPHILS % MANUAL 77.0 % (45.0-75.0); PLATELET ESTIMATE NORMAL
[2024-11-24] VITALS (34 sets, daily range): BP systolic 105–149; BP diastolic 71–90; PULSE 74–104; RESP 0–27; TEMP 36.6–36.9; O2SAT 85–100
[2024-11-24 08:16] LABS: HEMATOCRIT. 23.3 % (42.0-52.0); HEMOGLOBIN. 7.9 g/dL (14.0-18.0); MEAN PLATELET VOLUME 8.7 fl (7.4-10.4); PLATELET 363 x1000/uL (130-400); RED BLOOD CELL COUNT 2.89 mill/uL (4.7-6.1); RED CELL DISTRIBUTION WIDTH 21.0 % (11.6-14.6)
[2024-11-24 08:22] LABS: CREATININE 3.8 mg/dL (0.6-1.3); UREA NITROGEN BLOOD 79.0 mg/dL (9-23)
[2024-11-24 17:30] LABS: BAND% 7.0 % (1.0-6.0); LYMPHOCYTES % MANUAL 8.0 % (20.0-50.0); METAMYELOCYTES % 2.0 % (0-0); MONOCYTES % MANUAL 7.0 % (2.0-8.0); MYELOCYTES % 2.0 % (0-0); NEUTROPHILS % MANUAL 74.0 % (45.0-75.0); PLATELET ESTIMATE NORMAL
[2024-11-25] VITALS (26 sets, daily range): BP systolic 126–145; BP diastolic 71–85; PULSE 77–96; RESP 0–21; TEMP 36.7–37.4; O2SAT 94–100
[2024-11-25] MEDS: AMPICILLIN/SULBACTAM 3G in SODIUM CHLORIDE 0.9% 100ML IV SCH ×2 (03:02→17:27)
[2024-11-25 06:21] LABS: CREATININE 2.9 mg/dL (0.6-1.3)
[2024-11-25 06:22] LABS: UREA NITROGEN BLOOD 55.0 mg/dL (9-23)
[2024-11-25 06:33] LABS: HEMATOCRIT. 24.4 % (42.0-52.0); HEMOGLOBIN. 8.3 g/dL (14.0-18.0); MEAN PLATELET VOLUME 8.5 fl (7.4-10.4); PLATELET 398 x1000/uL (130-400); RED BLOOD CELL COUNT 2.98 mill/uL (4.7-6.1); RED CELL DISTRIBUTION WIDTH 20.0 % (11.6-14.6)
[2024-11-25 11:26] LABS: BAND% 2.0 % (1.0-6.0); EOSINOPHILS % MANUAL 2.0 % (0.0-5.0); LYMPHOCYTES % MANUAL 14.0 % (20.0-50.0); MONOCYTES % MANUAL 4.0 % (2.0-8.0); NEUTROPHILS % MANUAL 78.0 % (45.0-75.0); PLATELET ESTIMATE NORMAL
[2024-11-26] VITALS (23 sets, daily range): BP systolic 129–152; BP diastolic 69–89; PULSE 8–99; RESP 0–19; TEMP 36.4–37.4; O2SAT 97–100
[2024-11-26 06:24] LABS: HEMATOCRIT. 24.1 % (42.0-52.0); HEMOGLOBIN. 8.0 g/dL (14.0-18.0); MEAN PLATELET VOLUME 8.3 fl (7.4-10.4); PLATELET 403 x1000/uL (130-400); RED BLOOD CELL COUNT 2.94 mill/uL (4.7-6.1); RED CELL DISTRIBUTION WIDTH 20.5 % (11.6-14.6)
[2024-11-26 06:27] LABS: CREATININE 3.2 mg/dL (0.6-1.3); UREA NITROGEN BLOOD 61 mg/dL (9-23)
[2024-11-26 06:29] LABS: PHOSPHORUS 1.3 mg/dL (2.5-4.9)
[2024-11-26] MEDS: ACETAMINOPHEN 325MG TABLET PO SCH (13:11)
[2024-11-26] MEDS: DIPHENHYDRAMINE 25MG CAPSULE PO SCH (13:11)
[2024-11-26] MEDS: POTASSIUM PHOSPHATE 30 MMOL in SODIUM CHLORIDE 0.9% 490 ML IV SCH (13:29)
[2024-11-26] MEDS: AMPHOTERICIN B LIPID COMPLEX IV SCH (14:20)
[2024-11-26] MEDS: DEXT 5% IV SCH (14:20)
[2024-11-26] MEDS: WATER IV SCH (14:20)
[2024-11-26 16:07] LABS: EOSINOPHILS % MANUAL 2.0 % (0.0-5.0); LYMPHOCYTES % MANUAL 13.0 % (20.0-50.0); MONOCYTES % MANUAL 13.0 % (2.0-8.0); NEUTROPHILS % MANUAL 72.0 % (45.0-75.0); PLATELET ESTIMATE INCREASED
[2024-11-27] VITALS (26 sets, daily range): BP systolic 134–174; BP diastolic 70–93; PULSE 70–93; RESP 0–20; TEMP 36.6–37.6; O2SAT 97–100
[2024-11-27 07:48] LABS: HEMATOCRIT. 22.9 % (42.0-52.0); HEMOGLOBIN. 7.7 g/dL (14.0-18.0); MEAN PLATELET VOLUME 8.0 fl (7.4-10.4); PLATELET 416 x1000/uL (130-400); RED BLOOD CELL COUNT 2.79 mill/uL (4.7-6.1); RED CELL DISTRIBUTION WIDTH 20.4 % (11.6-14.6)
[2024-11-27 08:07] LABS: CREATININE 3.6 mg/dL (0.6-1.3); UREA NITROGEN BLOOD 65 mg/dL (9-23)
[2024-11-27 08:10] LABS: PHOSPHORUS 2.6 mg/dL (2.5-4.9)
[2024-11-27 11:09] LABS: BAND% 2.0 % (1.0-6.0); EOSINOPHILS % MANUAL 1.0 % (0.0-5.0); LYMPHOCYTES % MANUAL 4.0 % (20.0-50.0); MONOCYTES % MANUAL 10.0 % (2.0-8.0); MYELOCYTES % 1.0 % (0-0); NEUTROPHILS % MANUAL 82.0 % (45.0-75.0); PLATELET ESTIMATE SLIGHTLY INCREASED
[2024-11-27] MEDS: AMPHOTERICIN B LIPOSOME IV SCH (13:50)
[2024-11-27] MEDS: DEXT 5% IV SCH (13:50)
[2024-11-27] MEDS: WATER IV SCH (13:50)
[2024-11-27] MEDS: MICAFUNGIN 100 MG in SODIUM CHLORIDE 0.9% 100 ML IV SCH (16:07)
[2024-11-27] MEDS: IPRATROPIUM/ALBUTEROL 0.5-3(2.5)MG/3ML NEB HHN SCH (19:41)
[2024-11-28] VITALS (26 sets, daily range): BP systolic 119–156; BP diastolic 66–111; PULSE 72–94; RESP 0–21; TEMP 36.7–37.4; O2SAT 97–100
[2024-11-28 06:54] LABS: HEMATOCRIT. 21.2 % (42.0-52.0); HEMOGLOBIN. 7.1 g/dL (14.0-18.0); MEAN PLATELET VOLUME 8.1 fl (7.4-10.4); PLATELET 370 x1000/uL (130-400); RED BLOOD CELL COUNT 2.57 mill/uL (4.7-6.1); RED CELL DISTRIBUTION WIDTH 20.5 % (11.6-14.6)
[2024-11-28 07:16] LABS: CREATININE 3.7 mg/dL (0.6-1.3); UREA NITROGEN BLOOD 65.0 mg/dL (9-23)
[2024-11-28 10:48] LABS: BG BASE EXCESS 1.3 mmol/L (-2.0-3.0); BG CARBOXYHEMOGLOBIN 0.7 % (0.5-1.5); BG DEOXYHEMOGLOBIN 2.2 % (0.0-5.0); BG FRACTION INSPIRED OXYGEN 35; BG HCO3 ACT 25.1 mmol/L (21.0-28.0); BG METHEMOGLOBIN 0.5 % (0.5-1.5); BG OXYGEN SATURATION 97.8 % (94.0-98.0); BG OXYHEMOGLOBIN 96.6 % (94.0-98.0); BG PCO2 36.0 mmHg (35.0-48.0); BG PEEP (cmH2O) 10.0 cmH2O; BG PH 7.462 (7.350-7.450); BG PO2 100.6 mmHg (83.0-108.0); BG SAMPLE SITE RIGHT RADIAL; BG TOTAL HEMOGLOBIN 6.8 g/dL (13.5-17.5); BG TOTAL RESPIRATORY RATE 15 b/min; BG VENT MODE VENT - P/C; BG VENT RATE 14.0 set
[2024-11-28] MEDS: FUROSEMIDE 40MG/4ML VIAL IVP SCH ×2 (12:29→18:14)
[2024-11-28 13:09] LABS: EOSINOPHILS % MANUAL 5.0 % (0.0-5.0); LYMPHOCYTES % MANUAL 10.0 % (20.0-50.0); MONOCYTES % MANUAL 5.0 % (2.0-8.0); MYELOCYTES % 1.0 % (0-0); NEUTROPHILS % MANUAL 79.0 % (45.0-75.0); PLATELET ESTIMATE NORMAL
[2024-11-28] MEDS: ENOXAPARIN 40MG/0.4ML SYR SUBCUT SCH (18:15)
[2024-11-28] MEDS: FAMOTIDINE 20MG TABLET PO SCH (21:06)
[2024-11-29] VITALS (23 sets, daily range): BP systolic 105–164; BP diastolic 60–95; PULSE 77–99; RESP 0–16; TEMP 36.2–37.1; O2SAT 96–100
[2024-11-29] MEDS: AMPICILLIN SOD/SULBACTAM NA 3 G in SODIUM CHLORIDE 0.9% 100 ML IV SCH (13:01)
[2024-11-29 13:29] LABS: HEMOGLOBIN. 7.1 g/dL (14.0-18.0); MEAN PLATELET VOLUME 7.8 fl (7.4-10.4); PLATELET 329 x1000/uL (130-400); RED BLOOD CELL COUNT 2.54 mill/uL (4.7-6.1); RED CELL DISTRIBUTION WIDTH 20.5 % (11.6-14.6)
[2024-11-29 13:54] LABS: CREATININE 4.0 mg/dL (0.6-1.3); UREA NITROGEN BLOOD 74.0 mg/dL (9-23)
[2024-11-29 13:55] LABS: HEMATOCRIT. 21.0 % (42.0-52.0)
[2024-11-30] VITALS (24 sets, daily range): BP systolic 121–170; BP diastolic 69–98; PULSE 79–98; RESP 12–21; TEMP 36.4–37.5; O2SAT 94–100
[2024-11-30] MEDS: COLISTIMETHATE SODIUM 75MG/3ML NEB SOLN NEB SCH (00:04)
[2024-11-30] MEDS: IPRATROPIUM/ALBUTEROL 0.5-3(2.5)MG/3ML NEB HHN SCH (00:04)
[2024-11-30 06:33] LABS: BASOPHILS % 1.1 % (0.0-2.0); EOSINOPHILS % 1.5 % (0.0-5.0); LYMPHOCYTES % 16.3 % (20.0-50.0); MEAN PLATELET VOLUME 8.0 fl (7.4-10.4); MONOCYTES % 9.0 % (2.0-8.0); NEUTROPHILS % 72.1 % (40.0-76.0); PLATELET 344 x1000/uL (130-400); RED BLOOD CELL COUNT 2.51 mill/uL (4.7-6.1); RED CELL DISTRIBUTION WIDTH 20.4 % (11.6-14.6)
[2024-11-30 06:45] LABS: CREATININE 4.1 mg/dL (0.6-1.3); UREA NITROGEN BLOOD 76.0 mg/dL (9-23)
[2024-11-30 06:48] LABS: HEMATOCRIT. 20.8 % (42.0-52.0); HEMOGLOBIN. 7.1 g/dL (14.0-18.0)
[2024-11-30 11:04] LABS: BAND% 2.0 % (1.0-6.0); EOSINOPHILS % MANUAL 1.0 % (0.0-5.0); LYMPHOCYTES % MANUAL 15.0 % (20.0-50.0); MONOCYTES % MANUAL 7.0 % (2.0-8.0); NEUTROPHILS % MANUAL 75.0 % (45.0-75.0); PLATELET ESTIMATE NORMAL
[2024-12-01] VITALS (33 sets, daily range): BP systolic 119–166; BP diastolic 66–87; PULSE 71–100; RESP 0–23; TEMP 36.7–37.6; O2SAT 96–100
[2024-12-01 07:12] LABS: BASOPHILS % 0.8 % (0.0-2.0); EOSINOPHILS % 1.2 % (0.0-5.0); LYMPHOCYTES % 14.6 % (20.0-50.0); MEAN PLATELET VOLUME 7.9 fl (7.4-10.4); MONOCYTES % 6.9 % (2.0-8.0); NEUTROPHILS % 76.5 % (40.0-76.0); PLATELET 273 x1000/uL (130-400); RED BLOOD CELL COUNT 2.16 mill/uL (4.7-6.1); RED CELL DISTRIBUTION WIDTH 20.0 % (11.6-14.6)
[2024-12-01 07:21] LABS: CREATININE 4.3 mg/dL (0.6-1.3)
[2024-12-01 07:23] LABS: UREA NITROGEN BLOOD 82.0 mg/dL (9-23)
[2024-12-01 08:00] LABS: HEMATOCRIT. 17.6 % (42.0-52.0); HEMOGLOBIN. 5.9 g/dL (14.0-18.0)
[2024-12-01] MEDS ORDERED: DEXTROSE 50% WATER 50ML SYRINGE IV PRN (08:45)
[2024-12-01] MEDS: INSULIN LISPRO 100 UNITS/ML SUBCUT SCH (09:17)
[2024-12-01] MEDS: BLOOD SUGAR DIAGNOSTIC STRIP TEST SCH (12:22)
[2024-12-01 18:43] LABS: BASOPHILS % 0.8 % (0.0-2.0); EOSINOPHILS % 1.2 % (0.0-5.0); HEMATOCRIT. 24.0 % (42.0-52.0); HEMOGLOBIN. 8.0 g/dL (14.0-18.0); LYMPHOCYTES % 12.7 % (20.0-50.0); MEAN PLATELET VOLUME 7.6 fl (7.4-10.4); MONOCYTES % 7.0 % (2.0-8.0); NEUTROPHILS % 78.3 % (40.0-76.0); PLATELET 268 x1000/uL (130-400); RED BLOOD CELL COUNT 2.86 mill/uL (4.7-6.1); RED CELL DISTRIBUTION WIDTH 18.3 % (11.6-14.6)
[2024-12-01 18:53] LABS: BG BASE EXCESS 0.5 mmol/L (-2.0-3.0); BG CARBOXYHEMOGLOBIN 0.7 % (0.5-1.5); BG DEOXYHEMOGLOBIN 2.5 % (0.0-5.0); BG FRACTION INSPIRED OXYGEN 30; BG HCO3 ACT 24.0 mmol/L (21.0-28.0); BG METHEMOGLOBIN 0.2 % (0.5-1.5); BG OXYGEN SATURATION 97.5 % (94.0-98.0); BG OXYHEMOGLOBIN 96.6 % (94.0-98.0); BG PCO2 34.2 mmHg (35.0-48.0); BG PEEP (cmH2O) 8.0 cmH2O; BG PH 7.464 (7.350-7.450); BG PIP 16.0 cmH2O; BG PO2 97.8 mmHg (83.0-108.0); BG SAMPLE SITE RIGHT RADIAL; BG TOTAL HEMOGLOBIN 9.7 g/dL (13.5-17.5); BG VENT MODE VENT - P/C; BG VENT RATE 14.0 set
[2024-12-02] VITALS (22 sets, daily range): BP systolic 121–167; BP diastolic 65–91; PULSE 68–91; RESP 14–22; TEMP 36.8–37.2; O2SAT 87–100
[2024-12-02 06:16] LABS: BASOPHILS % 0.8 % (0.0-2.0); EOSINOPHILS % 1.7 % (0.0-5.0); HEMATOCRIT. 23.8 % (42.0-52.0); HEMOGLOBIN. 8.0 g/dL (14.0-18.0); LYMPHOCYTES % 14.5 % (20.0-50.0); MEAN PLATELET VOLUME 7.6 fl (7.4-10.4); MONOCYTES % 7.0 % (2.0-8.0); NEUTROPHILS % 76.0 % (40.0-76.0); PLATELET 257 x1000/uL (130-400); RED BLOOD CELL COUNT 2.89 mill/uL (4.7-6.1); RED CELL DISTRIBUTION WIDTH 18.3 % (11.6-14.6)
[2024-12-02 06:38] LABS: CREATININE 4.3 mg/dL (0.6-1.3); UREA NITROGEN BLOOD 87.0 mg/dL (9-23)
[2024-12-02] MEDS: INSULIN GLARGINE 100 UNITS/ML SUBCUT SCH (11:12)
[2024-12-02] MEDS ORDERED: HYDRALAZINE 20MG/ML VIAL IV PRN (13:15)
[2024-12-03] VITALS (23 sets, daily range): BP systolic 136–149; BP diastolic 73–85; PULSE 84–100; RESP 10–24; TEMP 36.9–37.4; O2SAT 92–100
[2024-12-03] MEDS ORDERED: LIDOCAINE HCL/EPINEPHRINE 1%-EPI 1:100,000 20ML VIAL INFIL NR (07:30)
[2024-12-03 11:55] LABS: HEMATOCRIT. 23.3 % (42.0-52.0); HEMOGLOBIN. 8.0 g/dL (14.0-18.0); MEAN PLATELET VOLUME 7.6 fl (7.4-10.4); PLATELET 236 x1000/uL (130-400); RED BLOOD CELL COUNT 2.80 mill/uL (4.7-6.1); RED CELL DISTRIBUTION WIDTH 18.6 % (11.6-14.6)
[2024-12-03 12:11] LABS: CREATININE 4.0 mg/dL (0.6-1.3)
[2024-12-03 12:12] LABS: UREA NITROGEN BLOOD 91.0 mg/dL (9-23)
[2024-12-03 14:22] LABS: BAND% 2.0 % (1.0-6.0); LYMPHOCYTES % MANUAL 5.0 % (20.0-50.0); MONOCYTES % MANUAL 5.0 % (2.0-8.0); NEUTROPHILS % MANUAL 88.0 % (45.0-75.0); PLATELET ESTIMATE NORMAL
[2024-12-03] MEDS ORDERED: CEFEPIME 1,000 MG in DEXT 5% WATER 100 ML IV SCH (18:15)
[2024-12-03] MEDS: CEFEPIME 1GM PREMIX 50ML IV SCH (20:15)
[2024-12-03] MEDS: LINEZOLID 600 MG PREMIX 300 ML IV SCH (20:15)
[2024-12-04] VITALS (25 sets, daily range): BP systolic 112–156; BP diastolic 55–91; PULSE 79–94; RESP 0–23; TEMP 36.6–37.4; O2SAT 94–100
[2024-12-04 06:10] LABS: CREATININE 3.9 mg/dL (0.6-1.3); UREA NITROGEN BLOOD 90.0 mg/dL (9-23)
[2024-12-04 06:45] LABS: BASOPHILS % 0.9 % (0.0-2.0); EOSINOPHILS % 1.8 % (0.0-5.0); HEMATOCRIT. 23.2 % (42.0-52.0); HEMOGLOBIN. 7.8 g/dL (14.0-18.0); LYMPHOCYTES % 10.9 % (20.0-50.0); MEAN PLATELET VOLUME 8.1 fl (7.4-10.4); MONOCYTES % 6.8 % (2.0-8.0); NEUTROPHILS % 79.6 % (40.0-76.0); PLATELET 236 x1000/uL (130-400); RED BLOOD CELL COUNT 2.78 mill/uL (4.7-6.1); RED CELL DISTRIBUTION WIDTH 18.3 % (11.6-14.6)
[2024-12-04] MEDS: POTASSIUM CHLORIDE 20MEQ/PACKET PO SCH (10:57)
[2024-12-05] VITALS (26 sets, daily range): BP systolic 110–150; BP diastolic 62–93; PULSE 79–95; RESP 11–22; TEMP 36.1–37.72524; O2SAT 95–100
[2024-12-05 08:38] LABS: BASOPHILS % 0.5 % (0.0-2.0); EOSINOPHILS % 3.9 % (0.0-5.0); LYMPHOCYTES % 11.0 % (20.0-50.0); MEAN PLATELET VOLUME 8.0 fl (7.4-10.4); MONOCYTES % 7.1 % (2.0-8.0); NEUTROPHILS % 77.5 % (40.0-76.0); PLATELET 247 x1000/uL (130-400); RED BLOOD CELL COUNT 2.41 mill/uL (4.7-6.1); RED CELL DISTRIBUTION WIDTH 18.2 % (11.6-14.6)
[2024-12-05 08:44] LABS: CREATININE 3.7 mg/dL (0.6-1.3); UREA NITROGEN BLOOD 85 mg/dL (9-23)
[2024-12-05 08:46] LABS: PHOSPHORUS 4.2 mg/dL (2.5-4.9)
[2024-12-05 09:01] LABS: HEMATOCRIT. 20.1 % (42.0-52.0); HEMOGLOBIN. 6.7 g/dL (14.0-18.0)
[2024-12-05] MEDS: POTASSIUM CHLORIDE 20MEQ TABLET SR PO NR (17:53)
[2024-12-05] MEDS: FERROUS SULFATE 325MG TABLET PO SCH (17:54)
[2024-12-05 20:16] LABS: PHOSPHORUS 4.1 mg/dL (2.5-4.9)
[2024-12-05 20:33] LABS: INR 1.1
[2024-12-05] MEDS: MICAFUNGIN 150 MG in SODIUM CHLORIDE 0.9% 100 ML IV SCH (20:57)
[2024-12-05] MEDS: IPRATROPIUM/ALBUTEROL 0.5-3(2.5)MG/3ML NEB HHN SCH (21:02)
[2024-12-06] VITALS (22 sets, daily range): BP systolic 121–160; BP diastolic 69–90; PULSE 84–102; RESP 0–22; TEMP 36.4–36.8; O2SAT 79–100
[2024-12-06 13:00] LABS: BASOPHILS % 0.9 % (0.0-2.0); EOSINOPHILS % 3.7 % (0.0-5.0); HEMATOCRIT. 22.8 % (42.0-52.0); HEMOGLOBIN. 7.8 g/dL (14.0-18.0); LYMPHOCYTES % 10.9 % (20.0-50.0); MEAN PLATELET VOLUME 7.8 fl (7.4-10.4); MONOCYTES % 8.7 % (2.0-8.0); NEUTROPHILS % 75.8 % (40.0-76.0); PLATELET 278 x1000/uL (130-400); RED BLOOD CELL COUNT 2.73 mill/uL (4.7-6.1); RED CELL DISTRIBUTION WIDTH 17.1 % (11.6-14.6)
[2024-12-06 13:19] LABS: CREATININE 3.5 mg/dL (0.6-1.3); UREA NITROGEN BLOOD 93.0 mg/dL (9-23)
[2024-12-06] MEDS: POTASSIUM CHLORIDE 20MEQ/PACKET PO SCH (15:45)
[2024-12-06] MEDS: CLONIDINE 0.1MG TABLET PEG SCH (17:46)
== END 2024-12-06 19:55 | DRG 4 ==
LOC: ER 14:52 → MICUNO 15:59 → EDBEDREQ 16:04 → EDBEDREQTM 16:04 → ENRESERV 16:10 → MICUSO 10-06 18:00 → 6WST 10-11 22:35 → MICUSO 10-13 05:46 → 5EST 10-17 23:25 → MICUSO 11-14 15:05 → 5EST 11-15 13:29
PROVIDERS: ADMIT Internal Medicine; ATTEND Internal Medicine
PROC: 5A1955Z Respiratory Ventilation, Greater than 96 Consecutive Hours (ICD-10-PCS; principal; 2024-10-05)
PROC: 0BH17EZ Insertion of Endotracheal Airway into Trachea, Via Natural or Artificial Opening (ICD-10-PCS; 2024-10-05)
PROC: 5A12012 Performance of Cardiac Output, Single, Manual (ICD-10-PCS; 2024-10-05)
PROC: 5A1D70Z Performance of Urinary Filtration, Intermittent, Less than 6 Hours Per Day (ICD-10-PCS; 2024-10-06)
PROC: 02HV33Z Insertion of Infusion Device into Superior Vena Cava, Percutaneous Approach (ICD-10-PCS; 2024-10-06)
PROC: B548ZZA Ultrasonography of Superior Vena Cava, Guidance (ICD-10-PCS; 2024-10-06)
PROC: 4A00X4Z Measurement of Central Nervous Electrical Activity, External Approach (ICD-10-PCS; 2024-10-07)
PROC: 5A12012 Performance of Cardiac Output, Single, Manual (ICD-10-PCS; 2024-10-13)
PROC: 0BH17EZ Insertion of Endotracheal Airway into Trachea, Via Natural or Artificial Opening (ICD-10-PCS; 2024-10-13)
PROC: 5A1945Z Respiratory Ventilation, 24-96 Consecutive Hours (ICD-10-PCS; 2024-10-13)
PROC: 05HY33Z Insertion of Infusion Device into Upper Vein, Percutaneous Approach (ICD-10-PCS; 2024-10-13)
PROC: 0B110F4 Bypass Trachea to Cutaneous with Tracheostomy Device, Open Approach (ICD-10-PCS; 2024-10-15)
PROC: 0GBJ0ZZ Excision of Thyroid Gland Isthmus, Open Approach (ICD-10-PCS; 2024-10-15)
PROC: 5A1955Z Respiratory Ventilation, Greater than 96 Consecutive Hours (ICD-10-PCS; 2024-10-15)
PROC: 05HY33Z Insertion of Infusion Device into Upper Vein, Percutaneous Approach (ICD-10-PCS; 2024-10-16)
PROC: B54NZZA Ultrasonography of Left Upper Extremity Veins, Guidance (ICD-10-PCS; 2024-10-16)
PROC: 5A1D70Z Performance of Urinary Filtration, Intermittent, Less than 6 Hours Per Day (ICD-10-PCS; 2024-10-20)
PROC: 5A1D70Z Performance of Urinary Filtration, Intermittent, Less than 6 Hours Per Day (ICD-10-PCS; 2024-10-22)
PROC: 0DH63UZ Insertion of Feeding Device into Stomach, Percutaneous Approach (ICD-10-PCS; 2024-10-23)
PROC: 5A1D70Z Performance of Urinary Filtration, Intermittent, Less than 6 Hours Per Day (ICD-10-PCS; 2024-10-24)
PROC: 30243N1 Transfusion of Nonautologous Red Blood Cells into Central Vein, Percutaneous Approach (ICD-10-PCS; 2024-11-03)
PROC: 06HY33Z Insertion of Infusion Device into Lower Vein, Percutaneous Approach (ICD-10-PCS; 2024-11-20)
PROC: B54BZZA Ultrasonography of Right Lower Extremity Veins, Guidance (ICD-10-PCS; 2024-11-20)
PROC: 0QB10ZZ Excision of Sacrum, Open Approach (ICD-10-PCS; 2024-12-03)
DX: A41.52 Sepsis due to Pseudomonas (principal); I46.9 Cardiac arrest, cause unspecified; I63.29 Cerebral infarction due to unspecified occlusion or stenosis of other precerebral arteries; J15.1 Pneumonia due to Pseudomonas; N17.0 Acute kidney failure with tubular necrosis; R65.21 Severe sepsis with septic shock; J69.0 Pneumonitis due to inhalation of food and vomit; G93.41 Metabolic encephalopathy; L89.154 Pressure ulcer of sacral region, stage 4; T80.211A Bloodstream infection due to central venous catheter, initial encounter; Z20.822 Contact with and (suspected) exposure to COVID-19; B37.7 Candidal sepsis; E87.20 Acidosis, unspecified; J96.01 Acute respiratory failure with hypoxia; R13.12 Dysphagia, oropharyngeal phase; R57.1 Hypovolemic shock; I47.10 Supraventricular tachycardia, unspecified; E11.22 Type 2 diabetes mellitus with diabetic chronic kidney disease; I13.0 Hypertensive heart and chronic kidney disease with heart failure and stage 1 through stage 4 chronic kidney disease, or unspecified chronic kidney disease; I50.32 Chronic diastolic (congestive) heart failure; N18.9 Chronic kidney disease, unspecified; L97.929 Non-pressure chronic ulcer of unspecified part of left lower leg with unspecified severity; E87.5 Hyperkalemia; I21.A1 Myocardial infarction type 2; Z99.2 Dependence on renal dialysis; K76.0 Fatty (change of) liver, not elsewhere classified; E46 Unspecified protein-calorie malnutrition; B95.62 Methicillin resistant Staphylococcus aureus infection as the cause of diseases classified elsewhere; B96.1 Klebsiella pneumoniae [K. pneumoniae] as the cause of diseases classified elsewhere; D72.823 Leukemoid reaction; D50.9 Iron deficiency anemia, unspecified; E53.8 Deficiency of other specified B group vitamins; J44.0 Chronic obstructive pulmonary disease with (acute) lower respiratory infection; E87.0 Hyperosmolality and hypernatremia; M21.962 Unspecified acquired deformity of left lower leg; Z93.1 Gastrostomy status; R47.02 Dysphasia; E78.5 Hyperlipidemia, unspecified; Z86.73 Personal history of transient ischemic attack (TIA), and cerebral infarction without residual deficits; N40.0 Benign prostatic hyperplasia without lower urinary tract symptoms; R32 Unspecified urinary incontinence; R62.7 Adult failure to thrive; Z16.13 Resistance to carbapenem; Z79.4 Long term (current) use of insulin; Z79.82 Long term (current) use of aspirin; R33.9 Retention of urine, unspecified; Z79.899 Other long term (current) drug therapy; L89.890 Pressure ulcer of other site, unstageable; S60.521A Blister (nonthermal) of right hand, initial encounter; X58.XXXA Exposure to other specified factors, initial encounter; Y93.89 Activity, other specified; Y92.89 Other specified places as the place of occurrence of the external cause; Y99.8 Other external cause status; Y84.1 Kidney dialysis as the cause of abnormal reaction of the patient, or of later complication, without mention of misadventure at the time of the procedure; Y92.238 Other place in hospital as the place of occurrence of the external cause; Z68.38 Body mass index [BMI] 38.0-38.9, adult
CPT/HCPCS: 31500; 31720; 36415; 36556; 36573; 36600; 70496; 70498; 70551; 71045; 73590; 74018; 76700; 77001; 78580; 80048; 80053; 80061; 80076; 80202; 80305; 80320; 81003; 82140; 82270; 82375; 82550; 82607; 82728; 82746; 82805; 82962; 83036; 83540; 83550; 83605; 83735; 83880; 84100; 84132; 84145; 84443; 84478; 84484; 85014; 85018; 85025; 85027; 85044; 85049; 85379; 85384; 86705; 86709; 86850; 86900; 86920; 87070; 87077; 87106; 87186; 87340; 87420; 87426; 87804; 90935; 92950; 93005; 93306; 93923; 93970; 93971; 94002; 94003; 94070; 94640; 94664; 94760; 95816; 98960; 99291; A4606; A6261; C1725; C1752; J0287; J0289; J0295; J0360; J0456; J0612; J0692; J0770; J1265; J1308; J1642; J1650; J1815; J1938; J2003; J2004; J2020; J2248; J2371; J2470; J2543; J2704; J2765; J2919; J3010; J3260; J3373; J3475; J3490; J7030; J7040; J7050; J7060; J7070; J7608; P9016; Q0163; Q9967; G0480